=== PATIENT | male | born 1945 | race Caucasian/White ===

== ENCOUNTER 2016-06-11 13:27 | Inpatient (IN) | payer OTHER, MEDICARE ==
[~2016-06-11] VITALS: Ht 182.9 cm; Wt 115.4 kg
[2016-06-13] MEDS ORDERED: WARF-58 PO (14:09)
[2016-06-13] MEDS ORDERED: METO50TA PO (14:09)
[2016-06-13] MEDS ORDERED: ATOR20TA15 PO (14:09)
[2016-06-13] MEDS ORDERED: WARF-60 PO (14:09)
[2016-06-13] MEDS ORDERED: DIGO0.127 PO (14:12)
[2016-06-13] MEDS ORDERED: LISI2.5T3 PO (14:12)
[2016-06-13] MEDS ORDERED: VITA250C3 CHEW (14:13)
[2016-06-13] MEDS ORDERED: CENTTAB8 PO (14:13)
[2016-06-17] MEDS ORDERED: ENOX40P SQ (07:11)
[2016-06-17] MEDS ORDERED: HYDR-3288 PO (07:12)
[2016-06-17] MEDS ORDERED: ASPI81CH37 CHEW (07:12)
[2016-06-17] MEDS ORDERED: MORPHINE SULFATE 4 MG/ML INJ IV PUSH PRN (07:30)
[2016-06-17] MEDS ORDERED: PILL SPLITTER OTHER PRN (07:30)
[2016-06-17] MEDS ORDERED: Post-op Orders (for Pharmacy) MISC XX ONE (07:30)
[2016-06-17] MEDS ORDERED: ZOLPIDEM TARTRATE 5 MG TAB PO PRN (07:30)
[2016-06-17] MEDS ORDERED: ONDANSETRON HCL 4 MG/2 ML VIAL IVP PRN (07:30)
[2016-06-17] MEDS ORDERED: ALUMINUM/MAGNESIUM/SIMETH 30 ML CUP PO PRN (07:30)
[2016-06-17] MEDS ORDERED: BISACODYL 10 MG SUPP PR PRN (07:30)
[2016-06-17] MEDS ORDERED: SODIUM CHLORIDE 0.9% FLUSH 5 ML FLUSH IVF PRN (07:30)
[2016-06-17] MEDS ORDERED: NALOXONE HCL 0.4 MG/ML AMP IV PRN (07:30)
[2016-06-17] MEDS ORDERED: diphenhydrAMINE HCL 50 MG/ML VIAL IV PRN (07:30)
[2016-06-17 08:00] VITALS: BP 158/89; PULSE 97; RESP 20; TEMP 98.4; O2SAT 94
[2016-06-17] MEDS ORDERED: POVIDONE IODINE 7.5% SCRUB 118 ML BOTTLE TOP SCH (08:30)
[2016-06-17] MEDS ORDERED: VANCOMYCIN 1000 MG/NS 250 ML (for <70 kg) IV SCH ×2 (08:30)
[2016-06-17] MEDS ORDERED: ceFAZolin 2 GM PREMIX 50 ML IV SCH (08:30)
[2016-06-17] MEDS ORDERED: CHLORHEXIDINE GLUCONATE 4% SOLN 120 ML BTL TOP SCH (08:30)
[2016-06-17 08:37] LABS: PROTHROMBIN TIME - PATIENT 11.6 SEC (9.8-11.6)
[2016-06-17] MEDS ORDERED: INSULIN HUMAN REGULAR 1,000 UNITS/10 ML VIAL SQ PRN (08:45)
[2016-06-17] MEDS ORDERED: DEXAMETHASONE SOD PHOS 20 MG/5 ML VIAL IV SCH (08:45)
[2016-06-17] MEDS ORDERED: METOPROLOL TARTRATE 25 MG TAB PO PRN (08:45)
[2016-06-17] MEDS ORDERED: LACTATED RINGER'S 1000 ML IV SCH (09:00)
[2016-06-17] MEDS ORDERED: SODIUM CHLORIDE 0.9% IV SCH (09:00)
[2016-06-17] MEDS ORDERED: MULTIVITAMINS/MINERALS THERAPEUTIC TAB PO SCH (09:00)
[2016-06-17] MEDS ORDERED: TRANEXAMIC ACID INJ 2,000 MG in SODIUM CHLORIDE 0.9% INJ 100 ML P-ARTICULR SCH (09:00)
[2016-06-17] MEDS ORDERED: TRANEXAMIC ACID IV SCH (09:00)
[2016-06-17] MEDS ORDERED: SODIUM CHLORID 0.9% 500 ML IV SCH (09:00)
[2016-06-17] MEDS ORDERED: BUPIVACAINE LIPOSO PF 1.3% INJ 20 ML in SODIUM CHLORIDE 0.9% INJ 40 ML P-ARTICULR SCH (09:00)
[2016-06-17] MEDS ORDERED: GENTAMICIN SULFATE 80 MG/2 ML VIAL ONE (09:36)
[2016-06-17] MEDS ORDERED: fentaNYL CITRATE 250 MCG/5 ML AMP ONE (09:44)
[2016-06-17] MEDS ORDERED: MIDAZOLAM HCL 2 MG/2 ML VIAL ONE (09:44)
[2016-06-17] MEDS ORDERED: FAMOTIDINE 20 MG/2 ML VIAL ONE (09:44)
[2016-06-17] MEDS ORDERED: ONDANSETRON HCL 4 MG/2 ML VIAL ONE (09:48)
[2016-06-17] MEDS ORDERED: ACETAMINOPHEN 1000 MG/100 ML VIAL IV ONE (09:48)
[2016-06-17] MEDS ORDERED: SODIUM CHLORIDE 0.9% P-ARTICULR SCH (10:30)
[2016-06-17] MEDS ORDERED: TRANEXAMIC ACID P-ARTICULR SCH (10:30)
[2016-06-17] MEDS ORDERED: LACTATED RINGER'S 1000 ML INJ 1,000 ML IV ONE (12:00)
[2016-06-17] MEDS ORDERED: ePHEDrine/NS 25 MG/5 ML SYR IV ONE (12:00)
[2016-06-17] MEDS ORDERED: PROPOFOL 200 MG/20 ML AMP IV ONE (12:00)
[2016-06-17] MEDS ORDERED: PHENYLEPH/NS 1000 MCG/10 ML SYR IV ONE (12:00)
[2016-06-17] MEDS ORDERED: NEOSTIGMINE 3 MG/3 ML SYR IV ONE (12:00)
[2016-06-17] MEDS ORDERED: SODIUM CHLORID 0.9% 500 ML INJ 500 ML IV ONE (12:00)
[2016-06-17] MEDS ORDERED: DO NOT ADM ANY ANTICOAGULANT DRUGS XX PRN (12:47)
[2016-06-17] MEDS ORDERED: RESP: LEVALBUTEROL HYDROCHLORIDE 1.25 MG/3 ML NEB (SCH) NEB ONE (13:30)
[2016-06-17] MEDS ORDERED: *morphine SULFATE 8 MG/ML PERIprocedure ONLY ONE (13:38)
[2016-06-17] MEDS: SODIUM CHLOR 0.9% 1000 ML INJ 1,000 ML IV SCH ×2 (13:55→17:52)
[2016-06-17] MEDS ORDERED: METOPROLOL TARTRATE 5 MG/5 ML VIAL ONE ×2 (14:16→14:33)
[2016-06-17] MEDS ORDERED: *HYDROmorphone PF 1 MG VIAL PERIprocedural Use ONLY ONE (14:16)
[2016-06-17] MEDS ORDERED: FUROSEMIDE 20 MG/2 ML VIAL IV PUSH ONE (14:45)
[2016-06-17] MEDS ORDERED: FUROSEMIDE 20 MG/2 ML VIAL ONE (14:46)
--- NOTE | 2016-06-17 14:52 | RADRPT ---
EXAM DATE/TIME: 06/17/2016 12:42 [facility] COMPARISON: No previous studies available for comparison. INDICATIONS : Post op left hip. MEDICAL HISTORY : None. SURGICAL HISTORY : left hip replaced ENCOUNTER: Initial ACUITY: 1 day PAIN SCORE: 10/10 LOCATION: Left hip FINDINGS: 3 views of the left hip reveal a total hip prosthesis in good position. No fractures or dislocations are seen. Osteoarthritic changes are seen involving the right hip and SI joints. Degenerative changes seen involving the lower lumbar spine. Soft tissue surgical lubna. CONCLUSION: Left hip prosthesis in good position. Adrian Morales Jr., MD on June 17, 2016 at 14:11 Board Certified Radiologist. This report was verified electronically.
--- NOTE | 2016-06-17 14:59 | RADRPT ---
EXAM DATE/TIME: 06/17/2016 13:32 [facility] COMPARISON: No previous studies available for comparison. INDICATIONS : Post central line placement MEDICAL HISTORY : None. SURGICAL HISTORY : hip replacement, c-spine ENCOUNTER: Initial ACUITY: 1 day PAIN SCORE: 0/10 LOCATION: Bilateral chest FINDINGS: The heart size is enlarged. She presented the bases. Mid-upper lungs are relatively clear. There is a n anterior cervical fusion plate present. No central line is seen at the neck or upper chest. There d oes appear to be a suspected linear density seen over the hepatic portion of the IVC. CONCLUSION: Bibasilar areas of consolidation or atelectasis. Yvon Pop MD on June 17, 2016 at 14:56 Board Certified Radiologist. This report was verified electronically.
[2016-06-17] MEDS ORDERED: DIGOXIN 0.5 MG/2 ML VIAL IV PUSH ONE (15:15)
[2016-06-17] MEDS ORDERED: SODIUM CHLORIDE 0.9% INJ 50 ML ONE (16:42)
[2016-06-17 18:00] VITALS: PULSE 120
[2016-06-17 18:24] LABS: AUTOMATED NEUTROPHIL # 12.7 TH/MM3 (1.8-7.7); BASOPHIL % 0.1 % (0.0-2.0); HEMATOCRIT 41.6 % (39.0-51.0); HEMO FLAGS DIFF FINAL; LYMPHOCYTE # 0.6 TH/MM3 (1.0-4.8); MEAN CELL VOLUME 94.3 FL (80.0-100.0); MEAN CORPUSCULAR HEMOGLOBIN 31.4 PG (27.0-34.0); MEAN CORPUSCULAR HGB CONC 33.3 % (32.0-36.0); MONO % 3.7 % (0.0-8.0); NEUT % 92.2 % (16.0-70.0); PLATELET COUNT 128 TH/MM3 (150-450); RED BLOOD COUNT 4.41 MIL/MM3 (4.50-5.90); RED CELL DISTRIBUTION WIDTH 13.8 % (11.6-17.2); REVIEW FLAG FINAL; WHITE BLOOD COUNT 13.8 TH/MM3 (4.0-11.0)
[2016-06-17 18:41] LABS: ANION GAP 7 MEQ/L (5-15); AST (GOT) 47 U/L (15-37); BLOOD UREA NITROGEN 17 MG/DL (7-18); CHLORIDE 105 MEQ/L (98-107); GLOMERULAR FILTRATION RATE 72 ML/MIN (>89); POTASSIUM 4.5 MEQ/L (3.5-5.1); SODIUM (NA) 141 MEQ/L (136-145)
--- NOTE | 2016-06-17 18:42 | PD.CONS ---
[facility] Service Critical Care Medicine Consult Requested By Orthopedic Surgery Reason for Consult Tachycardia, Atrial flutter/fib Primary Care Physician Cecille Mantilla MD History of Present Illness 70 y/o man s/p left leg orthopedic procedure (BASILIO) with SVT and SOB. Seen on arrival to [facility] with mild SOB and moderate tachycardia 120s. Review of Systems ROS Chronic hoarseness. No chest pain. Breathing without difficulty. Past Family Social History Allergies: Coded Allergies: No Known Allergies (Verified , 06/17/16) Past Medical History Atrial flutter/fib Physical Exam Vital Signs Vital Signs Date Time Temp Pulse Resp B/P Pulse Ox O2 Delivery O2 Flow Rate FiO2 06/17/16 17:00 119 20 128/80 90 Aerosol Mask 98 133/65 06/17/16 16:45 Aerosol Mask 70 06/17/16 16:00 97.8 06/17/16 16:00 115 22 126/78 94 135/67 06/17/16 15:00 116 22 123/77 95 Aerosol Mask 98 133/67 06/17/16 14:45 116 24 124/92 93 Aerosol Mask 98 124/70 06/17/16 14:30 112 24 127/78 94 Aerosol Mask 98 122/63 06/17/16 14:15 118 26 139/90 93 Aerosol Mask 98 141/75 06/17/16 14:00 117 24 124/79 91 Aerosol Mask 98 131/71 06/17/16 13:45 118 26 129/90 92 Aerosol Mask 98 06/17/16 13:30 112 24 130/75 92 Aerosol Mask 98 158/74 06/17/16 13:15 115 18 137/86 96 Aerosol Mask 98 163/84 06/17/16 13:00 119 22 133/86 94 Non-Rebreather 100 173/77 06/17/16 12:55 98.7 124 26 153/91 89 Simple Mask 10 06/17/16 08:00 98.4 97 20 158/89 94 Physical Exam P 118 - 138, BP 132/78, R 16 nonlabored, Sats 93% NRBM Head: Normal. Neck: Supple, airway patent. Hoarse voice, no stridor. Heart: Irreg, Irreg, No JVD. Abdomen: Soft, no guarding. Extremities: Well perfused. Splint left leg. Neuro: Alert, conversant. Wiggles toes and fingers to command. Laboratory Laboratory Tests Test 06/17/16 06/17/16 07:49 08:10 Blood Type A POSITIVE Antibody Screen NEGATIVE Prothrombin Time 11.6 Prothromb Time International 1.0 Ratio Assessment and Plan Assessment and Plan Assessment: 1. S/P left BASILIO. 2. Atrial fibrillation/flutter. 3. SOB/hypoxemia. Plan: 1. Additional dose lopressor for tachycardia. 2. BNP. 3. Protonix. 4. DVT per Surgery. 5. BiPAP prn. 6. Cardiac markers. Overall impression: Stable respiratory and hemodynamic status. Watch respiratory function closely, control ventricular rate. Mendoza Winter MD Jun 17, 2016 18:42
[2016-06-17 18:44] LABS: ALKALINE PHOSPHATASE 123 U/L (45-117); ALT (GPT) 48 U/L (12-78); TOTAL BILIRUBIN ADULT 0.8 MG/DL (0.2-1.0)
[2016-06-17 20:00] VITALS: BP 123/71; PULSE 104; PULSE 115; RESP 18; TEMP 98; O2SAT 99
[2016-06-17 20:05] VITALS: O2SAT 95
[2016-06-17] MEDS: RESP: ALBUTEROL 2.5 MG/IPRATROPIUM 0.5 MG NEB (SCH) NEB (20:05)
--- NOTE | 2016-06-17 20:26 | MB ---
cc: NOBLE LOPEZ,BENJAMIN ROSAS M.D., MD DATE OF CONSULTATION 06/17/[address] Cecille Mantilla [employer] MANAGER Dr. Benjamin Del Real REASON FOR CONSULTATION Postoperative atrial fibrillation. HISTORY OF PRESENT ILLNESS Sid Tate is a pleasant 70-year-old male who presented to [facility] for elective left hip surgery with Dr. Brandan Jacobo. Preoperatively, he took his digoxin and beta-maricarmen therapy. Before the procedure he was noted to be hypertensive with a blood pressure of 160/90 and a heart rate of 100. During the procedure it appears that he continued to have atrial flutter with rapid ventricular response. He was given 5 milligrams of Lopressor IV during the procedure. Postprocedure he was noted to have a pulse ox of 94% and so he was placed on an aerosol mask. I was asked to see Mr. Tate due to his shortness of breath and atrial fibrillation. In seeing him he states that he feels well and just feels sore at his left hip where he had surgery. He denies chest pain or shortness of breath. PAST MEDICAL HISTORY 1. Chronic atrial fibrillation/flutter. 2. Hypertension. 3. Hyperlipidemia. 4. Osteoarthritis. PAST SURGICAL HISTORY 1. Right knee surgery for a meniscal tear. 2. Spinal fusion of C4-C5. ALLERGIES NO KNOWN DRUG ALLERGIES. MEDICATIONS 1. Lisinopril 2.5 milligrams daily. 2. Coumadin to keep INR 2 to 3. 3. Metoprolol tartrate 50 milligrams b.i.d. 4. Digoxin 0.125 milligrams daily. 5. Lipitor 20 milligrams every night. 6. Aspirin 81 milligrams daily. 7. Vitamin C daily. FAMILY HISTORY Denies premature coronary artery disease or sudden cardiac within the family. SOCIAL HISTORY The patient occasionally smokes a cigar. Denies alcohol or drug abuse. REVIEW OF SYSTEMS 14-systems were reviewed including osteopathic. Pertinent positives and negatives above otherwise negative. PHYSICAL EXAMINATION VITAL SIGNS: Temperature 97.8, heart rate 115, blood pressure 135/67, respirations 22, pulse ox 94% on aerosol mask. GENERAL: In general the patient appears well, in no acute distress, alert, awake and oriented x3. HEENT: Extraocular muscles intact. Mucous membranes moist. Neck is supple. No JVD at 45 degrees. No carotid bruits heard bilaterally. Carotid upstroke is brisk in nature. HEART: Heart is irregularly irregular. Positive first and second heart sounds with no murmurs, gallops or rubs. PMI is difficult to ascertain due to body habitus. LUNGS: Lungs have decreased breath sounds at bilateral bases with minimal crackles in the right lower lung. ABDOMEN: Soft, nontender, nondistended. No organomegaly noted. EXTREMITIES: Right lower extremity shows no clubbing, cyanosis or edema. NEUROLOGICALLY: No focal deficits. SKIN: Warm, dry and intact. OSTEOPATHIC: No kyphoscoliosis, lordosis or paraspinal tender points. CARDIOLOGY STUDIES Electrocardiogram (June 17, 2016 at 15:30) atrial flutter with rapid ventricular response, nonspecific ST-T wave changes. IMPRESSION 1. Chronic atrial fibrillation with rapid ventricular response postoperatively. 2. Left hip osteoarthritis status post total hip replacement. 3. Probable bibasilar atelectasis with mild heart failure. 4. Hypertension. RECOMMENDATIONS 1. Mr. Tate appears to be in atrial flutter with a rapid ventricular response. I will plan on giving him 500 micrograms of IV digoxin which may take a little while to work but may control him better overnight. 2. If need be he can be given Lopressor IV or Cardizem to better control his rate. 3. Appears to have some mild postoperative atelectasis and mild heart failure. We will give him a dose of Lasix. 4. Postoperative EKG shows no significant changes. 5. Will plan on transferring him to the Intensive Care Unit to be watched overnight. 6. Further recommendations will be made based on the hospital course. Thank you for allowing me to see Sid Tate. If there are any questions please do not hesitate to call. Noble Lopez DO VGP/EO /4:17 PM /7:00 PM
[2016-06-17] MEDS: ATORVASTATIN 20 MG TAB PO SCH (20:54)
[2016-06-17] MEDS: METOPROLOL TARTRATE 50 MG TAB PO SCH (20:55)
[2016-06-17 22:00] VITALS: PULSE 112
[2016-06-18] VITALS (14 sets, daily range): BP systolic 110–145; BP diastolic 57–80; PULSE 85–118; RESP 16–22; TEMP 97.7–98.6; O2SAT 92–97
[2016-06-18] MEDS: RESP: ALBUTEROL 2.5 MG/IPRATROPIUM 0.5 MG NEB (SCH) NEB ×4 (02:45→19:32)
[2016-06-18] MEDS: ACETAMINOPHEN/HYDROcodone 325 MG/7.5 MG TAB PO PRN ×3 (03:31→22:44)
[2016-06-18] MEDS: SODIUM CHLOR 0.9% 1000 ML INJ 1,000 ML IV SCH ×2 (04:00→14:01)
[2016-06-18 05:15] LABS: HEMATOCRIT 37.5 % (39.0-51.0); MEAN CELL VOLUME 93.9 FL (80.0-100.0); MEAN CORPUSCULAR HEMOGLOBIN 31.7 PG (27.0-34.0); MEAN CORPUSCULAR HGB CONC 33.8 % (32.0-36.0); PLATELET COUNT 125 TH/MM3 (150-450); RED CELL DISTRIBUTION WIDTH 13.7 % (11.6-17.2); REVIEW FLAG FINAL; WHITE BLOOD COUNT 13.7 TH/MM3 (4.0-11.0)
[2016-06-18 05:26] LABS: INTERNATIONAL NORMALIZED RATIO 1.1 RATIO; PROTHROMBIN TIME - PATIENT 11.8 SEC (9.8-11.6)
--- NOTE | 2016-06-18 07:08 | HHI.CCPN ---
Subjective Remarks/Hospital Course Day #2 s/p left BASILIO. Ventricular rate adequately controlled. Good response to diuretics. Check mag, k, phos. Objective Vital Signs Date Time Temp Pulse Resp B/P Pulse Ox O2 Delivery O2 Flow Rate FiO2 06/18/16 06:00 95 06/18/16 04:00 98.2 19 129/69 97 06/17/16 20:05 Non-Rebreather 15.00 100 Intake and Output 06/17/16 06/17/16 06/18/16 08:00 16:00 00:00 Intake Total 800 ml 1114 ml Output Total 775 ml 1325 ml Balance 25 ml -211 ml Result Diagram: 06/18/16 0500 06/17/16 7624 Objective Remarks P 92 - 97, BP 134/77, R 16 nonlabored, Sats 93% NC Head: Normal. Neck: Supple, airway patent. Chronic hoarse voice, no stridor. Heart: Irreg, Irreg, No JVD. Abdomen: Soft, no guarding. Nondistended. Extremities: Well perfused. Splint left leg. Neuro: Alert. Wiggles toes and fingers to command. Conversant. A/P Assessment and Plan Assessment: 1. S/P left BASILIO. 2. Atrial fibrillation/flutter. 3. SOB/hypoxemia. Plan: 1. Additional dose lopressor for tachycardia. 2. BNP. 3. Protonix. 4. DVT per Surgery. 5. BiPAP prn. 6. Cardiac markers. 7. IS. Overall impression: Stable respiratory and hemodynamic status. Watch respiratory function closely, controlled ventricular rate. Mobilize. Mendoza Winter MD Jun 18, 2016 07:08
[2016-06-18] MEDS: DIGOXIN 0.125 MG TAB PO SCH ×2 (07:49→08:38)
[2016-06-18] MEDS: METOPROLOL TARTRATE 50 MG TAB PO SCH ×2 (07:49→20:05)
[2016-06-18] MEDS: LISINOPRIL 5 MG TAB PO SCH ×2 (07:50→08:38)
[2016-06-18 08:15] LABS: BICARBONATE 30.9 MEQ/L (21.0-32.0); POTASSIUM 4.3 MEQ/L (3.5-5.1)
--- NOTE | 2016-06-18 08:30 | PD.ORT.PN ---
Subjective Post Op Day #: 1 Subjective Remarks pain under control. currently denies cp and sob. transferred to ICU post-op due to tachycardia and low O2 sat. Objective Vitals Vital Signs Date Time Temp Pulse Resp B/P Pulse Ox O2 Delivery O2 Flow Rate FiO2 06/18/16 07:27 92 Nasal Cannula 6.00 06/18/16 06:00 95 06/18/16 04:00 91 06/18/16 04:00 98.2 94 19 129/69 97 06/18/16 02:00 94 06/18/16 00:00 98.4 86 18 132/65 96 06/18/16 00:00 86 06/17/16 22:00 112 06/17/16 20:05 95 Non-Rebreather 15.00 100 06/17/16 20:00 115 06/17/16 20:00 98.0 104 18 123/71 99 06/17/16 19:00 97 Non-Rebreather 12.00 06/17/16 18:00 96 Non-Rebreather 13.00 06/17/16 18:00 120 06/17/16 17:00 119 20 128/80 90 Aerosol Mask 98 133/65 06/17/16 16:45 Aerosol Mask 70 06/17/16 16:00 97.8 06/17/16 16:00 115 22 126/78 94 135/67 06/17/16 15:00 116 22 123/77 95 Aerosol Mask 98 133/67 06/17/16 14:45 116 24 124/92 93 Aerosol Mask 98 124/70 06/17/16 14:30 112 24 127/78 94 Aerosol Mask 98 122/63 06/17/16 14:15 118 26 139/90 93 Aerosol Mask 98 141/75 06/17/16 14:00 117 24 124/79 91 Aerosol Mask 98 131/71 06/17/16 13:45 118 26 129/90 92 Aerosol Mask 98 06/17/16 13:30 112 24 130/75 92 Aerosol Mask 98 158/74 06/17/16 13:15 115 18 137/86 96 Aerosol Mask 98 163/84 06/17/16 13:00 119 22 133/86 94 Non-Rebreather 100 173/77 06/17/16 12:55 98.7 124 26 153/91 89 Simple Mask 10 I/O 306/17/16 06/17/16 06/18/16 06/18/16 06/18/16 07:00 15:00 23:00 07:00 15:00 23:00 Intake Total 800 ml 1114 ml 960 ml Output Total 775 ml 1325 ml 600 ml Balance 25 ml -211 ml 360 ml Intake Oral 240 ml 360 ml IV Total 300 ml 874 ml 600 ml Other 500 ml Output Urine Total 325 ml 1325 ml 600 ml Estimated Blood Loss 450 ml # Bowel Movements 0 0 Result Diagram: 06/18/16 0500 06/18/16 0730 Other Results Laboratory Tests Test 06/18/16 05:00 Prothrombin Time 11.8 SEC (9.8-11.6) Prothromb Time International 1.1 RATIO Ratio Objective Remarks in bed, nad dressing c/d/i neg homans nvi Assessment & Plan Ortho Post Op Day #: 1 Problem List: Assessment and Plan s/p L BASILIO posterior approach wbat daily dressing changes lovenox and resume coumadin. d/c lovenox when INR greater than 1.7 transfer to floor when cleared by med d/c planning to snf f/up dr. bright 2 weeks Brandan So Jun 18, 2016 08:30
--- NOTE | 2016-06-18 08:31 | HHI.DCPOC ---
Discharge Care Plan Diagnosis: (1) Primary localized osteoarthrosis, pelvic region and thigh Your Health Problems Are: Difficulty with ADL Goals to Promote Your Health * To prevent worsening of your condition and complications * To maintain your health at the optimal level Directions to Meet Your Goals Take your medications as prescribed Follow your dietary instruction Follow activity as directed Keep your appointments as scheduled Take your immunizations and boosters as scheduled If your symptoms worsen call your PCP, if no PCP go to Urgent Care Center or Emergency Room Smoking is Dangerous to Your Health. Avoid second hand smoke Call the 24-hour hour crisis hotline for domestic abuse at Brandan oS Jun 18, 2016 08:31
[2016-06-18] MEDS ORDERED: COMMODE 3-IN-11 MIS (08:32)
[2016-06-18] MEDS ORDERED: WALKER WHEELS/F1 MIS (08:32)
[2016-06-18] MEDS ORDERED: PNEUMOCOCCAL POLYVALENT INJ 25 MCG/0.5 ML SYR IM ONE (10:00)
[2016-06-18] MEDS: ENOXAPARIN SODIUM 40 MG/0.4 ML SYRINGE SQ SCH (11:31)
--- NOTE | 2016-06-18 13:11 | PD.CARD.PN ---
Subjective Subjective Remarks No chest pain, no shortness of breath Was doing well on nasal canula until he fell asleep and dropped his oxygen saturations, most likely GATO? Objective Medications Current Medications Medications (Trade) Dose Ordered Sig/Bianka Route Start Time Stop Time Status Last Admin (Lipitor) 20 mg HS PO 06/17/16 21:00 06/17/16 20:54 (Lanoxin) 0.125 mg DAILY PO 06/17/16 09:00 06/18/16 08:38 (Prinivil) 2.5 mg DAILY PO 06/17/16 09:00 06/18/16 08:38 Metoprolol Tartrate 50 mg 50 mg BID PO 06/17/16 09:00 06/18/16 07:49 (NS 1000 ml Inj) 1,000 ml @ 100 mls/hr Q10H IV 06/17/16 08:00 06/18/16 04:00 (NS Flush) 2 ml UNSCH PRN IVF 06/17/16 07:30 (NS Flush) 2 ml BID IVF 06/17/16 09:00 (Lovenox Inj) 40 mg Q24H SQ 06/18/16 11:45 06/27/16 11:46 06/18/16 11:31 (Morphine Inj) 3 mg Q3H PRN IV PUSH 06/17/16 07:30 (Cicero 7.5-325 Mg) 1 tab Q4H PRN PO 06/17/16 07:30 06/18/16 12:10 (Cicero 7.5-325 Mg) 2 tab Q4H PRN PO 06/17/16 07:30 (Theragran M Tab) 1 tab BID PO 06/18/16 21:00 08/17/16 20:59 (Zofran Inj) 4 mg Q6H PRN IVP 06/17/16 07:30 (Colace) 100 mg BID PO 06/18/16 21:00 (Mag-Al Plus Susp Liq) 30 ml Q6H PRN PO 06/17/16 07:30 (Ambien) 5 mg HS PRN PO 06/17/16 07:30 (Dulcolax Supp) 10 mg DAILY PRN [place] 06/17/16 07:30 (Milk Of Magnesia Liq) 30 ml DAILY PRN PO 06/17/16 07:30 (Narcan Inj) 0.4 mg UNSCH PRN IV 06/17/16 07:30 (Benadryl Inj) 25 mg Q6H PRN IV 06/17/16 07:30 (Coumadin) 7.5 mg DAILY@16 PO 06/17/16 16:00 (Pill Splitter) 1 ea UNSCH PRN OTHER 06/17/16 07:30 (Betadine 7.5% Scrub) 1 applic ONCE TOP 06/17/16 08:30 06/20/16 08:29 (Hibiclens 4% Top Soln) 1 applic ONCE TOP 06/17/16 08:30 06/20/16 08:29 Vital Signs / I&O Vital Signs Date Time Temp Pulse Resp B/P Pulse Ox O2 Delivery O2 Flow Rate FiO2 06/18/16 12:00 97.9 95 17 110/60 95 06/18/16 12:00 94 06/18/16 10:00 85 06/18/16 08:00 95 06/18/16 08:00 97.7 94 16 110/60 95 06/18/16 07:27 92 Nasal Cannula 6.00 06/18/16 07:00 95 Nasal Cannula 6.00 06/18/16 06:00 95 06/18/16 04:00 91 06/18/16 04:00 98.2 94 19 129/69 97 06/18/16 02:00 94 06/18/16 00:00 98.4 86 18 132/65 96 06/18/16 00:00 86 06/17/16 22:00 112 06/17/16 20:05 95 Non-Rebreather 15.00 100 06/17/16 20:00 115 06/17/16 20:00 98.0 104 18 123/71 99 06/17/16 19:00 97 Non-Rebreather 12.00 06/17/16 18:00 96 Non-Rebreather 13.00 06/17/16 18:00 120 06/17/16 17:00 119 20 128/80 90 Aerosol Mask 98 133/65 06/17/16 16:45 Aerosol Mask 70 06/17/16 16:00 97.8 06/17/16 16:00 115 22 126/78 94 135/67 06/17/16 15:00 116 22 123/77 95 Aerosol Mask 98 133/67 06/17/16 14:45 116 24 124/92 93 Aerosol Mask 98 124/70 06/17/16 14:30 112 24 127/78 94 Aerosol Mask 98 122/63 06/17/16 14:15 118 26 139/90 93 Aerosol Mask 98 141/75 06/17/16 14:00 117 24 124/79 91 Aerosol Mask 98 131/71 06/17/16 13:45 118 26 129/90 92 Aerosol Mask 98 06/17/16 13:30 112 24 130/75 92 Aerosol Mask 98 158/74 06/17/16 13:15 115 18 137/86 96 Aerosol Mask 98 163/84 I/O 06/17/16 06/17/16 06/17/16 06/18/16 06/18/16 06/18/16 07:00 15:00 23:00 07:00 15:00 23:00 Intake Total 800 ml 1114 ml 960 ml Output Total 775 ml 1325 ml 600 ml Balance 25 ml -211 ml 360 ml Intake Oral 240 ml 360 ml IV Total 300 ml 874 ml 600 ml Other 500 ml Output Urine Total 325 ml 1325 ml 600 ml Estimated Blood Loss 450 ml # Bowel Movements 0 0 Physical Exam GENERAL: NAD, AAOx3 SKIN: Warm and dry. HEAD: Atraumatic. Normocephalic. EYES: Pupils equal and round. No scleral icterus. No injection or drainage. ENT: No nasal bleeding or discharge. Mucous membranes pink and moist. NECK: Trachea midline. No JVD. CARDIOVASCULAR: Irregularly irregular RESPIRATORY: No accessory muscle use. Decreased breath sounds bilaterally GASTROINTESTINAL: Abdomen soft, non-tender, nondistended. Hepatic and splenic margins not palpable. MUSCULOSKELETAL: Extremities without clubbing, cyanosis, or edema. No obvious deformities. Left hip surgery NEUROLOGICAL: Awake and alert. No obvious cranial nerve deficits. Motor grossly within normal limits. Five out of 5 muscle strength in the arms and legs. Normal speech. PSYCHIATRIC: Appropriate mood and affect; insight and judgment normal. Laboratory Laboratory Tests Test 06/17/16 06/17/16 06/18/16 06/18/16 17:54 19:40 05:00 07:30 White Blood Count 13.8 TH/MM3 13.7 TH/MM3 Red Blood Count 4.41 MIL/MM3 4.00 MIL/MM3 Hemoglobin 13.8 GM/DL 12.7 GM/DL Hematocrit 41.6 % 37.5 % Mean Corpuscular Volume 94.3 FL 93.9 FL Mean Corpuscular Hemoglobin 31.4 PG 31.7 PG Mean Corpuscular Hemoglobin 33.3 % 33.8 % Concent Red Cell Distribution Width 13.8 % 13.7 % Platelet Count 128 TH/MM3 125 TH/MM3 Mean Platelet Volume 8.5 FL 8.6 FL Neutrophils (%) (Auto) 92.2 % Lymphocytes (%) (Auto) 4.0 % Monocytes (%) (Auto) 3.7 % Eosinophils (%) (Auto) 0.0 % Basophils (%) (Auto) 0.1 % Neutrophils # (Auto) 12.7 TH/MM3 Lymphocytes # (Auto) 0.6 TH/MM3 Monocytes # (Auto) 0.5 TH/MM3 Eosinophils # (Auto) 0.0 TH/MM3 Basophils # (Auto) 0.0 TH/MM3 CBC Comment DIFF FINAL Differential Comment Sodium Level 141 MEQ/L 144 MEQ/L Potassium Level 4.5 MEQ/L 4.3 MEQ/L Chloride Level 105 MEQ/L 107 MEQ/L Carbon Dioxide Level 29.0 MEQ/L 30.9 MEQ/L Anion Gap 7 MEQ/L 6 MEQ/L Blood Urea Nitrogen 17 MG/DL 17 MG/DL Creatinine 1.03 MG/DL 0.89 MG/DL Estimat Glomerular Filtration 72 ML/MIN 85 ML/MIN Rate Random Glucose 147 MG/DL 122 MG/DL Calcium Level 8.3 MG/DL 8.0 MG/DL Total Bilirubin 0.8 MG/DL Aspartate Amino Transf 47 U/L (AST/SGOT) Alanine Aminotransferase 48 U/L (ALT/SGPT) Alkaline Phosphatase 123 U/L Troponin I LESS THAN 0.02 NG/ML B-Type Natriuretic Peptide 78 PG/ML 68 PG/ML Total Protein 6.8 GM/DL Albumin 3.3 GM/DL Lactic Acid Level 0.9 mmol/L Prothrombin Time 11.8 SEC Prothromb Time International 1.1 RATIO Ratio Phosphorus Level 3.2 MG/DL Assessment and Plan Problem List: (1) Status post hip surgery (2) Atrial fibrillation (3) Primary localized osteoarthrosis, pelvic region and thigh Assessment and Plan 1) Atrial fibrillation rates controlled 2) BNP low, does not clinically look like heart failure 3) Continue current medical management from a cardiology standpoint Noble Lopez DO Jun 18, 2016 13:11
--- NOTE | 2016-06-18 15:37 | RADRPT ---
EXAM DATE/TIME: 06/18/2016 14:54 [facility] COMPARISON: CHEST SINGLE AP, June 17, 2016, 13:32. INDICATIONS : Atelectasis. MEDICAL HISTORY : None. SURGICAL HISTORY : hip replacement, c-spine. ENCOUNTER: Subsequent ACUITY: 2 days PAIN SCORE: Non-responsive. LOCATION: Bilateral chest FINDINGS: The heart size is within normal limits. There is increased density at the bases bilaterally. There so me blunting of the left costophrenic angle. Spurs are seen in the thoracic spine. There is anterior c ervical fusion plate present. CONCLUSION: Bibasilar areas of consolidation or atelectasis with a suspected mild left effusion. Yvon Pop MD on June 18, 2016 at 15:34 Board Certified Radiologist. This report was verified electronically.
[2016-06-18] MEDS: WARFARIN SOD 7.5 MG TAB PO SCH ×2 (16:00→16:44)
--- NOTE | 2016-06-18 16:09 | EKG ---
Date Performed: 06/17/2016 Time Performed: 15:30:57 PTAGE: 70 years EKG: ATRIAL FLUTTER/TACHYCARDIA WITH RAPID VENTRICULAR RESPONSE NONSPECIFIC ST & T-WAVE ABNORMAL ITY SINCE PRIOR TRACING ATRIAL FLUTTER WITH RAPID VENTRICULAR RESPONSE HAS REPLACED SINUS BRADYCARDIA . ABNORMAL ECG PREVIOUS TRACING : 10/07/2005 11.21 DOCTOR: Luis Felipe English Interpretating Date/Time 06/18/2016 16:09:16
[2016-06-18] MEDS ORDERED: FUROSEMIDE 40 MG/4 ML VIAL IV PUSH SCH (17:15)
[2016-06-18] MEDS: ATORVASTATIN 20 MG TAB PO SCH (20:05)
[2016-06-18] MEDS: DOCUSATE SODIUM 100 MG CAP PO SCH (20:05)
[2016-06-18] MEDS: MULTIVITAMINS/MINERALS THERAPEUTIC TAB PO SCH (20:05)
[2016-06-18] MEDS: SODIUM CHLORIDE 0.9% FLUSH 5 ML FLUSH IVF SCH (20:06)
[2016-06-19] VITALS (12 sets, daily range): BP systolic 102–128; BP diastolic 56–65; PULSE 81–118; RESP 13–26; TEMP 97.3–100.3; O2SAT 92–97
[2016-06-19] MEDS: RESP: ALBUTEROL 2.5 MG/IPRATROPIUM 0.5 MG NEB (SCH) NEB ×3 (03:21→16:23)
[2016-06-19 04:09] LABS: HEMATOCRIT 37.5 % (39.0-51.0); MEAN CELL VOLUME 93.2 FL (80.0-100.0); MEAN CORPUSCULAR HEMOGLOBIN 32.4 PG (27.0-34.0); MEAN CORPUSCULAR HGB CONC 34.8 % (32.0-36.0); PLATELET COUNT 126 TH/MM3 (150-450); RED BLOOD COUNT 4.02 MIL/MM3 (4.50-5.90); RED CELL DISTRIBUTION WIDTH 13.8 % (11.6-17.2); REVIEW FLAG FINAL; WHITE BLOOD COUNT 13.2 TH/MM3 (4.0-11.0)
[2016-06-19 04:24] LABS: PROTHROMBIN TIME - PATIENT 11.6 SEC (9.8-11.6)
[2016-06-19 04:29] LABS: BICARBONATE 32.1 MEQ/L (21.0-32.0)
[2016-06-19] MEDS: ACETAMINOPHEN/HYDROcodone 325 MG/7.5 MG TAB PO PRN ×3 (05:21→22:03)
--- NOTE | 2016-06-19 08:07 | PD.ORT.PN ---
Subjective Post Op Day #: 2 Subjective Remarks pain under control. currently denies cp and sob. transferred to floor yesterday. Objective Vitals Vital Signs Date Time Temp Pulse Resp B/P Pulse Ox O2 Delivery O2 Flow Rate FiO2 06/19/16 06:00 97 06/19/16 04:00 97.8 118 26 110/59 96 06/19/16 04:00 112 06/19/16 02:00 98 06/19/16 00:00 100.3 100 13 108/57 96 Arterial Line 06/19/16 00:00 96 06/18/16 22:00 107 06/18/16 20:00 118 06/18/16 20:00 98.6 116 18 119/57 95 06/18/16 19:32 97 Simple Mask 8.00 06/18/16 19:00 97 Simple Mask 10.00 06/18/16 18:00 98 06/18/16 16:00 98.1 104 22 145/80 95 06/18/16 16:00 116 06/18/16 14:04 22 06/18/16 14:00 96 06/18/16 12:00 97.9 95 17 110/60 95 06/18/16 12:00 94 06/18/16 10:00 85 I/O 06/18/16 06/18/16 06/18/16 06/19/16 06/19/16 06/19/16 07:00 15:00 23:00 07:00 15:00 23:00 Intake Total 960 ml 1421 ml 375 ml 480 ml Output Total 600 ml 675 ml 760 ml 640 ml Balance 360 ml 746 ml -385 ml -160 ml Intake Oral 360 ml 420 ml 375 ml 480 ml IV Total 600 ml 1001 ml 0 ml Output Urine Total 600 ml 675 ml 760 ml 640 ml # Bowel Movements 0 0 0 Result Diagram: 06/19/16 0306 06/19/16 0306 Other Results Laboratory Tests Test 06/19/16 03:06 Prothrombin Time 11.6 SEC (9.8-11.6) Prothromb Time International 1.0 RATIO Ratio Imaging Last 24 hours Impressions Chest X-Ray 06/18/16 1456 Signed Impressions: Service Date/Time: Saturday, June 18, 2016 14:54 - CONCLUSION: Bibasilar areas of consolidation or atelectasis with a suspected mild left effusion. Yvon Pop MD Objective Remarks in bed, nad O2 mask in place incision no erythema, no active drainage neg homans nvi Assessment & Plan Ortho Post Op Day #: 2 Problem List: Assessment and Plan s/p L BASILIO posterior approach wbat daily dressing changes lovenox and resume coumadin. d/c lovenox when INR greater than 1.7 transfer to floor yesterday OOB and IS. needs to work with PT d/c planning to snf f/up dr. bright 2 weeks Brandan So Jun 19, 2016 08:07
[2016-06-19] MEDS: DIGOXIN 0.125 MG TAB PO SCH (08:45)
[2016-06-19] MEDS: METOPROLOL TARTRATE 50 MG TAB PO SCH ×2 (08:46→22:09)
[2016-06-19] MEDS: MULTIVITAMINS/MINERALS THERAPEUTIC TAB PO SCH ×2 (08:46→22:04)
[2016-06-19] MEDS: LISINOPRIL 5 MG TAB PO SCH (08:46)
[2016-06-19] MEDS: SODIUM CHLORIDE 0.9% FLUSH 5 ML FLUSH IVF SCH ×2 (08:47→22:05)
[2016-06-19] MEDS: DOCUSATE SODIUM 100 MG CAP PO SCH ×2 (08:47→22:04)
[2016-06-19] MEDS: ENOXAPARIN SODIUM 40 MG/0.4 ML SYRINGE SQ SCH (11:47)
--- NOTE | 2016-06-19 14:09 | HHI.PR ---
Subjective Remarks Follow-up for hip replacement and A. fib with RVR. Patient denies any shortness of breath, heart racing, lower extremity swelling. He states he has oxygen at home as needed for sleep apnea, but he does not use it much. Currently on simple mask at 6 L. Discussed with RN, reportedly desatted previously on nasal cannula. Did not get out of bed with PT today. Objective Vitals Vital Signs Date Time Temp Pulse Resp B/P Pulse Ox O2 Delivery O2 Flow Rate FiO2 06/19/16 12:38 97 Simple Mask 8.00 06/19/16 12:00 97.3 91 18 102/56 96 06/19/16 08:00 97.9 81 18 128/60 95 06/19/16 06:00 97 06/19/16 04:00 97.8 118 26 110/59 96 06/19/16 04:00 112 06/19/16 02:00 98 06/19/16 00:00 100.3 100 13 108/57 96 Arterial Line 06/19/16 00:00 96 06/18/16 22:00 107 06/18/16 20:00 118 06/18/16 20:00 98.6 116 18 119/57 95 06/18/16 19:32 97 Simple Mask 8.00 06/18/16 19:00 97 Simple Mask 10.00 06/18/16 18:00 98 06/18/16 16:00 98.1 104 22 145/80 95 06/18/16 16:00 116 I/O 06/18/16 06/18/16 06/18/16 06/19/16 06/19/16 06/19/16 07:00 15:00 23:00 07:00 15:00 23:00 Intake Total 960 ml 1421 ml 375 ml 480 ml 120 ml Output Total 600 ml 675 ml 760 ml 640 ml Balance 360 ml 746 ml -385 ml -160 ml 120 ml Intake Oral 360 ml 420 ml 375 ml 480 ml 120 ml IV Total 600 ml 1001 ml 0 ml Output Urine Total 600 ml 675 ml 760 ml 640 ml # Bowel Movements 0 0 0 Result Diagram: 06/19/166 06/19/16 030 Imaging Last Impressions Chest X-Ray 06/18/166 Signed Impressions: Service Date/Time: Saturday, June 18, 2016 14:54 - CONCLUSION: Bibasilar areas of consolidation or atelectasis with a suspected mild left effusion. Yvon Pop MD Hip and Pelvis X-Ray 06/17/16 0717 Signed Impressions: Service Date/Time: Friday, June 17, 2016 12:42 - CONCLUSION: Left hip prosthesis in good position. Adrian Morales Jr., MD Objective Remarks GENERAL: Well-developed well-nourished. In no acute distress. SKIN: Warm and dry. No lesions noted. HEENT: Normocephalic. Pupils equal and round. Mucous membranes pink and moist. CARDIOVASCULAR: Regular rate and rhythm. No murmur appreciated. RESPIRATORY: No accessory muscle use. Clear to auscultation. Decreased breath sounds. GASTROINTESTINAL: Abdomen soft, non-tender, nondistended. Bowel sounds x4. MUSCULOSKELETAL: No obvious deformities. No clubbing or cyanosis. No edema. NEUROLOGICAL: Awake and alert. No focal neurological deficits. Moves upper and lower extremities spontaneously. Normal speech. PSYCHIATRIC: Appropriate mood and affect; insight and judgment normal. A/P Assessment and Plan 70 y/o man s/p left leg orthopedic procedure (BASILIO) with SVT and SOB S/P Left total hip arthroscopy: Perioperative management per orthopedics including pain control, activity, rehabilitation. A. fib with RVR: Cardiology consulted. Continue digoxin, metoprolol. Warfarin resumed. Improved Hypoxia: Chronic respiratory failure on home oxygen as needed. Secondary to GATO per patient. O2 as needed currently on 6 L simple mask, wean as tolerated, discussed with RN. Schedule nebs. Possibly exacerbated by pleural effusion as below. Incentive spirometry. Pleural effusion: Chest x-ray showed bibasilar areas of consolidation or atelectasis with suspected mild left effusion. Cardiology doubts CHF. BNP low at 68. Given IV Lasix, give additional. Hyperglycemia: Mild. Check hemoglobin A1c. DVT prophylaxis: Coumadin with Lovenox bridge Written by Jose Guadalupe Rodriguez, acting as scribe for Dr. Henson on 06/19/16 at 14:09. All or portions of this note were transcribed by scribe []. I, Dr. Je Henson personally performed the history, physical exam, and medical decision making; and confirmed the accuracy of the information in the transcribed note. Authenticated by Dr. Je Henson on 06/19/16 at 16:49. Discharge Planning [facility] at [place] Jose Guadalupe Rodriguez Jun 19, 2016 14:09 Je Henson MD Jun 19, 2016 16:50
[2016-06-19] MEDS ORDERED: FUROSEMIDE 20 MG/2 ML VIAL IV PUSH ONE (14:45)
[2016-06-19] MEDS: WARFARIN SOD 7.5 MG TAB PO SCH (15:03)
--- NOTE | 2016-06-19 16:18 | MP ---
cc: REA ESCAMILLA M.D. DATE OF SURGERY: 06/17/2016 PREOPERATIVE DIAGNOSIS Left hip osteoarthritis. POSTOPERATIVE DIAGNOSIS Left hip osteoarthritis. PROCEDURE Left total hip arthroplasty. SURGEON Dr. Rea Escamilla. ANESTHESIA General. ESTIMATED BLOOD LOSS 200 ccs. COMPLICATIONS None. IMPLANTS USED DePuy Corail size 15 Press-Fit standard offset femoral stem, size 56 mm solid pinnacle Gription cup, size 36 mm ceramic head, +8.5 neck. JUSTIFICATION The patient is a 70-year-old male with history of severe end-stage osteoarthritis involving the left hip. He has severe disabling pain with standing, walking, ambulation, weightbearing activities, even severe pain at rest. He has failed greater than 3 months of nonoperative conservative treatment to include medications, therapy, ambulatory assisted aids, home exercise program, activity modification, weight loss attempts. X-rays of the left hip reveal severe end-stage osteoarthritis with joint space narrowing, subchondral sclerosis, subchondral cyst osteophyte formation and subluxation. The patient was counseled as to the risks, benefits and alternatives to a total hip arthroplasty. The risks were discussed which include but not limited to anesthesia, bleeding, infection, damage to nerves and blood vessels, pain, stiffness, failure of components, leg length discrepancy, dislocation, blood clots, pulmonary embolism and even . The patient's pain is severe, he favored the benefits over the risks and did wish to proceed with surgery. PROCEDURE IN DETAIL A written consent was obtained. The patient was identified by name, taken to the operating room and placed supine on the operating table. General anesthesia was administered as well as 2 grams of IV Ancef and 1 gram of IV vancomycin. The patient was carefully turned to a right lateral decubitus position, a lateral arm roll was placed. All bony prominences and pressure points were well padded. The left hip and left lower extremity were prepped and draped using isopropyl alcohol, Hibiclens solution and Chloraprep solution. After timeout was performed a longitudinal incision was made over the posterolateral aspect of the left hip. The fascial layer was incised, the pyriformis and capsule was incised and tagged with #2 FiberWire suture. The hip was dislocated and oscillating saw was used to perform a femoral neck cut. The osteoarthritic femoral head and neck component was removed. A 10 blade scalpel was used to excise the labrum. Sequential reaming of the acetabulum began at size 49 and was carried through to size 56 mm. Subsequently a solid pinnacle size 56 cup was implanted approximately 45 degrees of adduction and 15 degrees and anteversion. There was good purchase and fixation after insertion of the cup. A screw hole eliminator was placed followed by the +4 high offset posterior high wall polyethylene, highly cross-linked liner. The liner was impacted in place and tested for stability. Attention was turned to the femur where a box cutting osteotome was used to gain entrance into the intramedullary canal of the femur. This was followed by canal lateralizing reamer. Sequential broaching up to size 15 was followed by calcar planer. Trial head and neck combinations were evaluated and final components implanted with the 8.5 neck. Clinically the leg lengths were felt relatively symmetric. The patient had severe flexion contractures of his hip preoperatively and this certainly was present postoperatively and did play into stability of his hip. I was not able to quite achieve full extension of his hip due to the severe contractures but with full passive extension and external rotation there was no evidence of anterior instability or impingement. I could flex the hip 90 degrees and internally rotate the hip approximately 60 degrees before there was evidence of posterior instability. Soft tissue tension felt appropriate. The surgical wounds were thoroughly irrigated with sterile saline solution. The pyriformis and capsule was primarily repaired with #2 FiberWire suture, fascial layer with #1 Vicryl suture, subcutaneous layer with 2-0 Vicryl suture, skin was closed with Dermabond. Sterile dressings were applied. The patient tolerated the procedure well. There were no intraoperative complications noted. Zane So, physician cement tester assistant certified was present during the entire procedure to include patient positioning, the procedure itself. The medical necessity of physician cement tester assistant was indicated in this case due to the complexity of the procedure and he assisted with appropriate manipulation of the leg and also retraction of muscle, tendon, bone, neurovascular structures. He assisted with preparation of bone and also implantation of the prosthetic replacement. Rea Escamilla MD JWM/SAMUELL /11:32 AM /2:39 PM
[2016-06-19 16:28] LABS: HEMOGLOBIN A1a 0.8 %; HEMOGLOBIN A1b 1.6 %; HEMOGLOBIN Ao 84.9 %; HEMOGLOBIN F 0.2 %; HEMOGLOBIN LA1C 2.1 %
--- NOTE | 2016-06-19 17:55 | PD.CARD.PN ---
Subjective Subjective Remarks No chest pain, no shortness of breath on the oxygen Objective Medications Current Medications Medications (Trade) Dose Ordered Sig/Bianka Route Start Time Stop Time Status Last Admin (Lipitor) 20 mg HS PO 06/17/16 21:00 06/18/16 20:05 (Lanoxin) 0.125 mg DAILY PO 06/17/16 09:00 06/19/16 08:45 (Prinivil) 2.5 mg DAILY PO 06/17/16 09:00 06/19/16 08:46 (Lopressor) 50 mg BID PO 06/17/16 09:00 06/19/16 08:46 (NS Flush) 2 ml UNSCH PRN IVF 06/17/16 07:30 (NS Flush) 2 ml BID IVF 06/17/16 09:00 06/19/16 08:47 (Lovenox Inj) 40 mg Q24H SQ 06/18/16 11:45 06/27/16 11:46 06/19/16 11:47 (Morphine Inj) 3 mg Q3H PRN IV PUSH 06/17/16 07:30 ([place] 7.5-325 Mg) 1 tab Q4H PRN PO 06/17/16 07:30 06/19/16 13:35 ([place] 7.5-325 Mg) 2 tab Q4H PRN PO 06/17/16 07:30 (Theragran M Tab) 1 tab BID PO 06/18/16 21:00 08/17/16 20:59 06/19/16 08:46 (Zofran Inj) 4 mg Q6H PRN IVP 06/17/16 07:30 (Colace) 100 mg BID PO 06/18/16 21:00 06/19/16 08:47 (Mag-Al Plus Susp Liq) 30 ml Q6H PRN PO 06/17/16 07:30 (Ambien) 5 mg HS PRN PO 06/17/16 07:30 (Dulcolax Supp) 10 mg DAILY PRN [place] 06/17/16 07:30 (Milk Of Magnesia Liq) 30 ml DAILY PRN PO 06/17/16 07:30 (Narcan Inj) 0.4 mg UNSCH PRN IV 06/17/16 07:30 (Benadryl Inj) 25 mg Q6H PRN IV 06/17/16 07:30 (Coumadin) 7.5 mg DAILY@16 PO 06/17/16 16:00 06/19/16 15:03 (Pill Splitter) 1 ea UNSCH PRN OTHER 06/17/16 07:30 (Betadine 7.5% Scrub) 1 applic ONCE TOP 06/17/16 08:30 06/20/16 08:29 (Hibiclens 4% Top Soln) 1 applic ONCE TOP 06/17/16 08:30 06/20/16 08:29 Vital Signs / I&O Vital Signs Date Time Temp Pulse Resp B/P Pulse Ox O2 Delivery O2 Flow Rate FiO2 06/19/16 16:25 92 Simple Mask 5.00 06/19/16 16:00 97.6 99 24 110/58 95 06/19/16 14:25 96 Nasal Cannula 6.00 06/19/16 12:38 97 Simple Mask 8.00 06/19/16 12:00 97.3 91 18 102/56 96 06/19/16 08:00 97.9 81 18 128/60 95 06/19/16 06:00 97 06/19/16 04:00 97.8 118 26 110/59 96 06/19/16 04:00 112 06/19/16 02:00 98 06/19/16 00:00 100.3 100 13 108/57 96 Arterial Line 06/19/16 00:00 96 06/18/16 22:00 107 06/18/16 20:00 118 06/18/16 20:00 98.6 116 18 119/57 95 06/18/16 19:32 97 Simple Mask 8.00 06/18/16 19:00 97 Simple Mask 10.00 06/18/16 18:00 98 I/O 06/18/16 06/18/16 06/18/16 06/19/16 06/19/16 06/19/16 07:00 15:00 23:00 07:00 15:00 23:00 Intake Total 960 ml 1421 ml 375 ml 480 ml 600 ml Output Total 600 ml 675 ml 760 ml 640 ml 800 ml Balance 360 ml 746 ml -385 ml -160 ml -200 ml Intake Oral 360 ml 420 ml 375 ml 480 ml 600 ml IV Total 600 ml 1001 ml 0 ml Output Urine Total 600 ml 675 ml 760 ml 640 ml 800 ml # Bowel Movements 0 0 0 0 Physical Exam GENERAL: NAD, AAOx3 SKIN: Warm and dry. HEAD: Atraumatic. Normocephalic. EYES: Pupils equal and round. No scleral icterus. No injection or drainage. ENT: No nasal bleeding or discharge. Mucous membranes pink and moist. NECK: Trachea midline. No JVD. CARDIOVASCULAR: Irregularly irregular RESPIRATORY: No accessory muscle use. Relatively clear to auscultation GASTROINTESTINAL: Abdomen soft, non-tender, nondistended. Hepatic and splenic margins not palpable. MUSCULOSKELETAL: Extremities without clubbing, cyanosis, or edema. No obvious deformities. Left hip surgery NEUROLOGICAL: Awake and alert. No obvious cranial nerve deficits. Motor grossly within normal limits. Five out of 5 muscle strength in the arms and legs. Normal speech. PSYCHIATRIC: Appropriate mood and affect; insight and judgment normal. Laboratory Laboratory Tests Test 06/19/16 03:06 White Blood Count 13.2 TH/MM3 Red Blood Count 4.02 MIL/MM3 Hemoglobin 13.0 GM/DL Hematocrit 37.5 % Mean Corpuscular Volume 93.2 FL Mean Corpuscular Hemoglobin 32.4 PG Mean Corpuscular Hemoglobin 34.8 % Concent Red Cell Distribution Width 13.8 % Platelet Count 126 TH/MM3 Mean Platelet Volume 9.1 FL Prothrombin Time 11.6 SEC Prothromb Time International 1.0 RATIO Ratio Sodium Level 143 MEQ/L Potassium Level 4.0 MEQ/L Chloride Level 103 MEQ/L Carbon Dioxide Level 32.1 MEQ/L Anion Gap 8 MEQ/L Blood Urea Nitrogen 22 MG/DL Creatinine 1.05 MG/DL Estimat Glomerular Filtration 70 ML/MIN Rate Random Glucose 117 MG/DL Calcium Level 8.5 MG/DL Assessment and Plan Problem List: (1) Status post hip surgery (2) Atrial fibrillation (3) Primary localized osteoarthrosis, pelvic region and thigh Assessment and Plan 1) Atrial fibrillation rates controlled 2) BNP low, does not clinically look like heart failure 3) Continue current medical management from a cardiology standpoint 4) ?atelectasis, only using the IS a few times a day... needs to be worked by PT and use IS multiple times per day Noble Lopez DO Jun 19, 2016 17:55
[2016-06-19] MEDS: ATORVASTATIN 20 MG TAB PO SCH (22:04)
[2016-06-20] VITALS (7 sets, daily range): BP systolic 99–115; BP diastolic 58–68; PULSE 98–113; RESP 16–20; TEMP 95.5–98.7; O2SAT 93–96
[2016-06-20] MEDS: RESP: ALBUTEROL 2.5 MG/IPRATROPIUM 0.5 MG NEB (SCH) NEB ×4 (05:28→21:38)
[2016-06-20 07:01] LABS: HEMATOCRIT 39.1 % (39.0-51.0); MEAN CELL VOLUME 95.5 FL (80.0-100.0); MEAN CORPUSCULAR HEMOGLOBIN 32.7 PG (27.0-34.0); MEAN CORPUSCULAR HGB CONC 34.2 % (32.0-36.0); PLATELET COUNT 143 TH/MM3 (150-450); RED BLOOD COUNT 4.09 MIL/MM3 (4.50-5.90); RED CELL DISTRIBUTION WIDTH 13.8 % (11.6-17.2); REVIEW FLAG FINAL; WHITE BLOOD COUNT 11.5 TH/MM3 (4.0-11.0)
[2016-06-20 07:05] LABS: INTERNATIONAL NORMALIZED RATIO 1.1 RATIO
--- NOTE | 2016-06-20 07:47 | PD.ORT.PN ---
Subjective Post Op Day #: 3 Subjective Remarks pain under control. currently denies cp and sob. still in simple mask. Objective Vitals Vital Signs Date Time Temp Pulse Resp B/P Pulse Ox O2 Delivery O2 Flow Rate FiO2 06/20/16 05:31 96 Simple Mask 5.00 06/20/16 04:00 97.0 109 16 99/61 96 06/20/16 00:00 98.7 98 16 103/58 95 06/19/16 22:08 125/65 06/19/16 19:50 Simple Mask 5.00 06/19/16 19:28 Nasal Cannula 5.00 06/19/16 18:50 97.4 115 18 113/64 96 06/19/16 16:25 92 Simple Mask 5.00 06/19/16 16:00 97.6 99 24 110/58 95 06/19/16 14:25 96 Nasal Cannula 6.00 06/19/16 12:38 97 Simple Mask 8.00 06/19/16 12:00 97.3 91 18 102/56 96 06/19/16 08:00 97.9 81 18 128/60 95 I/O 06/19/16 06/19/16 06/19/16 06/20/16 06/20/16 06/20/16 07:00 15:00 23:00 07:00 15:00 23:00 Intake Total 480 ml 600 ml 240 ml 240 ml Output Total 640 ml 800 ml 150 ml 500 ml Balance -160 ml -200 ml 90 ml -260 ml Intake Oral 480 ml 600 ml 240 ml 240 ml Output Urine Total 640 ml 800 ml 150 ml 500 ml # Bowel Movements 0 0 0 Result Diagram: 06/20/16 0635 06/19/16 0306 Other Results Laboratory Tests Test 06/20/16 06:35 Prothrombin Time 12.0 SEC (9.8-11.6) Prothromb Time International 1.1 RATIO Ratio Imaging Last 24 hours Impressions Chest X-Ray 06/18/16 1456 Signed Impressions: Service Date/Time: Saturday, June 18, 2016 14:54 - CONCLUSION: Bibasilar areas of consolidation or atelectasis with a suspected mild left effusion. Yvon Pop MD Objective Remarks in bed, nad simple O2 mask in place dressing c/d/i neg homans nvi Assessment & Plan Ortho Post Op Day #: 3 Problem List: Assessment and Plan s/p L BASILIO posterior approach wbat daily dressing changes lovenox and resume coumadin. d/c lovenox when INR greater than 1.7 patient still on simple mask and has not been OOB with PT OOB and IS. needs to work with PT d/c planning to snf f/up dr. bright 2 weeks Brandan So Jun 20, 2016 07:47
[2016-06-20] MEDS: DOCUSATE SODIUM 100 MG CAP PO SCH ×2 (09:23→20:07)
[2016-06-20] MEDS: METOPROLOL TARTRATE 50 MG TAB PO SCH ×2 (09:23→20:07)
[2016-06-20] MEDS: MULTIVITAMINS/MINERALS THERAPEUTIC TAB PO SCH ×2 (09:23→20:07)
[2016-06-20] MEDS: DIGOXIN 0.125 MG TAB PO SCH (09:23)
[2016-06-20] MEDS: LISINOPRIL 5 MG TAB PO SCH (09:23)
[2016-06-20] MEDS: ACETAMINOPHEN/HYDROcodone 325 MG/7.5 MG TAB PO PRN (09:24)
[2016-06-20] MEDS: SODIUM CHLORIDE 0.9% FLUSH 5 ML FLUSH IVF SCH ×2 (09:30→20:10)
--- NOTE | 2016-06-20 12:04 | HHI.PR ---
Subjective Remarks Follow-up hypoxia. Denies shortness of breath, Chest pain and palpitations. Oxygen down to 5 L nasal cannula. Discussed with RN Objective Vitals Vital Signs Date Time Temp Pulse Resp B/P Pulse Ox O2 Delivery O2 Flow Rate FiO2 06/20/16 09:08 Simple Mask 5.00 06/20/16 08:02 98.1 98 20 107/66 94 06/20/16 05:31 96 Simple Mask 5.00 06/20/16 04:00 97.0 109 16 99/61 96 06/20/16 00:00 98.7 98 16 103/58 95 06/19/16 22:08 125/65 06/19/16 19:50 Simple Mask 5.00 06/19/16 19:28 Nasal Cannula 5.00 06/19/16 18:50 97.4 115 18 113/64 96 06/19/16 16:25 92 Simple Mask 5.00 06/19/16 16:00 97.6 99 24 110/58 95 06/19/16 14:25 96 Nasal Cannula 6.00 06/19/16 12:38 97 Simple Mask 8.00 I/O 06/19/16 06/19/16 06/19/16 06/20/16 06/20/16 06/20/16 07:00 15:00 23:00 07:00 15:00 23:00 Intake Total 480 ml 600 ml 240 ml 240 ml Output Total 640 ml 800 ml 150 ml 500 ml Balance -160 ml -200 ml 90 ml -260 ml Intake Oral 480 ml 600 ml 240 ml 240 ml Output Urine Total 640 ml 800 ml 150 ml 500 ml # Bowel Movements 0 0 0 Result Diagram: 06/20/16 0635 06/19/16 0306 Imaging Last Impressions Chest X-Ray 06/18/16 1456 Signed Impressions: Service Date/Time: Saturday, June 18, 2016 14:54 - CONCLUSION: Bibasilar areas of consolidation or atelectasis with a suspected mild left effusion. Yvon Pop MD Hip and Pelvis X-Ray 06/17/16 0717 Signed Impressions: Service Date/Time: Friday, June 17, 2016 12:42 - CONCLUSION: Left hip prosthesis in good position. Adrian Morales Jr., MD Objective Remarks GENERAL: Well-developed well-nourished. In no acute distress. 5 L nasal cannula SKIN: Warm and dry. No lesions noted. HEENT: Normocephalic. Pupils equal and round. Mucous membranes pink and moist. CARDIOVASCULAR: Regular rate and rhythm. No murmur appreciated. RESPIRATORY: No accessory muscle use. Clear to auscultation. Decreased breath sounds. GASTROINTESTINAL: Abdomen soft, non-tender, nondistended. Bowel sounds x4. MUSCULOSKELETAL: No obvious deformities. No clubbing or cyanosis. No edema. NEUROLOGICAL: Awake and alert. No focal neurological deficits. Moves upper and lower extremities spontaneously. Normal speech. PSYCHIATRIC: Appropriate mood and affect; insight and judgment normal. Procedures Left total hip arthroplasty A/P Assessment and Plan 70 y/o man s/p left leg orthopedic procedure (BASILIO) with SVT and SOB S/P Left total hip arthroscopy: Perioperative management per orthopedics including pain control, activity, rehabilitation. A. fib with RVR: Cardiology consulted. Continue digoxin, metoprolol. Warfarin resumed. Improved Hypoxia: Chronic respiratory failure on home oxygen as needed. Secondary to GATO per patient. O2 as needed currently on 5 L nasal cannula, wean as tolerated , discussed with RN. Schedule nebs. Possibly exacerbated by pleural effusion as below. Incentive spirometry. Ez Pap and Acapella Pleural effusion: Chest x-ray showed bibasilar areas of consolidation or atelectasis with suspected mild left effusion. Cardiology doubts CHF. BNP low at 68. Given IV Lasix, give additional. Maintain negative fluid balance Hyperglycemia: Mild. A1c 5.8 DVT prophylaxis: Coumadin with Lovenox bridge Discharge Planning Rehabilitation tomorrow if requiring less oxygen Je Henson MD Jun 20, 2016 12:04
[2016-06-20] MEDS ORDERED: IPRASOL NEB (12:09)
--- NOTE | 2016-06-20 14:01 | PD.CARD.PN ---
Subjective Subjective Remarks No chest pain, no shortness of breath Telemetry heart rates mostly controlled Objective Medications Current Medications Medications (Trade) Dose Ordered Sig/Bianka Route Start Time Stop Time Status Last Admin (Lipitor) 20 mg HS PO 06/17/16 21:00 06/19/16 22:04 (Lanoxin) 0.125 mg DAILY PO 06/17/16 09:00 06/20/16 09:23 (Prinivil) 2.5 mg DAILY PO 06/17/16 09:00 06/20/16 09:23 (Lopressor) 50 mg BID PO 06/17/16 09:00 06/20/16 09:23 (NS Flush) 2 ml UNSCH PRN IVF 06/17/16 07:30 (NS Flush) 2 ml BID IVF 06/17/16 09:00 06/20/16 09:30 (Lovenox Inj) 40 mg Q24H SQ 06/18/16 11:45 06/27/16 11:46 06/19/16 11:47 (Morphine Inj) 3 mg Q3H PRN IV PUSH 06/17/16 07:30 ([place] 7.5-325 Mg) 1 tab Q4H PRN PO 06/17/16 07:30 06/20/16 09:24 ([place] 7.5-325 Mg) 2 tab Q4H PRN PO 06/17/16 07:30 (Theragran M Tab) 1 tab BID PO 06/18/16 21:00 08/17/16 20:59 06/20/16 09:23 (Zofran Inj) 4 mg Q6H PRN IVP 06/17/16 07:30 (Colace) 100 mg BID PO 06/18/16 21:00 06/20/16 09:23 (Mag-Al Plus Susp Liq) 30 ml Q6H PRN PO 06/17/16 07:30 (Ambien) 5 mg HS PRN PO 06/17/16 07:30 (Dulcolax Supp) 10 mg DAILY PRN [place] 06/17/16 07:30 (Milk Of Magnesia Liq) 30 ml DAILY PRN PO 06/17/16 07:30 (Narcan Inj) 0.4 mg UNSCH PRN IV 06/17/16 07:30 (Benadryl Inj) 25 mg Q6H PRN IV 06/17/16 07:30 (Coumadin) 7.5 mg DAILY@16 PO 06/17/16 16:00 06/19/16 15:03 (Pill Splitter) 1 ea UNSCH PRN OTHER 06/17/16 07:30 Vital Signs / I&O Vital Signs Date Time Temp Pulse Resp B/P Pulse Ox O2 Delivery O2 Flow Rate FiO2 06/20/16 12:20 95.5 100 16 99/62 94 06/20/16 09:08 Simple Mask 5.00 06/20/16 08:02 98.1 98 20 107/66 94 06/20/16 05:31 96 Simple Mask 5.00 06/20/16 04:00 97.0 109 16 99/61 96 06/20/16 00:00 98.7 98 16 103/58 95 06/19/16 22:08 125/65 06/19/16 19:50 Simple Mask 5.00 06/19/16 19:28 Nasal Cannula 5.00 06/19/16 18:50 97.4 115 18 113/64 96 06/19/16 16:25 92 Simple Mask 5.00 06/19/16 16:00 97.6 99 24 110/58 95 06/19/16 14:25 96 Nasal Cannula 6.00 I/O 06/19/16 06/19/16 06/19/16 06/20/16 06/20/16 06/20/16 07:00 15:00 23:00 07:00 15:00 23:00 Intake Total 480 ml 600 ml 240 ml 240 ml Output Total 640 ml 800 ml 150 ml 500 ml Balance -160 ml -200 ml 90 ml -260 ml Intake Oral 480 ml 600 ml 240 ml 240 ml Output Urine Total 640 ml 800 ml 150 ml 500 ml # Bowel Movements 0 0 0 Physical Exam GENERAL: NAD, AAOx3 SKIN: Warm and dry. HEAD: Atraumatic. Normocephalic. EYES: Pupils equal and round. No scleral icterus. No injection or drainage. ENT: No nasal bleeding or discharge. Mucous membranes pink and moist. NECK: Trachea midline. No JVD. CARDIOVASCULAR: Irregularly irregular RESPIRATORY: No accessory muscle use. Relatively clear to auscultation GASTROINTESTINAL: Abdomen soft, non-tender, nondistended. Hepatic and splenic margins not palpable. MUSCULOSKELETAL: Extremities without clubbing, cyanosis, or edema. No obvious deformities. Left hip surgery NEUROLOGICAL: Awake and alert. No obvious cranial nerve deficits. Motor grossly within normal limits. Five out of 5 muscle strength in the arms and legs. Normal speech. PSYCHIATRIC: Appropriate mood and affect; insight and judgment normal. Laboratory Laboratory Tests Test 06/20/16 06:35 White Blood Count 11.5 TH/MM3 Red Blood Count 4.09 MIL/MM3 Hemoglobin 13.4 GM/DL Hematocrit 39.1 % Mean Corpuscular Volume 95.5 FL Mean Corpuscular Hemoglobin 32.7 PG Mean Corpuscular Hemoglobin 34.2 % Concent Red Cell Distribution Width 13.8 % Platelet Count 143 TH/MM3 Mean Platelet Volume 9.1 FL Prothrombin Time 12.0 SEC Prothromb Time International 1.1 RATIO Ratio Assessment and Plan Problem List: (1) Status post hip surgery (2) Atrial fibrillation (3) Primary localized osteoarthrosis, pelvic region and thigh Assessment and Plan 1) Atrial fibrillation rates controlled 2) BNP low, does not clinically look like heart failure 3) Continue current medical management from a cardiology standpoint 4) ?atelectasis, only using the IS a few times a day... needs to be worked by PT and use IS multiple times per day Noble Lopez DO Jun 20, 2016 14:01
[2016-06-20] MEDS: ENOXAPARIN SODIUM 40 MG/0.4 ML SYRINGE SQ SCH (14:14)
[2016-06-20] MEDS: WARFARIN SOD 7.5 MG TAB PO SCH (17:55)
[2016-06-20] MEDS: ATORVASTATIN 20 MG TAB PO SCH (20:07)
[2016-06-21] VITALS (7 sets, daily range): BP systolic 109–126; BP diastolic 65–77; PULSE 60–104; RESP 16–21; TEMP 96–97.1; O2SAT 91–98
[2016-06-21] MEDS: ACETAMINOPHEN/HYDROcodone 325 MG/7.5 MG TAB PO PRN ×3 (03:12→17:31)
[2016-06-21] MEDS: RESP: ALBUTEROL 2.5 MG/IPRATROPIUM 0.5 MG NEB (SCH) NEB ×3 (03:45→16:36)
[2016-06-21] MEDS: SODIUM CHLORIDE 0.9% FLUSH 5 ML FLUSH IVF SCH ×2 (09:00→20:14)
[2016-06-21] MEDS: MULTIVITAMINS/MINERALS THERAPEUTIC TAB PO SCH ×2 (09:42→20:13)
[2016-06-21] MEDS: DIGOXIN 0.125 MG TAB PO SCH (09:42)
[2016-06-21] MEDS: DOCUSATE SODIUM 100 MG CAP PO SCH ×2 (09:42→20:13)
[2016-06-21] MEDS: METOPROLOL TARTRATE 50 MG TAB PO SCH ×2 (09:43→20:14)
[2016-06-21] MEDS: LISINOPRIL 5 MG TAB PO SCH (09:43)
--- NOTE | 2016-06-21 10:33 | PD.CARD.PN ---
Subjective Subjective Remarks No chest pain, no shortness of breath Objective Medications Current Medications Medications (Trade) Dose Ordered Sig/Bianka Route Start Time Stop Time Status Last Admin (Lipitor) 20 mg HS PO 06/17/16 21:00 06/20/16 20:07 (Lanoxin) 0.125 mg DAILY PO 06/17/16 09:00 06/21/16 09:42 (Prinivil) 2.5 mg DAILY PO 06/17/16 09:00 06/21/16 09:43 (Lopressor) 50 mg BID PO 06/17/16 09:00 06/21/16 09:43 (NS Flush) 2 ml UNSCH PRN IVF 06/17/16 07:30 (NS Flush) 2 ml BID IVF 06/17/16 09:00 06/21/16 09:00 (Lovenox Inj) 40 mg Q24H SQ 06/18/16 11:45 06/27/16 11:46 06/20/16 14:14 (Morphine Inj) 3 mg Q3H PRN IV PUSH 06/17/16 07:30 ([place]okes 7.5-325 Mg) 1 tab Q4H PRN PO 06/17/16 07:30 06/21/16 09:51 ([place]okes 7.5-325 Mg) 2 tab Q4H PRN PO 06/17/16 07:30 (Theragran M Tab) 1 tab BID PO 06/18/16 21:00 08/17/16 20:59 06/21/16 09:42 (Zofran Inj) 4 mg Q6H PRN IVP 06/17/16 07:30 (Colace) 100 mg BID PO 06/18/16 21:00 06/21/16 09:42 (Mag-Al Plus Susp Liq) 30 ml Q6H PRN PO 06/17/16 07:30 (Ambien) 5 mg HS PRN PO 06/17/16 07:30 (Dulcolax Supp) 10 mg DAILY PRN IN 06/17/16 07:30 (Milk Of Magnesia Liq) 30 ml DAILY PRN PO 06/17/16 07:30 (Narcan Inj) 0.4 mg UNSCH PRN IV 06/17/16 07:30 (Benadryl Inj) 25 mg Q6H PRN IV 06/17/16 07:30 (Coumadin) 7.5 mg DAILY@16 PO 06/17/16 16:00 06/20/16 17:55 (Pill Splitter) 1 ea UNSCH PRN OTHER 06/17/16 07:30 Vital Signs / I&O Vital Signs Date Time Temp Pulse Resp B/P Pulse Ox O2 Delivery O2 Flow Rate FiO2 06/21/16 09:12 96 Nasal Cannula 5.00 06/21/16 08:00 96.0 60 18 126/74 94 06/21/16 03:47 91 Nasal Cannula 5.00 06/21/16 00:00 96.4 101 16 116/65 97 06/20/16 21:42 93 Nasal Cannula 5.00 06/20/16 20:00 97.4 113 17 115/68 96 06/20/16 12:20 95.5 100 16 99/62 94 I/O 06/20/16 06/20/16 06/20/16 06/21/16 06/21/16 06/21/16 07:00 15:00 23:00 07:00 15:00 23:00 Intake Total 240 ml 240 ml 240 ml Output Total 500 ml 500 ml 500 ml Balance -260 ml -260 ml -260 ml Intake Oral 240 ml 240 ml 240 ml Output Urine Total 500 ml 500 ml 500 ml # Bowel Movements 0 0 0 Physical Exam GENERAL: NAD, AAOx3 SKIN: Warm and dry. HEAD: Atraumatic. Normocephalic. EYES: Pupils equal and round. No scleral icterus. No injection or drainage. ENT: No nasal bleeding or discharge. Mucous membranes pink and moist. NECK: Trachea midline. No JVD. CARDIOVASCULAR: Irregularly irregular RESPIRATORY: No accessory muscle use. Relatively clear to auscultation GASTROINTESTINAL: Abdomen soft, non-tender, nondistended. Hepatic and splenic margins not palpable. MUSCULOSKELETAL: Extremities without clubbing, cyanosis, or edema. No obvious deformities. Left hip surgery NEUROLOGICAL: Awake and alert. No obvious cranial nerve deficits. Motor grossly within normal limits. Five out of 5 muscle strength in the arms and legs. Normal speech. PSYCHIATRIC: Appropriate mood and affect; insight and judgment normal. Assessment and Plan Problem List: (1) Status post hip surgery (2) Atrial fibrillation (3) Primary localized osteoarthrosis, pelvic region and thigh Assessment and Plan 1) Atrial fibrillation rates controlled 2) BNP low, does not clinically look like heart failure 3) Continue current medical management from a cardiology standpoint 4) ?atelectasis, only using the IS a few times a day... needs to be worked by PT and use IS multiple times per day 5) Will see PRN, call with questions Noble Lopez DO Jun 21, 2016 10:33
[2016-06-21] MEDS: ENOXAPARIN SODIUM 40 MG/0.4 ML SYRINGE SQ SCH (11:45)
--- NOTE | 2016-06-21 14:50 | HHI.PR ---
Subjective Remarks Follow up for hypoxia, afib. The patient has no acute complaints. Denies any chest pain, palpitations, or shortness of breath while resting in bed. He does have some exertional dyspnea when working with PT. Still requiring oxygen, O2 sat currently 96% on 5L NC. Objective Vitals Vital Signs Date Time Temp Pulse Resp B/P Pulse Ox O2 Delivery O2 Flow Rate FiO2 06/21/16 09:12 96 Nasal Cannula 5.00 06/21/16 09:12 96 Nasal Cannula 5.00 06/21/16 08:00 96.0 60 18 126/74 94 06/21/16 03:47 91 Nasal Cannula 5.00 06/21/16 00:00 96.4 101 16 116/65 97 06/20/16 21:42 93 Nasal Cannula 5.00 06/20/16 20:00 97.4 113 17 115/68 96 I/O 06/20/16 06/20/16 06/20/16 06/21/16 06/21/16 06/21/16 07:00 15:00 23:00 07:00 15:00 23:00 Intake Total 240 ml 240 ml 240 ml Output Total 500 ml 500 ml 500 ml Balance -260 ml -260 ml -260 ml Intake Oral 240 ml 240 ml 240 ml Output Urine Total 500 ml 500 ml 500 ml # Bowel Movements 0 0 0 Result Diagram: 06/20/16 0635 06/19/16 0306 Imaging Last Impressions Chest X-Ray 06/18/16 1456 Signed Impressions: Service Date/Time: Saturday, June 18, 2016 14:54 - CONCLUSION: Bibasilar areas of consolidation or atelectasis with a suspected mild left effusion. Yvon Pop MD Hip and Pelvis X-Ray 06/17/16 0717 Signed Impressions: Service Date/Time: Friday, June 17, 2016 12:42 - CONCLUSION: Left hip prosthesis in good position. Adrian Morales Jr., MD Objective Remarks GENERAL: Well-nourished, well-developed middle aged male patient in [facility]. SKIN: Warm and dry. No rash. HEENT: Normocephalic. Atraumatic. Pupils equal and round. No scleral icterus. No injection or drainage. Mucous membranes pink and moist. NECK: Supple. Trachea midline. CARDIOVASCULAR: Irregular rate and rhythm. S1, S2 noted. No murmur appreciated. RESPIRATORY: No accessory muscle use. Clear to auscultation. Breath sounds equal bilaterally. GASTROINTESTINAL: Abdomen soft, non-tender, nondistended. Normoactive bowel sounds x4. MUSCULOSKELETAL: No obvious deformities. Extremities without clubbing, cyanosis , or edema. Left Hip surgical dressing CDI. NEUROLOGICAL: Awake and alert. No obvious cranial nerve deficits. Motor grossly within normal limits. Normal speech. PSYCHIATRIC: Appropriate mood and affect; insight and judgment normal. Procedures Left total hip arthroplasty Medications and IVs Current Medications Medications (Trade) Dose Ordered Sig/Bianka Route Start Time Stop Time Status Last Admin (Lipitor) 20 mg HS PO 06/17/16 21:00 06/20/16 20:07 (Lanoxin) 0.125 mg DAILY PO 06/17/16 09:00 06/21/16 09:42 (Prinivil) 2.5 mg DAILY PO 06/17/16 09:00 06/21/16 09:43 (Lopressor) 50 mg BID PO 06/17/16 09:00 06/21/16 09:43 (NS Flush) 2 ml UNSCH PRN IVF 06/17/16 07:30 (NS Flush) 2 ml BID IVF 06/17/16 09:00 06/21/16 09:00 (Lovenox Inj) 40 mg Q24H SQ 06/18/16 11:45 06/27/16 11:46 06/20/16 14:14 (Morphine Inj) 3 mg Q3H PRN IV PUSH 06/17/16 07:30 ([place] 7.5-325 Mg) 1 tab Q4H PRN PO 06/17/16 07:30 06/21/16 09:51 ([place] 7.5-325 Mg) 2 tab Q4H PRN PO 06/17/16 07:30 (Theragran M Tab) 1 tab BID PO 06/18/16 21:00 08/17/16 20:59 06/21/16 09:42 (Zofran Inj) 4 mg Q6H PRN IVP 06/17/16 07:30 (Colace) 100 mg BID PO 06/18/16 21:00 06/21/16 09:42 (Mag-Al Plus Susp Liq) 30 ml Q6H PRN PO 06/17/16 07:30 (Ambien) 5 mg HS PRN PO 06/17/16 07:30 (Dulcolax Supp) 10 mg DAILY PRN OK 06/17/16 07:30 (Milk Of Kim Liq) 30 ml DAILY PRN PO 06/17/16 07:30 (Narcan Inj) 0.4 mg UNSCH PRN IV 06/17/16 07:30 (Benadryl Inj) 25 mg Q6H PRN IV 06/17/16 07:30 (Coumadin) 7.5 mg DAILY@16 PO 06/17/16 16:00 06/20/16 17:55 (Pill Splitter) 1 ea UNSCH PRN OTHER 06/17/16 07:30 A/P Assessment and Plan 70 y/o man s/p left leg orthopedic procedure (BASILIO) with SVT and SOB S/P Left total hip arthroplasty: 06/17/16. Perioperative management per orthopedics including pain control, activity, rehabilitation. A. fib with RVR: Cardiology consulted. Continue digoxin, metoprolol. Warfarin resumed, INR still subtherapeutic. HR improved. Hypoxia: Chronic respiratory failure on home oxygen prn. Secondary to GATO per patient. Currently requiring 5 L NC, wean as tolerated. Scheduled nebs. Possibly exacerbated by pleural effusion as below. Incentive spirometry. Ez Pap and Acapella. Still requiring O2, tachycardic, will check D-dimer, if positive, will start full strength Lovenox and check CT-PA. 1800hrs: D-dimer elevated. Discussed with RN. Stat CT-PA ordered. Give full strength lovenox until PE ruled out. Pleural effusion: CXR showed bibasilar areas of consolidation or atelectasis with suspected mild left effusion. Cardiology doubts CHF. BNP low at 68. Given IV Lasix, given additional. Maintain negative fluid balance. Hyperglycemia: Mild. Hgb A1c 5.8 DVT prophylaxis: Coumadin with Lovenox bridge Discussed with Dr. Padilla. Ирина Pike PA-C Jun 21, 2016 14:50
--- NOTE | 2016-06-21 15:35 | PD.ORT.PN ---
Subjective Post Op Day #: 4 Subjective Remarks Patient is OOB in chair with c/o mild left thigh pain. Patient denies CP or SOB. Patient states he was able to ambulate a short distance today with minimal SOB. Objective Vitals Vital Signs Date Time Temp Pulse Resp B/P Pulse Ox O2 Delivery O2 Flow Rate FiO2 06/21/16 12:00 96.7 93 18 117/66 94 06/21/16 09:12 96 Nasal Cannula 5.00 06/21/16 09:12 96 Nasal Cannula 5.00 06/21/16 08:00 96.0 60 18 126/74 94 06/21/16 03:47 91 Nasal Cannula 5.00 06/21/16 00:00 96.4 101 16 116/65 97 06/20/16 21:42 93 Nasal Cannula 5.00 06/20/16 20:00 97.4 113 17 115/68 96 I/O 06/20/16 06/20/16 06/20/16 06/21/16 06/21/16 06/21/16 07:00 15:00 23:00 07:00 15:00 23:00 Intake Total 240 ml 240 ml 240 ml Output Total 500 ml 500 ml 500 ml Balance -260 ml -260 ml -260 ml Intake Oral 240 ml 240 ml 240 ml Output Urine Total 500 ml 500 ml 500 ml # Bowel Movements 0 0 0 Result Diagram: 06/20/16 0635 06/19/16 0306 Imaging Last 24 hours Impressions Chest X-Ray 06/18/16 1456 Signed Impressions: Service Date/Time: Saturday, June 18, 2016 14:54 - CONCLUSION: Bibasilar areas of consolidation or atelectasis with a suspected mild left effusion. Yvon Pop MD Procedures Left BASILIO (posterior approach) Objective Remarks OOB, nad NC [address] dressing c/d/i neg homans, calf soft and nontender + nvi, + SILT Assessment & Plan Ortho Post Op Day #: 4 Problem List: Assessment and Plan POD #4: s/p L BASILIO posterior approach wbat daily dressing changes lovenox bridge with coumadin. d/c lovenox when INR greater than 1.7 Patient on 5 L NC. Patient OOB today with PT. Continue to work on improving stamina and independence d/c planning to snf ([facility]) once medically cleared. Stable orthopaedically. f/up dr. bright 2 weeks Juan Manzano Jun 21, 2016 15:35
[2016-06-21] MEDS: WARFARIN SOD 7.5 MG TAB PO SCH (16:23)
[2016-06-21] MEDS: MAGNESIUM HYDROXIDE SUSP 30 ML CUP PO PRN (17:31)
[2016-06-21] MEDS ORDERED: IOHEXOL 350 MG/ML 10 ML VIAL (for RAD DIAG) IV ONE (19:43)
--- NOTE | 2016-06-21 19:57 | RADRPT ---
EXAM DATE/TIME: 06/21/2016 19:40 [facility] COMPARISON: CHEST SINGLE AP, June 18, 2016, 14:54. INDICATIONS : Hypoxia and shortness of breath. IV CONTRAST: 75 cc Omnipaque 350 (iohexol) IV RADIATION DOSE: 23.16 CTDIvol (mGy) MEDICAL HISTORY : Congestive hearrt failure. Carcinoma, prostate. SURGICAL HISTORY : Left hip replacement. ENCOUNTER: Subsequent ACUITY: 1 day PAIN SCALE: 0/10 LOCATION: chest TECHNIQUE: Volumetric scanning of the chest was performed using a pulmonary embolism protocol MIP images were re constructed. Using automated exposure control and adjustment of the mA and/or kV according to patien t size, radiation dose was kept as low as reasonably achievable to obtain optimal diagnostic quality images. FINDINGS: PULMONARY ARTERIES: No filling defects are seen in the pulmonary arteries through the segmental level. LUNGS: There is no pneumothorax . There is consolidation in the right lower lobe. There is apparent atelecta sis in the left lung base. No concerning pulmonary nodule is visualized. PLEURAE: There is no pleural thickening or pleural effusion. MEDIASTINUM: There is good visualization of the great vessels of the middle mediastinum. No evidence of mediastin al or hilar adenopathy/mass. MUSCULOSKELETAL: Within normal limits for patient age. MISCELLANEOUS: The visualized upper abdominal organs demonstrate no acute abnormality. CONCLUSION: 1. Consolidated infiltrate in the right lower lobe most consistent with pneumonia. 2. No evidence of pulmonary embolism. Ignacio Lilly MD on June 21, 2016 at 19:54 Board Certified Radiologist. This report was verified electronically.
[2016-06-21] MEDS ORDERED: ENOXAPARIN SODIUM 120 MG/0.8 ML SYRINGE SQ SCH (20:00)
[2016-06-21] MEDS: ATORVASTATIN 20 MG TAB PO SCH (20:14)
[2016-06-21] MEDS: LEVOFLOXACIN 750 MG PREMIX INJ 150 ML IV SCH (22:00)
[2016-06-22] VITALS (8 sets, daily range): BP systolic 100–142; BP diastolic 62–84; PULSE 74–112; RESP 18–21; TEMP 96.1–98.3; O2SAT 93–100
[2016-06-22] MEDS: MAGNESIUM HYDROXIDE SUSP 30 ML CUP PO PRN ×2 (04:18→10:48)
[2016-06-22] MEDS: ACETAMINOPHEN/HYDROcodone 325 MG/7.5 MG TAB PO PRN ×4 (05:31→21:28)
[2016-06-22 07:34] LABS: INTERNATIONAL NORMALIZED RATIO 1.3 RATIO; PROTHROMBIN TIME - PATIENT 14.1 SEC (9.8-11.6)
--- NOTE | 2016-06-22 08:13 | PD.ORT.PN ---
Subjective Subjective Remarks patient doing fine with left hip discharge was held due to respiratory and cardiac issues Objective Vitals Vital Signs Date Time Temp Pulse Resp B/P Pulse Ox O2 Delivery O2 Flow Rate FiO2 06/22/16 07:57 Nasal Cannula 4.00 Humidified 06/22/16 00:35 97.1 90 21 110/67 94 06/21/16 21:00 Nasal Cannula 4.00 06/21/16 20:20 97.1 103 21 110/69 93 06/21/16 16:00 96.1 104 19 109/77 98 06/21/16 12:00 96.7 93 18 117/66 94 06/21/16 09:12 96 Nasal Cannula 5.00 06/21/16 09:12 96 Nasal Cannula 5.00 I/O 06/21/16 06/21/16 06/21/16 06/22/16 06/22/16 06/22/16 07:00 15:00 23:00 07:00 15:00 23:00 Intake Total 240 ml 840 ml 240 ml Output Total 500 ml 1070 ml 850 ml Balance -260 ml -230 ml -610 ml Intake Oral 240 ml 840 ml 240 ml Output Urine Total 500 ml 1070 ml 850 ml # Bowel Movements 0 0 0 Result Diagram: 06/20/16 0635 06/19/16 0306 Other Results Laboratory Tests Test 06/22/16 06:07 Prothrombin Time 14.1 SEC (9.8-11.6) Prothromb Time International 1.3 RATIO Ratio Imaging Last 24 hours Impressions Chest X-Ray 06/18/16 1456 Signed Impressions: Service Date/Time: Saturday, June 18, 2016 14:54 - CONCLUSION: Bibasilar areas of consolidation or atelectasis with a suspected mild left effusion. Yvon Pop MD Procedures Left BASILIO (posterior approach) Objective Remarks also seen by Dr. Maverick Clemente dressing c/d/i neg homans, calf soft and nontender + nvi, + SILT Assessment & Plan Assessment and Plan POD #5: s/p L BASILIO posterior approach wbat daily dressing changes lovenox bridge with coumadin. d/c lovenox when INR greater than 1.7 patient was neg for PE, did show up possible pneumonia, medical had ordered higher dose of Lovenox which is not needed due to no PE, resuming normal 40 mg q24. d/c planning to snf ([facility]) once medically cleared. Stable orthopaedically. f/up dr. bright 2 weeks Jolie Villela Jun 22, 2016 08:12
--- NOTE | 2016-06-22 10:05 | HHI.PR ---
Subjective Remarks Follow-up for hypoxia Still short of breath, occasional cough, afebrile. No chest pain, no diarrhea Objective Vitals Vital Signs Date Time Temp Pulse Resp B/P Pulse Ox O2 Delivery O2 Flow Rate FiO2 06/22/16 07:57 Nasal Cannula 4.00 Humidified 06/22/16 07:13 97.3 108 18 132/69 94 06/22/16 00:35 97.1 90 21 110/67 94 06/21/16 21:00 Nasal Cannula 4.00 06/21/16 20:20 97.1 103 21 110/69 93 06/21/16 16:00 96.1 104 19 109/77 98 06/21/16 12:00 96.7 93 18 117/66 94 I/O 06/21/16 06/21/16 06/21/16 06/22/16 06/22/16 06/22/16 07:00 15:00 23:00 07:00 15:00 23:00 Intake Total 240 ml 840 ml 240 ml Output Total 500 ml 1070 ml 850 ml Balance -260 ml -230 ml -610 ml Intake Oral 240 ml 840 ml 240 ml Output Urine Total 500 ml 1070 ml 850 ml # Bowel Movements 0 0 0 Result Diagram: 06/20/16 0635 06/19/16 [address] Angiography 06/21/16 0000 Signed Impressions: Service Date/Time: Tuesday, June 21, 2016 19:40 - CONCLUSION: 1. Consolidated infiltrate in the right lower lobe most consistent with pneumonia. 2. No evidence of pulmonary embolism. Ignacio Lilly MD Chest X-Ray 06/18/16 1456 Signed Impressions: Service Date/Time: Saturday, June 18, 2016 14:54 - CONCLUSION: Bibasilar areas of consolidation or atelectasis with a suspected mild left effusion. Yvon Pop MD Hip and Pelvis X-Ray 06/17/16 0717 Signed Impressions: Service Date/Time: Friday, June 17, 2016 12:42 - CONCLUSION: Left hip prosthesis in good position. Adrian Morales Jr., MD Objective Remarks GENERAL: Well-nourished, well-developed middle aged male patient in [facility]. SKIN: Warm and dry. No rash. HEENT: Normocephalic. Atraumatic. Pupils equal and round. No scleral icterus. NECK: Supple. Trachea midline. CARDIOVASCULAR: Irregular rate and rhythm. S1, S2 noted. No murmur appreciated. RESPIRATORY: Decreased breath sounds on the right. GASTROINTESTINAL: Abdomen soft, non-tender, nondistended. Normoactive bowel sounds x4. MUSCULOSKELETAL: No obvious deformities. Extremities without clubbing, cyanosis , or edema. Left Hip surgical dressing CDI. NEUROLOGICAL: Awake and alert. No obvious cranial nerve deficits. Motor grossly within normal limits. Normal speech. Procedures Left total hip arthroplasty A/P Assessment and Plan 70 y/o man s/p left leg orthopedic procedure (BASILIO) with SVT and SOB S/P Left total hip arthroplasty: 06/17/16. Perioperative management per orthopedics including pain control, activity, rehabilitation. A. fib with RVR: Cardiology consulted. Continue digoxin, metoprolol. Warfarin resumed, INR still subtherapeutic. HR improved. Continue Coumadin. Hypoxia: Chronic respiratory failure on home oxygen prn. Secondary to GATO per patient. Currently requiring 5 L NC, wean as tolerated. Scheduled nebs. Possibly exacerbated by pleural effusion as below. Incentive spirometry. Ez Pap and Acapella. Still requiring O2, tachycardic, d-dimer high, CTA negative for PE but positive for right lower lobe pneumonia, start Levaquin. Pleural effusion: CXR showed bibasilar areas of consolidation or atelectasis with suspected mild left effusion. Cardiology doubts CHF. BNP low at 68. Given IV Lasix, given additional. Maintain negative fluid balance. Hyperglycemia: Mild. Hgb A1c 5.8 DVT prophylaxis: Coumadin with Lovenox bridge Stewart Padilla MD Jun 22, 2016 10:05 Stewart Padilla MD Jun 22, 2016 10:05
[2016-06-22] MEDS: DOCUSATE SODIUM 100 MG CAP PO SCH ×2 (10:48→21:00)
[2016-06-22] MEDS: MULTIVITAMINS/MINERALS THERAPEUTIC TAB PO SCH ×2 (10:48→21:28)
[2016-06-22] MEDS: METOPROLOL TARTRATE 50 MG TAB PO SCH ×2 (10:48→21:28)
[2016-06-22] MEDS: LISINOPRIL 5 MG TAB PO SCH (10:48)
[2016-06-22] MEDS: DIGOXIN 0.125 MG TAB PO SCH (10:48)
[2016-06-22] MEDS: SODIUM CHLORIDE 0.9% FLUSH 5 ML FLUSH IVF SCH ×2 (10:50→21:29)
[2016-06-22] MEDS: ENOXAPARIN SODIUM 40 MG/0.4 ML SYRINGE SQ SCH (11:14)
[2016-06-22] MEDS: WARFARIN SOD 7.5 MG TAB PO SCH (16:50)
[2016-06-22] MEDS: ATORVASTATIN 20 MG TAB PO SCH (21:29)
[2016-06-22] MEDS: LEVOFLOXACIN 750 MG PREMIX INJ 150 ML IV SCH (21:30)
[2016-06-23] MEDS: ACETAMINOPHEN/HYDROcodone 325 MG/7.5 MG TAB PO PRN ×5 (06:17→21:14)
[2016-06-23 06:46] LABS: AUTOMATED NEUTROPHIL # 6.5 TH/MM3 (1.8-7.7); BASOPHIL % 0.2 % (0.0-2.0); EOSINOPHIL # 0.3 TH/MM3 (0-0.4); EOSINOPHIL % 3.4 % (0.0-4.0); HEMATOCRIT 36.3 % (39.0-51.0); HEMO FLAGS DIFF FINAL; LYMPH % 11.1 % (9.0-44.0); MEAN CELL VOLUME 94.3 FL (80.0-100.0); MONO % 10.2 % (0.0-8.0); NEUT % 75.1 % (16.0-70.0); PLATELET COUNT 170 TH/MM3 (150-450); RED BLOOD COUNT 3.85 MIL/MM3 (4.50-5.90); RED CELL DISTRIBUTION WIDTH 13.7 % (11.6-17.2); WHITE BLOOD COUNT 8.6 TH/MM3 (4.0-11.0)
[2016-06-23 07:03] LABS: BICARBONATE 32.6 MEQ/L (21.0-32.0); POTASSIUM 4.3 MEQ/L (3.5-5.1)
[2016-06-23 07:08] LABS: INTERNATIONAL NORMALIZED RATIO 1.5 RATIO; PROTHROMBIN TIME - PATIENT 17.3 SEC (9.8-11.6)
[2016-06-23 07:18] VITALS: BP 120/69; PULSE 103; RESP 17; TEMP 96.7; O2SAT 96
--- NOTE | 2016-06-23 08:39 | PD.ORT.PN ---
Subjective Subjective Remarks patient doing fine with left hip discharge has been held due to respiratory and cardiac issues has no complaints this morning, still on 4L oxygen NC Objective Vitals Vital Signs Date Time Temp Pulse Resp B/P Pulse Ox O2 Delivery O2 Flow Rate FiO2 06/23/16 07:45 Nasal Cannula 4.00 Humidified 06/22/16 23:55 97.1 112 21 142/84 100 06/22/16 20:30 96.1 89 21 130/65 97 06/22/16 20:27 Nasal Cannula 4.00 Humidified 06/22/16 16:10 96.1 99 18 100/62 93 06/22/16 16:02 93 Nasal Cannula 4.00 06/22/16 11:28 98.3 74 18 111/66 93 06/22/16 11:20 95 Nasal Cannula 4.00 I/O 06/22/16 06/22/16 06/22/16 06/23/16 06/23/16 06/23/16 07:00 15:00 23:00 07:00 15:00 23:00 Intake Total 240 ml 720 ml 240 ml 240 ml Output Total 850 ml Balance -610 ml 720 ml 240 ml 240 ml Intake Oral 240 ml 720 ml 240 ml 240 ml Output Urine Total 850 ml # Voids 3 2 2 # Bowel Movements 0 1 1 1 Result Diagram: 06/23/16 0557 06/23/16 0557 Other Results Laboratory Tests Test 06/23/16 05:57 Prothrombin Time 17.3 SEC (9.8-11.6) Prothromb Time International 1.5 RATIO Ratio Imaging Last 24 hours Impressions Chest X-Ray 06/18/16 1456 Signed Impressions: Service Date/Time: Saturday, June 18, 2016 14:54 - CONCLUSION: Bibasilar areas of consolidation or atelectasis with a suspected mild left effusion. Yvon Pop MD Procedures Left BASILIO (posterior approach) Objective Remarks also seen by Dr. Maverick Clemente left hip dressing c/d/i neg homans, calf soft and nontender + nvi, + SILT Assessment & Plan Assessment and Plan POD #6 s/p L BASILIO posterior approach wbat daily dressing changes lovenox bridge with coumadin. d/c lovenox when INR greater than 1.7, INR 1.5 today patient was neg for PE, did show up possible pneumonia, medical had ordered higher dose of Lovenox which is not needed due to no PE, resumed normal 40 mg q24. also A fib with RVR, cardiology was consulted d/c planning to snf ([facility]) once medically cleared. Stable orthopaedically. f/up dr. bright 2 weeks Jolie Villela Jun 23, 2016 08:39
[2016-06-23] MEDS: MULTIVITAMINS/MINERALS THERAPEUTIC TAB PO SCH ×2 (09:50→21:13)
[2016-06-23] MEDS: METOPROLOL TARTRATE 50 MG TAB PO SCH ×2 (09:50→21:13)
[2016-06-23] MEDS: LISINOPRIL 5 MG TAB PO SCH (09:50)
[2016-06-23] MEDS: DOCUSATE SODIUM 100 MG CAP PO SCH ×2 (09:51→21:13)
[2016-06-23] MEDS: DIGOXIN 0.125 MG TAB PO SCH (09:51)
[2016-06-23] MEDS: SODIUM CHLORIDE 0.9% FLUSH 5 ML FLUSH IVF SCH (09:51)
--- NOTE | 2016-06-23 11:14 | HHI.PR ---
Subjective Remarks Follow-up for pneumonia Breathing is about the same, cough nonproductive, a febrile. Patient however feels weaker today, mildly tachycardic, no nausea or vomiting. Leukocytosis resolved. Objective Vitals Vital Signs Date Time Temp Pulse Resp B/P Pulse Ox O2 Delivery O2 Flow Rate FiO2 06/23/16 07:45 Nasal Cannula 4.00 Humidified 06/23/16 07:18 96.7 103 17 120/69 96 06/22/16 23:55 97.1 112 21 142/84 100 06/22/16 20:30 96.1 89 21 130/65 97 06/22/16 20:27 Nasal Cannula 4.00 Humidified 06/22/16 16:10 96.1 99 18 100/62 93 06/22/16 16:02 93 Nasal Cannula 4.00 06/22/16 11:28 98.3 74 18 111/66 93 06/22/16 11:20 95 Nasal Cannula 4.00 I/O 06/22/16 06/22/16 06/22/16 06/23/16 06/23/16 06/23/16 07:00 15:00 23:00 07:00 15:00 23:00 Intake Total 240 ml 720 ml 240 ml 240 ml Output Total 850 ml Balance -610 ml 720 ml 240 ml 240 ml Intake Oral 240 ml 720 ml 240 ml 240 ml Output Urine Total 850 ml # Voids 3 2 2 # Bowel Movements 0 1 1 1 Result Diagram: 06/23/16 0557 06/23/16 0557 Objective Remarks GENERAL: Well-nourished, well-developed middle aged male patient in [facility]. SKIN: Warm and dry. No rash. HEENT: Normocephalic. Atraumatic. Pupils equal and round. No scleral icterus. NECK: Supple. Trachea midline. CARDIOVASCULAR: Irregular rate and rhythm. S1, S2 noted. No murmur appreciated. RESPIRATORY: Decreased breath sounds on the right. No wheezing or crackles GASTROINTESTINAL: Abdomen soft, non-tender, nondistended. Normoactive bowel sounds x4. MUSCULOSKELETAL: No obvious deformities. Extremities without clubbing, cyanosis , or edema. Left Hip surgical dressing CDI. NEUROLOGICAL: Awake and alert. No obvious cranial nerve deficits. Motor grossly within normal limits. Normal speech. Procedures Left total hip arthroplasty A/P Assessment and Plan 70 y/o man s/p left leg orthopedic procedure (BASILIO) with SVT and SOB S/P Left total hip arthroplasty: 06/17/16. Perioperative management per orthopedics including pain control, activity, rehabilitation. A. fib with RVR: Cardiology consulted. Continue digoxin, metoprolol. Warfarin resumed, INR still subtherapeutic. HR improved. Continue Coumadin. Increase metoprolol if still uncontrolled. Hypoxia: Chronic respiratory failure on home oxygen prn. Secondary to GATO per patient. Currently requiring 5 L NC, wean as tolerated. Scheduled nebs. Possibly exacerbated by pleural effusion as below. Incentive spirometry. Ez Pap and Acapella. Still requiring O2, tachycardic, d-dimer high, CTA negative for PE but positive for right lower lobe pneumonia, continue Levaquin, since not getting better, recheck chest x-ray today, check CBC. On 4 L of oxygen Pleural effusion: CXR showed bibasilar areas of consolidation or atelectasis with suspected mild left effusion. Cardiology doubts CHF. BNP low at 68. Given IV Lasix, given additional. Maintain negative fluid balance. We'll give another dose of Lasix, recheck BMP tomorrow Hyperglycemia: Mild. Hgb A1c 5.8 DVT prophylaxis: Coumadin with Lovenox bridge Stewart Padilla MD Jun 23, 2016 11:14
[2016-06-23 11:19] VITALS: BP 112/61; PULSE 70; RESP 17; TEMP 97.1; O2SAT 94
--- NOTE | 2016-06-23 11:56 | RADRPT ---
EXAM DATE/TIME: 06/23/2016 11:42 [facility] COMPARISON: CHEST SINGLE AP, June 18, 2016, 14:54. CT PULMONARY ANGIOGRAM, June 21, 2016, 19:40. INDICATIONS : Evaluate Pleural effusion MEDICAL HISTORY : None. SURGICAL HISTORY : None. ENCOUNTER: Subsequent ACUITY: 4 - 6 days PAIN SCORE: 0/10 LOCATION: chest FINDINGS: PA and lateral views of the chest demonstrate bibasilar densities more confluent right lower lobe. Th e cardiomediastinal contours are unremarkable. Osseous structures are intact. CONCLUSION: Bibasilar infiltrates greater in the right lower lobe. No pleural effusion identified. Patrice Lee MD on June 23, 2016 at 11:54 Board Certified Radiologist. This report was verified electronically.
[2016-06-23] MEDS ORDERED: FUROSEMIDE 40 MG/4 ML VIAL IV PUSH ONE (12:00)
[2016-06-23] MEDS: ENOXAPARIN SODIUM 40 MG/0.4 ML SYRINGE SQ SCH (12:24)
[2016-06-23 12:34] VITALS: O2SAT 95
[2016-06-23 16:00] VITALS: BP 122/75; PULSE 84; RESP 17; TEMP 97.4; O2SAT 96
[2016-06-23] MEDS: WARFARIN SOD 7.5 MG TAB PO SCH (16:25)
[2016-06-23 20:40] VITALS: BP 137/82; PULSE 77; RESP 20; TEMP 96.2; O2SAT 96
[2016-06-23] MEDS: ATORVASTATIN 20 MG TAB PO SCH (21:13)
[2016-06-23] MEDS: LEVOFLOXACIN 750 MG PREMIX INJ 150 ML IV SCH (21:14)
[2016-06-23 23:15] VITALS: BP 116/76; PULSE 88; RESP 19; TEMP 96.3; O2SAT 92
[2016-06-24] MEDS: ACETAMINOPHEN/HYDROcodone 325 MG/7.5 MG TAB PO PRN ×3 (03:56→21:21)
[2016-06-24 05:29] LABS: AUTOMATED NEUTROPHIL # 5.8 TH/MM3 (1.8-7.7); BASOPHIL % 0.3 % (0.0-2.0); EOSINOPHIL # 0.3 TH/MM3 (0-0.4); EOSINOPHIL % 3.9 % (0.0-4.0); HEMATOCRIT 36.2 % (39.0-51.0); HEMO FLAGS DIFF FINAL; LYMPH % 14.7 % (9.0-44.0); LYMPHOCYTE # 1.2 TH/MM3 (1.0-4.8); MEAN CELL VOLUME 94.3 FL (80.0-100.0); MEAN CORPUSCULAR HEMOGLOBIN 31.7 PG (27.0-34.0); MEAN CORPUSCULAR HGB CONC 33.6 % (32.0-36.0); MONO % 10.2 % (0.0-8.0); NEUT % 70.9 % (16.0-70.0); PLATELET COUNT 174 TH/MM3 (150-450); RED BLOOD COUNT 3.83 MIL/MM3 (4.50-5.90); RED CELL DISTRIBUTION WIDTH 13.6 % (11.6-17.2); WHITE BLOOD COUNT 8.2 TH/MM3 (4.0-11.0)
[2016-06-24 05:55] LABS: PROTHROMBIN TIME - PATIENT 22.2 SEC (9.8-11.6)
[2016-06-24 05:59] LABS: BICARBONATE 32.2 MEQ/L (21.0-32.0); POTASSIUM 4.2 MEQ/L (3.5-5.1)
[2016-06-24 07:03] VITALS: BP 124/72; PULSE 92; RESP 18; TEMP 97.3; O2SAT 93
[2016-06-24] MEDS: DOCUSATE SODIUM 100 MG CAP PO SCH ×2 (09:09→19:50)
[2016-06-24] MEDS: DIGOXIN 0.125 MG TAB PO SCH (09:09)
[2016-06-24] MEDS: MULTIVITAMINS/MINERALS THERAPEUTIC TAB PO SCH ×2 (09:09→19:50)
[2016-06-24] MEDS: LISINOPRIL 5 MG TAB PO SCH (09:09)
[2016-06-24] MEDS: METOPROLOL TARTRATE 50 MG TAB PO SCH ×2 (09:09→19:50)
[2016-06-24 11:12] VITALS: BP 102/64; PULSE 101; RESP 18; TEMP 96.4; O2SAT 92
[2016-06-24] MEDS: ENOXAPARIN SODIUM 40 MG/0.4 ML SYRINGE SQ SCH (14:03)
--- NOTE | 2016-06-24 14:49 | HHI.PR ---
Subjective Remarks Follow-up for pneumonia and hypoxia. Breathing is about the same. The patient states that he coughed up some clear sputum earlier. The patient states that he 's been urinating normal overnight. He states he urinated a lot after his first dose of Lasix, but it hasn't really made him urinate much since then. He denies any leg swelling. He is down to 4 L O2. His ground intelligence officer is Dr. Mcginnis. He wants go to rehabilitation as soon as possible. Objective Vitals Vital Signs Date Time Temp Pulse Resp B/P Pulse Ox O2 Delivery O2 Flow Rate FiO2 06/24/16 11:12 96.4 101 18 102/64 92 06/24/16 08:40 Nasal Cannula 4.00 98 Humidified 06/24/16 07:03 97.3 92 18 124/72 93 06/23/16 23:15 96.3 88 19 116/76 92 06/23/16 20:40 96.2 77 20 137/82 96 06/23/16 19:43 Nasal Cannula 4.00 Humidified 06/23/16 16:00 97.4 84 17 122/75 96 I/O 06/23/16 06/23/16 06/23/16 06/24/16 06/24/16 06/24/16 07:00 15:00 23:00 07:00 15:00 23:00 Intake Total 240 ml 720 ml 480 ml 480 ml Balance 240 ml 720 ml 480 ml 480 ml Intake Oral 240 ml 720 ml 480 ml 480 ml # Voids 2 4 1 3 # Bowel Movements 1 2 0 0 Result Diagram: 06/24/16 0455 06/24/16 0455 Imaging Last Impressions Chest X-Ray 06/23/16 0000 Signed Impressions: Service Date/Time: Thursday, June 23, 2016 11:42 - CONCLUSION: Bibasilar infiltrates greater in the right lower lobe. No pleural effusion identified. Patrice Lee MD CT Angiography 06/21/16 0000 Signed Impressions: Service Date/Time: Tuesday, June 21, 2016 19:40 - CONCLUSION: 1. Consolidated infiltrate in the right lower lobe most consistent with pneumonia. 2. No evidence of pulmonary embolism. Ignacio Lilly MD Hip and Pelvis X-Ray 06/17/16 0717 Signed Impressions: Service Date/Time: Friday, June 17, 2016 12:42 - CONCLUSION: Left hip prosthesis in good position. Adrian Morales Jr., MD Objective Remarks GENERAL: Well-developed well-nourished. In no acute distress. SKIN: Warm and dry. No lesions noted. HEENT: Normocephalic. Pupils equal and round. Mucous membranes pink and moist. CARDIOVASCULAR: Regular rate and rhythm. No murmur appreciated. RESPIRATORY: No accessory muscle use. Clear to auscultation bilaterally. GASTROINTESTINAL: Abdomen soft, non-tender, nondistended. Bowel sounds x4. MUSCULOSKELETAL: No obvious deformities. No clubbing or cyanosis. No edema. NEUROLOGICAL: Awake and alert. No focal neurological deficits. Moves upper and lower extremities spontaneously. Normal speech. PSYCHIATRIC: Appropriate mood and affect; insight and judgment normal. Procedures Left total hip arthroplasty A/P Assessment and Plan 70 y/o man s/p left leg orthopedic procedure (BASILIO) with SVT and SOB S/P Left total hip arthroplasty: 06/17/16. Perioperative management per orthopedics including pain control, activity, rehabilitation. A. fib with RVR: Cardiology consulted. Continue digoxin, metoprolol. Warfarin resumed, INR now therapeutic, pharmacy consult to monitor. HR improved. Consider increase metoprolol if still uncontrolled. Hypoxia: Chronic respiratory failure on home oxygen prn. Secondary to GATO per patient. Currently requiring 4 L NC, wean as tolerated. Scheduled nebs. Possibly exacerbated by pleural effusion as below. Incentive spirometry. Ez Pap and Acapella. Still requiring O2, tachycardic, d-dimer high, CTA negative for PE but positive for right lower lobe pneumonia, continue Levaquin. Repeat chest x-ray 06/23 personally reviewed, shows improvement in pleural effusion, but persistent bibasilar infiltrates. Check urinary antigens. Consult patient' s ground intelligence officer. Pleural effusion: CXR showed bibasilar areas of consolidation or atelectasis with suspected mild left effusion. Cardiology doubts CHF. BNP low at 68. Given IV Lasix for 3 doses, mild improvement initially, but none since. Chest x -ray improving. Monitor fluid balance. Hyperglycemia: Mild. Hgb A1c 5.8 DVT prophylaxis: Coumadin. Discontinue Lovenox bridge Discharge Planning [facility] at [facility] Jun 24, 2016 14:49
[2016-06-24 16:25] VITALS: BP 131/70; PULSE 85; RESP 18; TEMP 96.1; O2SAT 95
[2016-06-24] MEDS: ATORVASTATIN 20 MG TAB PO SCH (19:50)
[2016-06-24] MEDS: SODIUM CHLORIDE 0.9% FLUSH 5 ML FLUSH IVF SCH ×2 (19:50→21:21)
[2016-06-24 20:00] VITALS: BP 112/69; PULSE 109; RESP 17; TEMP 97; O2SAT 95
[2016-06-24] MEDS: LEVOFLOXACIN 750 MG PREMIX INJ 150 ML IV SCH (21:21)
[2016-06-25] VITALS: BP 99/66; PULSE 95; RESP 16; TEMP 96.5; O2SAT 93
[2016-06-25 04:00] VITALS: BP 121/76; PULSE 103; RESP 16; TEMP 97.4; O2SAT 95
[2016-06-25 06:20] LABS: INTERNATIONAL NORMALIZED RATIO 1.8 RATIO; PROTHROMBIN TIME - PATIENT 20.9 SEC (9.8-11.6)
--- NOTE | 2016-06-25 06:53 | MB ---
cc: ANGIE PICHARDO DATE OF CONSULTATION 06/24/2016 REQUESTING PHYSICIAN [facility] REASON FOR CONSULTATION Evaluation for lung infiltrate and shortness of breath. HISTORY OF PRESENT ILLNESS Mr. Tate is a pleasant 70-year-old male with a history of COPD and obstructive sleep apnea. He also has history of tachycardia. The patient underwent elective left hip arthroplasty. After that, the patient developed tachycardia. He did not have any chest pain. He did not have fevers or night sweats. He has shortness of breath. He was sent for a CT of his chest. It does not show any pulmonary embolism. It shows that he has a right lower lobe consolidation. He feels now much better. He has not been using C-PAP here, but uses a C-PAP machine at home. LAB DATA His lab evaluation revealed a WBC count of 8.2, hemoglobin 12.2, hematocrit 36.2, MCV 94, platelet count 174. Sodium 140, potassium 4.2, chloride 101, CO2 32.2, BUN 1.18, INR is 2.0. PAST MEDICAL HISTORY Significant for a history of: 1. COPD 2. Obstructive sleep apnea 3. Hypertension 4. Hyperlipidemia 5. History of meniscus tear in the knee. 6. Spinal fusion 7. History of chronic atrial fibrillation. MEDICATIONS He is takin. Levaquin 750 mg a day. 2. Lipitor 20 mg a day. 3. Colace 100 mg twice a day. 4. Digoxin 0.125 mg 5. Lisinopril 2.5 mg a day. 6. Metoprolol 50 mg twice a day. 7. Hydrocodone for pain. ALLERGIES NO KNOWN DRUG ALLERGIES. SOCIAL HISTORY He is . He has a remote history of smoking, but is using cigar off and on. He drinks socially. 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 FAMILY HISTORY He is . REVIEW OF SYSTEMS Normally she is up, around and active. No malignancy. No DVT or pulmonary embolism. No seizure or epilepsy. PHYSICAL EXAM The patient is a well-built, well-nourished male not in acute disease. VITAL SIGNS: Blood pressure 130/70, heart rate 85, respiration 18, temperature 96.1. HEENT: Examination shows pupils are equal and reactive. Nasal mucosa normal. NECK: Supple. JVP not raised. LUNGS: Equal bilateral, no rhonchi. CARDIOVASCULAR: Normal. ABDOMEN: Benign. EXTREMITIES: No edema. IMPRESSION 1. Right lower lobe pneumonia. Clinically he is stable. 2. COPD 3. Obstructive sleep apnea 4. Chronic atrial fibrillation/flutter 5. Hypertension 6. Status post left hip arthroplasty PLAN Discussed with the patient we will continue the antibiotics, supplement his oxygen, advised him to use C-PAP machine. I offered him to use a C-PAP machine here, but he wants to wait until he goes home and starts using his own machine. The patient is being planned for transfer to the rehab center. Further treatment will dependent on the course in the hospital. Thank you [facility] for this consultation. MD OSMANI Almonte/ISSA /7:06 PM /6:33 AM MTDVasile
[2016-06-25 08:00] VITALS: BP 121/73; PULSE 97; RESP 18; TEMP 97.8; O2SAT 95
--- NOTE | 2016-06-25 08:45 | PD.ORT.PN ---
Subjective Post Op Day #: 8 Subjective Remarks pain under control. currently denies cp and sob. Objective Vitals Vital Signs Date Time Temp Pulse Resp B/P Pulse Ox O2 Delivery O2 Flow Rate FiO2 06/25/16 07:24 Nasal Cannula 4.00 Humidified 06/25/16 04:00 97.4 103 16 121/76 95 06/25/16 00:00 96.5 95 16 99/66 93 06/24/16 20:00 97.0 109 17 112/69 95 06/24/16 16:25 96.1 85 18 131/70 95 06/24/16 15:00 20 06/24/16 11:12 96.4 101 18 102/64 92 I/O 06/24/16 06/24/16 06/24/16 06/25/16 06/25/16 06/25/16 07:00 15:00 23:00 07:00 15:00 23:00 Intake Total 480 ml 960 ml 240 ml 415 ml Output Total 350 ml 250 ml Balance 480 ml 960 ml -110 ml 165 ml Intake Oral 480 ml 960 ml 240 ml 240 ml IV Total 175 ml Output Urine Total 350 ml 250 ml # Voids 3 2 # Bowel Movements 0 1 0 0 Result Diagram: 06/24/16 0455 06/24/16 0455 Other Results Laboratory Tests Test 06/25/16 05:35 Prothrombin Time 20.9 SEC (9.8-11.6) Prothromb Time International 1.8 RATIO Ratio Imaging Last 24 hours Impressions Chest X-Ray 06/18/16 1456 Signed Impressions: Service Date/Time: Saturday, June 18, 2016 14:54 - CONCLUSION: Bibasilar areas of consolidation or atelectasis with a suspected mild left effusion. Yvon Pop MD Procedures Left BASILIO (posterior approach) Objective Remarks left hip dressing c/d/i neg homans, calf soft and nontender + nvi, + SILT Assessment & Plan Ortho Post Op Day #: 8 Problem List: Assessment and Plan POD #8 s/p L BASILIO posterior approach wbat daily dressing changes coumadin patient was neg for PE, did show up possible pneumonia also A fib with RVR, cardiology was consulted d/c planning to snf ([facility]) once medically cleared. Stable orthopaedically. f/up dr. bright 2 Brandan Barksdale Jun 25, 2016 08:45
[2016-06-25] MEDS: DIGOXIN 0.125 MG TAB PO SCH (09:03)
[2016-06-25] MEDS: ACETAMINOPHEN/HYDROcodone 325 MG/7.5 MG TAB PO PRN ×3 (09:03→17:48)
[2016-06-25] MEDS: METOPROLOL TARTRATE 50 MG TAB PO SCH (09:03)
[2016-06-25] MEDS: LISINOPRIL 5 MG TAB PO SCH (09:03)
[2016-06-25] MEDS: DOCUSATE SODIUM 100 MG CAP PO SCH (09:03)
[2016-06-25] MEDS: MULTIVITAMINS/MINERALS THERAPEUTIC TAB PO SCH (09:03)
[2016-06-25] MEDS: SODIUM CHLORIDE 0.9% FLUSH 5 ML FLUSH IVF SCH (09:04)
--- NOTE | 2016-06-25 09:30 | MB ---
cc: RAHEL MCGINNIS M.D. DATE OF CONSULTATION 06/24/2016 REASON FOR CONSULTATION Obstructive sleep apnea. HISTORY OF PRESENT ILLNESS Mr. Abdul is a 70-year-old male who has a history of obstructive sleep apnea treated in the past; however, his machine has not been functioning properly and his mass does not fit. He was in the process of obtaining new equipment. He has presently undergone hip surgery and is recovering from same, has evidence of underlying pneumonia, seen by Dr. Hewitt for same. The patient denies history of fever, chills, hemoptysis, has no history of TB or industrial exposure. PAST MEDICAL HISTORY 1. Obstructive sleep apnea. 2. COPD. 3. Hypertension. 4. Hyperlipidemia. 5. Previous knee and back surgery. 6. Atrial fibrillation. MEDICATIONS Kindly review EMR for same. ALLERGIES None known to medications. SYSTEMS REVIEW A 12-point review of systems as per the HPI and Past History, otherwise negative. SOCIAL HISTORY Does not smoke, drinks alcohol socially. Did smoke in the past. 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 PHYSICAL EXAMINATION GENERAL: The patient is alert. VITAL SIGNS: Temperature 98, pulse 90, respirations 18, blood pressure 120/70, oxygen saturation 93% on oxygen via nasal cannula. HEENT: Exam unremarkable. Eyes without icterus. Neck: Without adenopathy or thyroid enlargement. Central trachea. CHEST: No dullness to percussion. Clear to auscultation. CARDIAC EXAM: PMI distant. S1-S2 audible. No murmur, nor rub. ABDOMEN: Lax. Bowel sounds audible. EXTREMITIES: No clubbing, cyanosis or edema. LABORATORY DATA White count 8000, hemoglobin 12, hematocrit 94, platelets 174,000. Sodium 141, potassium 4.2, BUN 8, creatinine 33. INR 1.8. CT ANGIOGRAM 06/21/2016 - Right lower lobe pneumonia and no PE. IMPRESSION 1. Obstructive sleep apnea. 2. Status post hip surgery. 3. COPD. 4. Atrial fibrillation. 5. Hypertension. 6. Hyperlipidemia. 7. Obesity. PLAN The patient's C-PAP equipment at present in nonfunctional. He is going to be discharged today to rehab. I will attempt to obtain new C-PAP requirement or at least adjust his present department as needed. A new mask will be provided. We will attempt to provide him one in the hospital and then he can take it with him to rehab where he can use it on a nightly basis which is advisable at this time. I do thank you for asking me to partake in Mr. Tate care. Sincerely, Rahel Mcginnis MD WWW/MATTHEW /8:34 AM /9:18 AM
[2016-06-25] MEDS ORDERED: LEVA750T PO (11:01)
--- NOTE | 2016-06-25 11:14 | HHI.PR ---
Subjective Remarks Follow-up for pneumonia Currently on 1 L of oxygen, no fever, cough is a lot better, feels good, not short of breath. Pain is controlled. Objective Vitals Vital Signs Date Time Temp Pulse Resp B/P Pulse Ox O2 Delivery O2 Flow Rate FiO2 06/25/16 08:00 97.8 97 18 121/73 95 06/25/16 07:24 Nasal Cannula 4.00 Humidified 06/25/16 04:00 97.4 103 16 121/76 95 06/25/16 00:00 96.5 95 16 99/66 93 06/24/16 20:00 97.0 109 17 112/69 95 06/24/16 16:25 96.1 85 18 131/70 95 06/24/16 15:00 20 I/O 06/24/16 06/24/16 06/24/16 06/25/16 06/25/16 06/25/16 07:00 15:00 23:00 07:00 15:00 23:00 Intake Total 480 ml 960 ml 240 ml 415 ml Output Total 350 ml 250 ml Balance 480 ml 960 ml -110 ml 165 ml Intake Oral 480 ml 960 ml 240 ml 240 ml IV Total 175 ml Output Urine Total 350 ml 250 ml # Voids 3 2 # Bowel Movements 0 1 0 0 Result Diagram: 06/24/16 0455 06/24/16 0455 Objective Remarks GENERAL: Well-nourished, well-developed middle aged male patient in [facility]. SKIN: Warm and dry. No rash. HEENT: Normocephalic. Atraumatic. Pupils equal and round. No scleral icterus. NECK: Supple. Trachea midline. CARDIOVASCULAR: Irregular rate and rhythm. S1, S2 noted. No murmur appreciated. RESPIRATORY: Breath sounds better on the right base, no wheezing or crackles. GASTROINTESTINAL: Abdomen soft, non-tender, nondistended. Normoactive bowel sounds x4. MUSCULOSKELETAL: No obvious deformities. Extremities without clubbing, cyanosis , or edema. Left Hip surgical dressing CDI. NEUROLOGICAL: Awake and alert. No obvious cranial nerve deficits. Motor grossly within normal limits. Normal speech. Procedures Left total hip arthroplasty A/P Assessment and Plan 70 y/o man s/p left leg orthopedic procedure (BASILIO) with SVT and SOB S/P Left total hip arthroplasty: 3/13/17. Perioperative management per orthopedics including pain control, activity, rehabilitation. A. fib with RVR: Cardiology consulted. Continue digoxin, metoprolol. Warfarin resumed, INR now therapeutic, pharmacy consult to monitor. HR improved. Consider increase metoprolol if still uncontrolled. Hypoxia: Chronic respiratory failure on home oxygen prn. Secondary to GATO per patient. Currently requiring 4 L NC, wean as tolerated. Scheduled nebs. Possibly exacerbated by pleural effusion as below. Incentive spirometry. Ez Pap and Acapella. Still requiring O2, tachycardic, d-dimer high, CTA negative for PE but positive for right lower lobe pneumonia, continue Levaquin. Repeat chest x-ray 06/23 personally reviewed, shows improvement in pleural effusion, but persistent bibasilar infiltrates. Patient better, and 1 L of oxygen, cleared for discharge, finish Levaquin for 4 more days. Pleural effusion: CXR showed bibasilar areas of consolidation or atelectasis with suspected mild left effusion. Cardiology doubts CHF. BNP low at 68. Given IV Lasix for 3 doses, mild improvement initially, but none since. Chest x -ray improving. Monitor fluid balance. Hyperglycemia: Mild. Hgb A1c 5.8 DVT prophylaxis: Coumadin. Discontinue Lovenox bridge Stewart Padilla MD Jun 25, 2016 11:14
[2016-06-25 12:00] VITALS: BP 111/83; PULSE 112; RESP 18; TEMP 97; O2SAT 94
[2016-06-25] MEDS: WARFARIN SOD 7.5 MG TAB PO SCH (15:13)
[2016-06-25 16:00] VITALS: BP 105/69; PULSE 103; RESP 18; TEMP 97; O2SAT 92
--- NOTE | 2016-07-16 14:17 | MD ---
cc: REA ESCAMILLA ADMISSION DATE: 06/17/2016 DISCHARGE DATE: 06/25/2016 ADMISSION DIAGNOSIS Severe degenerative osteoarthritis left hip. DISCHARGE DIAGNOSIS Severe degenerative osteoarthritis left hip. HISTORY OF PRESENT ILLNESS Mr. Tate is a 70-year-old male who presented to the [facility] for evaluation by Dr. Rea Escamilla regarding severe and progressive left hip pain. The patient states the pain has been bothering him for greater than one year duration. He describes it as a constant, severe aching sensation. He notes he has no alleviating factors at this point in time, although he has tried medications, assistive devices, physical therapy, home exercise program, weight loss attempts, all without relief of symptoms. He does have x-ray evidence of severe degenerative osteoarthritis of left hip. While in the office the patient was counseled on his diagnosis and treatment options. The risks, benefits and indications were all discussed. The patient did elect to proceed with surgical intervention to include a left total hip arthroplasty. DATE OF SURGERY 06/17/2016. PROCEDURE PERFORMED Left total hip arthroplasty posterior approach. POSTOP After surgery the patient was admitted to [facility] where he received appropriate medical management, pain control, DVT prophylaxis as well as physical therapy. DISCHARGE Once being discharged from the hospital the patient is cleared to go to a senior care facility. He is in stable condition. DISCHARGE INSTRUCTIONS He may weight-bear as tolerated. He is to receive daily dressing changes and has been instructed on appropriate wound care management. DISCHARGE MEDICATIONS He has been provided prescriptions for pain control as well as DVT prophylaxis medication. FOLLOWUP He has also been provided with a follow-up appointment to see Dr. Rea Escamilla in the office approximately 2 weeks from the date of surgery. The patient has asked appropriate questions which have been answered. The patient has been discharged. Dictated by Rea So PA-C MD NURY Garcia/MATTHEW /8:52 AM /2:17 PM
== END 2016-06-25 20:26 | DRG 469 ==
LOC: HSDI 06-17 06:51 → N03A 06-17 17:32 → N07B 06-19 07:28 → N06B 06-19 18:24
PROVIDERS: ADMIT Orthopaedic Surgery Sports Medicine; ATTEND Orthopaedic Surgery Sports Medicine
PROC: 0SRB04A Replacement of Left Hip Joint with Ceramic on Polyethylene Synthetic Substitute, Uncemented, Open Approach (ICD-10-PCS; principal; 2016-06-17 10:10)
DX: M16.12 Unilateral primary osteoarthritis, left hip (principal); J18.9 Pneumonia, unspecified organism; J96.11 Chronic respiratory failure with hypoxia; Z99.81 Dependence on supplemental oxygen; I47.1 Supraventricular tachycardia; I48.2 Chronic atrial fibrillation; I48.92 Unspecified atrial flutter; J44.0 Chronic obstructive pulmonary disease with (acute) lower respiratory infection; J98.11 Atelectasis; I10 Essential (primary) hypertension; E78.5 Hyperlipidemia, unspecified; E66.9 Obesity, unspecified; G47.33 Obstructive sleep apnea (adult) (pediatric); R73.9 Hyperglycemia, unspecified; Z68.34 Body mass index [BMI] 34.0-34.9, adult; Z72.0 Tobacco use; Z85.46 Personal history of malignant neoplasm of prostate; Z98.1 Arthrodesis status
CPT/HCPCS: 71010; 71020; 71275; 73502; 80048; 80053; 83036; 83605; 83880; 84100; 84484; 85014; 85018; 85025; 85027; 85379; 85610; 86850; 86900; 86901; 93005; 94150; 94640; 94664; 94667; 94668; C1776; C9290; J0131; J0690; J1100; J1160; J1170; J1580; J1650; J1940; J1956; J2250; J2270; J2370; J2405; J2710; J3010; J3370; J7030; J7040; J7050; J7120; L1830; Q9967

== ENCOUNTER 2016-07-06 12:10 | Inpatient (IN) | payer OTHER, MEDICARE ==
[~2016-07-06] VITALS: Ht 182.9 cm; Wt 108.6 kg
[2016-07-06] VITALS (10 sets, daily range): BP systolic 87–149; BP diastolic 57–97; PULSE 70–107; RESP 18–20; TEMP 96–98.2; O2SAT 94–96
[~2016-07-06 12:10] MED LIST: ATOR20TA15 PO; CENTTAB8 PO; COMMODE 3-IN-11 MIS; DIGO0.127 PO; HYDR-3288 PO; IPRASOL NEB; LEVA750T PO; LISI2.5T3 PO; METO50TA PO; VITA250C3 CHEW; WALKER WHEELS/F1 MIS; WARF-58 PO; WARF-60 PO
[2016-07-06] MEDS ORDERED: SODIUM CHLOR 0.9% 1000 ML INJ 1,000 ML IV ONE (12:25)
[2016-07-06] MEDS ORDERED: SODIUM CHLORIDE 0.9% FLUSH 10 ML FLUSH IVF PRN (12:30)
--- NOTE | 2016-07-06 12:34 | PD ---
HPI Chief Complaint: Syncope/Near-Syncope Time Seen by Provider: 12:25 Travel History International Travel<30 days: No Contact w/Intl Traveler<30days: No Traveled to known affect area: No History of Present Illness HPI 70-year-old male with history of atrial flutter, currently in rehabilitation facility status post left hip replacement complicated by pneumonia. He presents back to the ER today for near syncopal episode. He states that he has not been feeling well since he has been in rehabilitation, and has been having at least 1 week history of general weakness and lightheadedness, was trying to transfer to a standing position today when he had a near syncopal episode. He denies any fevers, chest pains, shortness of breath, or any other symptoms. He denies loss of consciousness today. He states that he felt worse the wall and caught himself. He was found to have low blood pressure on initial evaluation by EMS. He states that he has not been feeling well and has had poor appetite although he denies vomiting or fevers. Modifying Factors: None Associated Signs & Symptoms: Near syncopal episode, hypotension, general weakness and lightheadedness Risk Factors: Elderly, recent pneumonia and ORIF PFSH Past Medical History Arthritis: Yes Asthma: No Heart Rhythm Problems: Yes Cancer: Yes (Prostate) Cardiovascular Problems: Yes High Cholesterol: No Chemotherapy: Yes (2011) Chest Pain: No Congestive Heart Failure: Yes COPD: No Cerebrovascular Accident: No Endocrine: No Genitourinary: No Hepatitis: No Hiatal Hernia: No Hypertension: Yes Immune Disorder: No Musculoskeletal: No Neurologic: No Psychiatric: No Reproductive: No Respiratory: Yes Migraines: No Radiation Therapy: Yes Seizures: No Sleep Apnea: Yes Past Surgical History Abdominal Surgery: No AICD: No Body Medical Devices: SEEDS IMPLANTED FOR PROSTATE CANCER, SCREWS IN CERVICAL Cardiac Surgery: No Ear Surgery: No Endocrine Surgery: No Eye Surgery: No Genitourinary Surgery: No Gynecologic Surgery: No Insulin Pump: No Joint Replacement: Yes (R knee and L hip) Oral Surgery: No Pacemaker: No Thoracic Surgery: No Social History Alcohol Use: No Tobacco Use: No Substance Use: No Allergies-Medications (Allergen,Severity, Reaction): Coded Allergies: No Known Allergies (Verified , 07/06/16) Reported Meds & Prescriptions Reported Meds & Active Scripts Active Duoneb (Ipratropium-Albuterol Neb) 0.5-2.5 Mg/3 Ml Neb 1 Ampule NEB Q6HR NEB Walker with Front Wheels (Device) 1 Mis Mis 1 Ea .ROUTE DIRECTED [place] (Hydrocodone-Acetaminophen) 7.5-325 mg Tab 1-2 Tab PO Q6H PRN Reported Miralax Powder (Polyethylene Glycol 3350 Powder) 17 Gm Powd 17 Gm PO DAILY Mix and dissolve one measuring cap-ful (17 grams) in water or juice. Gas-X (Simethicone) 80 Mg Chew 80 Mg CHEW QID PRN Keflex (Cephalexin) 500 Mg Cap 500 Mg PO Q6H Zofran Odt (Ondansetron Odt) 4 Mg Tab 4 Mg SL Q6HR PRN Nystatin Liq 100,000 unit/ml Susp 5 Ml SWISH-SWAL QID Omeprazole 20 Mg Tab 20 Mg PO DAILY Warfarin 5 Mg Tab 5 Mg PO DAILY Vitamin C (Ascorbic Acid) 250 Mg Chew Unknown Dose CHEW DAILY Centrum Adults (Multiple Vitamins W/ Minerals) 1 Tab 1 Tab PO DAILY Lisinopril 2.5 Mg Tab 2.5 Mg PO DAILY Digox (Digoxin) 0.125 Mg Tab 0.125 Mg PO DAILY Warfarin 3 Mg Tab 3 Mg PO MO,WE,FR Warfarin 6 Mg Tab 6 Mg PO DAILY Metoprolol Tartrate 50 Mg Tab 50 Mg PO BID Atorvastatin (Atorvastatin Calcium) 20 Mg Tab 20 Mg PO HS Review of Systems Except as stated in HPI: all other systems reviewed are Neg Physical Exam Narrative GENERAL: Tired appearing elderly white male patient currently in mild distress. Awake and oriented 3. SKIN: Focused skin assessment warm/dry. Left hip wound clean, dry, intact and well-healed. No surrounding erythema. HEAD: Atraumatic. Normocephalic. EYES: Pupils equal and round. No scleral icterus. No injection or drainage. ENT: No nasal bleeding or discharge. Mucous membranes pink and moist. NECK: Trachea midline. No JVD. CARDIOVASCULAR: Regular rate and rhythm. No murmur appreciated. RESPIRATORY: No accessory muscle use. Clear to auscultation. Breath sounds equal bilaterally. GASTROINTESTINAL: Abdomen soft, non-tender, nondistended. Hepatic and splenic margins not palpable. MUSCULOSKELETAL: No obvious deformities. No clubbing. No cyanosis. No edema. NEUROLOGICAL: Awake and alert. No obvious cranial nerve deficits. Motor grossly within normal limits. Normal speech. PSYCHIATRIC: Appropriate mood and affect; insight and judgment normal. Data Data Last Documented VS Vital Signs Date Time Temp Pulse Resp B/P Pulse Ox O2 Delivery O2 Flow Rate FiO2 07/06/16 14:00 75 18 127/66 95 Nasal Cannula 2 07/06/16 12:16 98.2 Orders Electrocardiogram (07/06/16 12:25) Complete Blood Count With Diff (07/06/16 12:25) Comprehensive Metabolic Panel (07/06/16 12:25) Magnesium (Mg) (07/06/16 12:25) B-Type Natriuretic Peptide (07/06/16 12:25) Ckmb (Isoenzyme) Profile (07/06/16 12:25) Troponin I (07/06/16 12:25) Act Partial Throm Time (Ptt) (07/06/16 12:25) Prothrombin Time / Inr (Pt) (07/06/16 12:25) Urinalysis - C+S If Indicated (07/06/16 12:25) Chest, Single Ap (07/06/16 12:25) Ecg Monitoring (07/06/16 12:25) Iv Access Insert/Monitor (07/06/16 12:25) Oximetry (07/06/16 12:25) Sodium Chloride 0.9% Flush (Ns Flush) (07/06/16 12:30) Sodium Chlor 0.9% 1000 Ml Inj (Ns 1000 M (07/06/16 12:25) CKMB (07/06/16 12:45) CKMB% (07/06/16 12:45) Acetamin-Hydrocod 325-5 Mg ([place] 5-325 (07/06/16 14:30) Admit Order (Ed Use Only) (07/06/16 14:45) Admit To Inpatient (07/06/16 14:45) Code Status (07/06/16 14:45) Vital Signs (Adult) Q4H (07/06/16 14:45) Activity Bed Rest With Brp (07/06/16 14:45) Hard Metals Engraver Hand / Telemetry .CONTINUOUS (07/06/16 14:45) Intake + Output JEVON.QSHIFT (07/06/16 14:45) Diet Heart Healthy (07/06/16 Dinner) Basic Metabolic Panel (Bmp) (07/07/16 06:00) Complete Blood Count With Diff (07/07/16 06:00) Scd Bilateral/Knee High JEVON.QSHIFT (07/06/16 14:45) Sodium Chlor 0.9% 1000 Ml Inj (Ns 1000 M (07/06/16 14:45) Heparin Inj (Heparin Inj) (07/06/16 22:00) Atorvastatin (Lipitor) (07/06/16 21:00) Cephalexin (Keflex) (07/06/16 14:45) Albuterol-Ipratropium Neb (Duoneb Neb) (07/06/16 16:00) Nystatin Liq (Mycostatin Liq) (07/06/16 18:00) Simethicone Chew (Mylicon Chew) (07/06/16 14:45) Warfarin (Coumadin) (07/08/16 14:45) Warfarin (Coumadin) (07/06/16 14:45) (Nf) Omeprazole (07/07/16 09:00) Labs Laboratory Tests Test 07/06/16 07/06/16 12:45 13:59 White Blood Count 8.8 TH/MM3 Red Blood Count 3.98 MIL/MM3 Hemoglobin 13.1 GM/DL Hematocrit 37.0 % Mean Corpuscular Volume 93.0 FL Mean Corpuscular Hemoglobin 32.9 PG Mean Corpuscular Hemoglobin 35.3 % Concent Red Cell Distribution Width 13.2 % Platelet Count 378 TH/MM3 Mean Platelet Volume 8.5 FL Neutrophils (%) (Auto) 78.9 % Lymphocytes (%) (Auto) 10.4 % Monocytes (%) (Auto) 6.8 % Eosinophils (%) (Auto) 3.4 % Basophils (%) (Auto) 0.5 % Neutrophils # (Auto) 6.9 TH/MM3 Lymphocytes # (Auto) 0.9 TH/MM3 Monocytes # (Auto) 0.6 TH/MM3 Eosinophils # (Auto) 0.3 TH/MM3 Basophils # (Auto) 0.0 TH/MM3 CBC Comment DIFF FINAL Differential Comment Prothrombin Time 22.0 SEC Prothromb Time International 1.9 RATIO Ratio Activated Partial 35.2 SEC Thromboplast Time Sodium Level 138 MEQ/L Potassium Level 4.7 MEQ/L Chloride Level 101 MEQ/L Carbon Dioxide Level 29.4 MEQ/L Anion Gap 8 MEQ/L Blood Urea Nitrogen 43 MG/DL Creatinine 1.58 MG/DL Estimat Glomerular Filtration 44 ML/MIN Rate Random Glucose 111 MG/DL Calcium Level 8.6 MG/DL Magnesium Level 2.5 MG/DL Total Bilirubin 0.8 MG/DL Aspartate Amino Transf 50 U/L (AST/SGOT) Alanine Aminotransferase 67 U/L (ALT/SGPT) Alkaline Phosphatase 207 U/L Total Creatine Kinase 104 U/L Creatine Kinase MB 1.6 NG/ML Troponin I LESS THAN 0.02 NG/ML B-Type Natriuretic Peptide 9 PG/ML Total Protein 6.9 GM/DL Albumin 3.1 GM/DL Urine Color YELLOW Urine Turbidity CLEAR Urine pH 6.0 Urine Specific [place] 1.008 Urine Protein NEG mg/dL Urine Glucose (UA) NEG mg/dL Urine Ketones NEG mg/dL Urine Occult Blood NEG Urine Nitrite NEG Urine Bilirubin NEG Urine Urobilinogen LESS THAN 2.0 MG/DL Urine Leukocyte Esterase NEG Urine WBC 1 /hpf Urine Squamous Epithelial <1 /hpf Cells Urine Bacteria RARE /hpf Urine Hyaline Casts 2 /lpf Microscopic Urinalysis Comment CULT NOT INDICATED MDM Medical Decision Making Medical Screen Exam Complete: Yes Emergency Medical Condition: Yes Medical Record Reviewed: Yes Interpretation(s) EKG reveals atrial flutter with a 4:1 ventricular response. Ventricular rate 72 bpm. No signs of acute ST-T changes. Laboratory Tests Test 07/06/16 07/06/16 12:45 13:59 Red Blood Count 3.98 MIL/MM3 (4.50-5.90) Hematocrit 37.0 % (39.0-51.0) Neutrophils (%) (Auto) 78.9 % (16.0-70.0) Lymphocytes # (Auto) 0.9 TH/MM3 (1.0-4.8) Prothrombin Time 22.0 SEC (9.8-11.6) Activated Partial 35.2 SEC Thromboplast Time (24.3-30.1) Blood Urea Nitrogen 43 MG/DL (7-18) Creatinine 1.58 MG/DL (0.60-1.30) Estimat Glomerular Filtration 44 ML/MIN (>89) Rate Random Glucose 111 MG/DL (74-106) Aspartate Amino Transf 50 U/L (15-37) (AST/SGOT) Alkaline Phosphatase 207 U/L (45-117) Troponin I LESS THAN 0.02 NG/ML (0.02-0.05) Albumin 3.1 GM/DL (3.4-5.0) Urine Bacteria RARE /hpf (NONE) Differential Diagnosis Near-syncopal episode, general weakness, lightheadedness, hypotension dehydration versus metabolic issues versus dysrhythmias versus sepsis Narrative Course Lab work shows significant BUN and creatinine elevation indicative of underlying dehydration. IV fluids had been given in the ER with blood pressure response. At this point, my plan would be to admit the patient for further evaluation and treatment. Case is discussed with Dr. Padilla for admission. Procedures EKG Prior to Arrival: Yes Diagnosis Primary Impression: Atrial fibrillation Additional Impression: Acute renal failure (ARF) Admitting Information Admitting Physician Requests: it Adeola Carlton MD Jul 06, 2016 12:34
[2016-07-06 13:01] LABS: AUTOMATED NEUTROPHIL # 6.9 TH/MM3 (1.8-7.7); BASOPHIL % 0.5 % (0.0-2.0); EOSINOPHIL # 0.3 TH/MM3 (0-0.4); EOSINOPHIL % 3.4 % (0.0-4.0); HEMO FLAGS DIFF FINAL; LYMPH % 10.4 % (9.0-44.0); LYMPHOCYTE # 0.9 TH/MM3 (1.0-4.8); MEAN CORPUSCULAR HEMOGLOBIN 32.9 PG (27.0-34.0); MEAN CORPUSCULAR HGB CONC 35.3 % (32.0-36.0); MONO % 6.8 % (0.0-8.0); NEUT % 78.9 % (16.0-70.0); PLATELET COUNT 378 TH/MM3 (150-450); RED BLOOD COUNT 3.98 MIL/MM3 (4.50-5.90); RED CELL DISTRIBUTION WIDTH 13.2 % (11.6-17.2); WHITE BLOOD COUNT 8.8 TH/MM3 (4.0-11.0)
[2016-07-06 13:09] LABS: APTT (PATIENT) 35.2 SEC (24.3-30.1); INTERNATIONAL NORMALIZED RATIO 1.9 RATIO
--- NOTE | 2016-07-06 13:20 | RADRPT ---
EXAM DATE/TIME: 07/06/2016 12:47 [facility] COMPARISON: CHEST SINGLE AP, June 18, 2016, 14:54. INDICATIONS : Shortness of breath. MEDICAL HISTORY : None. SURGICAL HISTORY : None. ENCOUNTER: Initial ACUITY: 1 week PAIN SCORE: 0/10 LOCATION: Chest FINDINGS: Minimal bibasilar parenchymal changes are noted. Heart and pulmonary vascularity are normal. Portio n of bony skeleton visualized is unremarkable. CONCLUSION: Minimal bibasilar parenchymal changes. Otherwise, negative. Vinny Puente MD FACR on July 06, 2016 at 13:16 Board Certified Radiologist. This report was verified electronically.
[2016-07-06 13:22] LABS: ALT (GPT) 67 U/L (12-78); ANION GAP 8 MEQ/L (5-15); AST (GOT) 50 U/L (15-37); BICARBONATE 29.4 MEQ/L (21.0-32.0); BLOOD UREA NITROGEN 43 MG/DL (7-18); CHLORIDE 101 MEQ/L (98-107); GLOMERULAR FILTRATION RATE 44 ML/MIN (>89); MAGNESIUM 2.5 MG/DL (1.5-2.5); POTASSIUM 4.7 MEQ/L (3.5-5.1); SODIUM (NA) 138 MEQ/L (136-145)
[2016-07-06 13:26] LABS: ALKALINE PHOSPHATASE 207 U/L (45-117); CREATINE KINASE 104 U/L (39-308); TOTAL BILIRUBIN ADULT 0.8 MG/DL (0.2-1.0)
[2016-07-06] MEDS ORDERED: ZOFR4TAB3 SL (13:36)
[2016-07-06] MEDS ORDERED: CEPH-460 PO (13:36)
[2016-07-06] MEDS ORDERED: NYST1000 SWISH-SWAL (13:36)
[2016-07-06] MEDS ORDERED: WARF-23 PO (13:36)
[2016-07-06] MEDS ORDERED: MIRA33504 PO (13:36)
[2016-07-06] MEDS ORDERED: OMEP20TA PO (13:36)
[2016-07-06] MEDS ORDERED: GAS-80CH CHEW (13:36)
[2016-07-06 13:38] LABS: CKMB 1.6 NG/ML (0.5-3.6)
[2016-07-06 14:14] LABS: BACTERIA, URINE RARE /hpf; BLOOD, URINE NEG (NEG); GLUCOSE,URINE NEG (NEG); HYALINE CAST, URINE 2 /lpf (RARE); KETONE, URINE NEG (NEG); NITRITE,URINE NEG (NEG); SQUAMOUS EPITHELIAL CELL URINE <1 /hpf (0-5); URINE COLOR YELLOW (YELLW/STRAW)
[2016-07-06 14:17] LABS: COMMENT (UR) CULT NOT INDICATED; CULTURE IF INDICATED CULT NOT INDICATED
[2016-07-06] MEDS ORDERED: ACETAMINOPHEN/HYDROcodone 325 MG/5 MG TAB PO ONE (14:30)
[2016-07-06] MEDS ORDERED: SODIUM CHLOR 0.9% 1000 ML INJ 1,000 ML IV SCH (14:45)
[2016-07-06] MEDS ORDERED: SIMETHICONE 80 MG CHEWABLE TAB CHEW PRN (14:45)
[2016-07-06] MEDS: CEPHALEXIN MONOHYDRATE 500 MG CAP PO SCH ×2 (15:08→22:26)
[2016-07-06] MEDS: RESP: ALBUTEROL 2.5 MG/IPRATROPIUM 0.5 MG NEB (SCH) NEB (15:11)
[2016-07-06] MEDS ORDERED: DO NOT ADM ANY ANTICOAGULANT DRUGS OTHER PRN (15:45)
--- NOTE | 2016-07-06 15:51 | HHI.HP ---
[facility] Physician Bonifacio Servin MD Admission Diagnosis near syncope/acute renal failure Diagnoses: Chief Complaint: Presyncope, generalized weakness Travel History International Travel<30 Days: No Contact w/Intl Traveler <30 Da: No Traveled to Known Affected Are: No History of Present Illness This is a 70-year-old male with history of atrial fibrillation, obstructive sleep apnea, chronic respiratory failure with home oxygen, and congestive heart failure presenting to the hospital with a presyncopal attack/generalized weakness. Of note, patient went for a left total hip arthroplasty 06/17/16, patient's hospital stay was complicated with atrial fibrillation with RVR and hypoxia secondary to pleural effusion for which the patient was diuresed with good response. Patient was then discharged to rehabilitation. Patient has been doing fine until about a week ago when he started having progressive generalized weakness with poor oral intake due to an erection. Patient denies any fever, chills, shortness of breath, nausea, vomiting, chest pain or palpitations. Today however, his generalized weakness is so bad that when he was doing physical therapy, he is legs gave way, he became dizzy and lightheaded but he did not have any palpitations or blurring of vision. Again there is no note of any chest pain. Patient did not pass out. He admits to poor oral intake in the last 2 weeks since he was transferred to rehabilitation. Review of Systems ROS Limitations: Other (All other pertinent systems were reviewed and are negative.) Past Family Social History Past Medical History 1. Chronic atrial fibrillation/flutter. 2. Hypertension. 3. Hyperlipidemia. 4. Osteoarthritis. 5. Obstructive sleep apnea 6. Chronic respiratory failure on home oxygen Past Surgical History 1. Right knee surgery for a meniscal tear. 2. Spinal fusion of C4-C5. 3. Left hip replacement Reported Medications Duoneb (Ipratropium-Albuterol Neb) 0.5-2.5 Mg/3 Ml Neb 1 Ampule NEB Q6HR NEB [place] (Hydrocodone-Acetaminophen) 7.5-325 mg Tab 1-2 Tab PO Q6H PRN Miralax Powder (Polyethylene Glycol 3350 Powder) 17 Gm Powd 17 Gm PO DAILY Mix and dissolve one measuring cap-ful (17 grams) in water or juice. Gas-X (Simethicone) 80 Mg Chew 80 Mg CHEW QID PRN Keflex (Cephalexin) 500 Mg Cap 500 Mg PO Q6H Zofran Odt (Ondansetron Odt) 4 Mg Tab 4 Mg SL Q6HR PRN Nystatin Liq 100,000 unit/ml Susp 5 Ml SWISH-SWAL QID Omeprazole 20 Mg Tab 20 Mg PO DAILY Warfarin 5 Mg Tab 5 Mg PO DAILY Vitamin C (Ascorbic Acid) 250 Mg Chew Unknown Dose CHEW DAILY Centrum Adults (Multiple Vitamins W/ Minerals) 1 Tab 1 Tab PO DAILY Lisinopril 2.5 Mg Tab 2.5 Mg PO DAILY Digox (Digoxin) 0.125 Mg Tab 0.125 Mg PO DAILY Warfarin 3 Mg Tab 3 Mg PO MO,WE,FR Warfarin 6 Mg Tab 6 Mg PO DAILY Metoprolol Tartrate 50 Mg Tab 50 Mg PO BID Atorvastatin (Atorvastatin Calcium) 20 Mg Tab 20 Mg PO HS Allergies: Coded Allergies: No Known Allergies (Verified , 07/06/16) Family History Denies premature coronary artery disease or sudden cardiac within the family. No history of hypertension or diabetes. Father may have heart problems. Social History The patient occasionally smokes a cigar. Denies alcohol or drug abuse. Physical Exam Vital Signs Vital Signs Date Time Temp Pulse Resp B/P Pulse Ox O2 Delivery O2 Flow Rate FiO2 07/06/16 15:16 94 Nasal Cannula 3.00 07/06/16 14:00 75 18 127/66 95 Nasal Cannula 2 07/06/16 13:09 70 18 102/66 95 Nasal Cannula 2 07/06/16 12:37 72 18 99/59 95 Nasal Cannula 2 07/06/16 12:30 72 18 87/57 96 Nasal Cannula 2 07/06/16 12:27 72 18 87/57 94 Nasal Cannula 2 07/06/16 12:16 98.2 73 18 87/57 95 Physical Exam GENERAL: Not in acute distress, well-nourished. HEAD: Atraumatic. Normocephalic. No temporal or scalp tenderness. EYES: PERRL, full EOMs, no jaundice, nonicteric, pink conjunctivae without injection, moist mucosa ENT: Nose without bleeding, purulent drainage. [place] patent. NECK: Trachea midline, no mass, no obvious thyromegaly. No JVD or lymphadenopathy. CARDIOVASCULAR: Regular rate and rhythm RESPIRATORY: Clear to auscultation with normal respiratory effort. Breath sounds equal bilaterally. No use of accessory muscles of respiration. GASTROINTESTINAL: Abdomen soft, normal bowel sounds, non-tender, nondistended. No hepato-splenomegaly or palpable mass. No guarding. ANU and exam deferred. MUSCULOSKELETAL: Extremities without clubbing, cyanosis, or edema. Left hip wound is clean, well apposed, Steri-Strips in place, no discharge, no tenderness , no erythema. INTEGUMENTARY: Warm and dry, no rash of generalized distribution. NEUROLOGICAL: Awake, alert, oriented 3. No obvious cranial nerve deficits. Moves all 4 extremities, muscle strength testing 5 over 5. Motor and sensory grossly within normal limits. .Supple neck, no meningeal signs. Grossly negative cerebellar examination. No focal neurologic deficits. PSYCHIATRIC: Normal mood, appropriate affect. Laboratory Laboratory Tests Test 07/06/16 07/06/16 12:45 13:59 White Blood Count 8.8 Red Blood Count 3.98 Hemoglobin 13.1 Hematocrit 37.0 Mean Corpuscular Volume 93.0 Mean Corpuscular Hemoglobin 32.9 Mean Corpuscular Hemoglobin 35.3 Concent Red Cell Distribution Width 13.2 Platelet Count 378 Mean Platelet Volume 8.5 Neutrophils (%) (Auto) 78.9 Lymphocytes (%) (Auto) 10.4 Monocytes (%) (Auto) 6.8 Eosinophils (%) (Auto) 3.4 Basophils (%) (Auto) 0.5 Neutrophils # (Auto) 6.9 Lymphocytes # (Auto) 0.9 Monocytes # (Auto) 0.6 Eosinophils # (Auto) 0.3 Basophils # (Auto) 0.0 CBC Comment DIFF FINAL Differential Comment Prothrombin Time 22.0 Prothromb Time International 1.9 Ratio Activated Partial 35.2 Thromboplast Time Sodium Level 138 Potassium Level 4.7 Chloride Level 101 Carbon Dioxide Level 29.4 Anion Gap 8 Blood Urea Nitrogen 43 Creatinine 1.58 Estimat Glomerular Filtration 44 Rate Random Glucose 111 Calcium Level 8.6 Magnesium Level 2.5 Total Bilirubin 0.8 Aspartate Amino Transf 50 (AST/SGOT) Alanine Aminotransferase 67 (ALT/SGPT) Alkaline Phosphatase 207 Total Creatine Kinase 104 Creatine Kinase MB 1.6 Troponin I LESS THAN 0.02 B-Type Natriuretic Peptide 9 Total Protein 6.9 Albumin 3.1 Urine Color YELLOW Urine Turbidity CLEAR Urine pH 6.0 Urine Specific [place] 1.008 Urine Protein NEG Urine Glucose (UA) NEG Urine Ketones NEG Urine Occult Blood NEG Urine Nitrite NEG Urine Bilirubin NEG Urine Urobilinogen LESS THAN 2.0 Urine Leukocyte Esterase NEG Urine WBC 1 Urine Squamous Epithelial <1 Cells Urine Bacteria RARE Urine Hyaline Casts 2 Microscopic Urinalysis Comment CULT NOT INDICATED Result Diagram: 07/06/16 1245 07/06/16 1245 Imaging Last Impressions Chest X-Ray 07/06/16 1225 Signed Impressions: Service Date/Time: Friday, July 06, 2016 12:47 - CONCLUSION: Minimal bibasilar parenchymal changes. Otherwise, negative. Vinny Puente MD FACR Assessment and Plan Problem List: (1) Acute renal failure (ARF) ICD Code: N17.9 Status: Acute (2) Atrial fibrillation ICD Code: I48.91 Status: Chronic (3) Status post hip surgery ICD Code: Z98.890 Status: Chronic (4) Chronic respiratory failure ICD Code: J96.10 Status: Chronic (5) Atrial flutter ICD Code: I48.92 Status: Chronic (6) Pre-syncope ICD Code: R55 Status: Chronic Assessment and Plan This is a 70-year-old male with history of atrial flutter/atrial fibrillation and recent left hip total arthroplasty presenting with generalized weakness and presyncope Presyncope likely secondary to hypotension from dehydration-admit inpatient, start telemetry, rehydrate. Acute renal failure secondary to hypovolemia-could of course presyncope, patient was hypotensive on admission, status post 1 L of normal saline, continue IVF at the 100. Patient however is history of congestive heart failure , will check echocardiogram to rule out CHF. Check ultrasound of the kidneys, urinalysis did not show any proteinuria.. Hold digoxin for now. Recheck BMP tomorrow. Baseline creatinine is normal Chronic respiratory failure and home oxygen-patient sleep apnea, also had previous pleural effusion, chest x-ray personally reviewed showed bibasilar nonspecific parenchymal changes. No leukocytosis. Continue duo nebs. History of congestive heart failure-chest x-ray as above, check BNP tomorrow, check echocardiogram. Generalized weakness-likely secondary to dehydration, check physical therapy, discharged back to sleep if needed. Recent left hip arthroplasty-wound looks good, clean, continue physical therapy , [place] for pain, bowel regimen. Continue Keflex. Atrial flutter-EKG personally reviewed showed atrial flutter, controlled rate. Continue Coumadin. Blood pressure is better, restart metoprolol, continue statin DVT prophylaxis: Coumadin Discussed with Physician Certification 2 Midnight Certification Type: Admission for Inpatient Services Order for Inpatient Services The services are ordered in accordance with Medicare regulations or non- Medicare payer requirements, as applicable. In the case of services not specified as inpatient-only, they are appropriately provided as inpatient services in accordance with the 2-midnight benchmark. Estimated LOS (days): 2 days is the estimated time the patient will need to remain in the hospital, assuming treatment plan goals are met and no additional complications. Post-Hospital Plan: [facility] Stewart Padilla MD Jul 06, 2016 15:51
[2016-07-06] MEDS ORDERED: ACETAMINOPHEN 325 MG TAB PO PRN (16:00)
[2016-07-06] MEDS ORDERED: NALOXONE HCL 0.4 MG/ML AMP IV PRN (16:00)
[2016-07-06] MEDS ORDERED: WARFARIN SOD 3 MG TAB PO SCH (16:00)
[2016-07-06] MEDS ORDERED: ACETAMINOPHEN/HYDROcodone 325 MG/5 MG TAB PO PRN (16:00)
[2016-07-06] MEDS: WARFARIN SOD 5 MG TAB PO SCH (17:10)
[2016-07-06] MEDS: NYSTATIN SUSP 500,000 U/5 ML CUP SWISH-SWAL SCH ×2 (17:10→22:26)
[2016-07-06 17:49] LABS: INTERNATIONAL NORMALIZED RATIO 1.9 RATIO; PROTHROMBIN TIME - PATIENT 21.3 SEC (9.8-11.6)
--- NOTE | 2016-07-06 18:16 | RADRPT ---
EXAM DATE/TIME: 07/06/2016 16:33 [facility] COMPARISON: CT PULMONARY ANGIOGRAM, June 21, 2016, 19:40. INDICATIONS : Acute renal failure. MEDICAL HISTORY : Congestive heart failure. Carcinoma, prostate. Hypertension. Afib. Pneumonia. Sleep apnea. Arthritis. Chemotherapy. Radiation therapy. SURGICAL HISTORY : Fusion, cervical. Right knee replacement. Left hip replacement. ENCOUNTER: Initial ACUITY: 1 day PAIN SCORE: 0/10 LOCATION: Bilateral flank MEASUREMENTS: RIGHT KIDNEY: 10.8 x 6.0 x 5.9 cm LEFT KIDNEY: 13.2 x 6.3 x 6.8 cm FINDINGS: RIGHT KIDNEY: There is thinning of the cortex of the right kidney. No dilation of the collecting system and renal sinus. Mild prominence of the extrarenal pelvis. There is a thin hypoechoic area paralleling the mi dpole of the right kidney; cannot exclude some perinephric fluid.. LEFT KIDNEY: Renal cortex is normal in thickness. There is prominence of the extrarenal pelvis which extends into the renal sinus suggesting possible hydronephrosis. There is still discernible fat in the renal sin us. BLADDER: Within normal limits given the degree of distension. CONCLUSION: Prominence of the extrarenal pelvis on both sides and possible dilation of the collecting system of t he left kidney. Possible thin rim of perinephric fluid on the right side. Adrian Virk MD on July 06, 2016 at 18:11 Board Certified Radiologist. This report was verified electronically.
[2016-07-06] MEDS ORDERED: HEPARIN SODIUM - SQ 10,000 UNITS/ML VIAL SQ SCH (22:00)
[2016-07-06] MEDS: ATORVASTATIN 20 MG TAB PO SCH (22:27)
[2016-07-07] VITALS (11 sets, daily range): BP systolic 108–142; BP diastolic 68–81; PULSE 68–117; RESP 18–22; TEMP 95.5–98; O2SAT 92–98
--- NOTE | 2016-07-07 00:03 | EKG ---
Date Performed: 07/06/2016 Time Performed: 12:35:54 PTAGE: 70 years EKG: ATRIAL FLUTTER/TACHYCARDIA ABNORMAL ECG PREVIOUS TRACING : 06/17/2016 15.30 DOCTOR: Nestor Recinos Interpretating Date/Time 07/07/2016 00:02:47
[2016-07-07] MEDS: CEPHALEXIN MONOHYDRATE 500 MG CAP PO SCH ×5 (02:47→20:54)
[2016-07-07] MEDS: RESP: ALBUTEROL 2.5 MG/IPRATROPIUM 0.5 MG NEB (SCH) NEB ×4 (04:50→21:12)
[2016-07-07] MEDS: PANTOPRAZOLE SOD 20 MG DELAYED RELEASE TAB PO SCH (07:52)
[2016-07-07] MEDS: NYSTATIN SUSP 500,000 U/5 ML CUP SWISH-SWAL SCH ×4 (07:53→20:53)
[2016-07-07] MEDS: WARFARIN SOD 5 MG TAB PO SCH (07:53)
[2016-07-07 09:37] LABS: AUTOMATED NEUTROPHIL # 5.4 TH/MM3 (1.8-7.7); BASOPHIL % 0.5 % (0.0-2.0); EOSINOPHIL # 0.3 TH/MM3 (0-0.4); EOSINOPHIL % 3.6 % (0.0-4.0); HEMATOCRIT 37.7 % (39.0-51.0); HEMO FLAGS DIFF FINAL; LYMPH % 15.1 % (9.0-44.0); LYMPHOCYTE # 1.1 TH/MM3 (1.0-4.8); MEAN CELL VOLUME 94.5 FL (80.0-100.0); MEAN CORPUSCULAR HEMOGLOBIN 30.9 PG (27.0-34.0); MEAN CORPUSCULAR HGB CONC 32.7 % (32.0-36.0); MONO % 8.1 % (0.0-8.0); NEUT % 72.7 % (16.0-70.0); PLATELET COUNT 309 TH/MM3 (150-450); RED BLOOD COUNT 3.99 MIL/MM3 (4.50-5.90); RED CELL DISTRIBUTION WIDTH 13.3 % (11.6-17.2); WHITE BLOOD COUNT 7.4 TH/MM3 (4.0-11.0)
[2016-07-07 09:44] LABS: INTERNATIONAL NORMALIZED RATIO 1.8 RATIO
[2016-07-07 10:07] LABS: POTASSIUM 4.6 MEQ/L (3.5-5.1)
--- NOTE | 2016-07-07 14:55 | HHI.PR ---
Subjective Remarks Follow-up for generalized weakness Patient denies shortness of breath, drinking, but still without any good appetite. No fever or chills. Mildly tachycardic. Objective Vitals Vital Signs Date Time Temp Pulse Resp B/P Pulse Ox O2 Delivery O2 Flow Rate FiO2 07/07/16 12:06 96.8 79 18 108/72 95 07/07/16 09:15 95 Nasal Cannula 1.00 07/07/16 08:03 95.5 80 18 113/74 95 07/07/16 07:15 117 07/07/16 04:50 93 Nasal Cannula 1.00 07/07/16 04:00 97.8 94 20 134/68 92 07/07/16 00:00 97.7 96 20 142/81 94 07/06/16 20:00 96.1 95 18 149/97 95 07/06/16 20:00 96.1 95 18 149/97 95 07/06/16 19:15 70 07/06/16 17:00 96.0 107 20 121/65 94 07/06/16 15:16 94 Nasal Cannula 3.00 I/O 07/06/16 07/06/16 07/06/16 07/07/16 07/07/16 07/07/16 07:00 15:00 23:00 07:00 15:00 23:00 Intake Total 480 ml 120 ml 1140 ml Output Total 150 ml 700 ml 600 ml Balance 330 ml -580 ml 540 ml Intake Oral 480 ml 120 ml 240 ml IV Total 900 ml Output Urine Total 150 ml 700 ml 600 ml # Bowel Movements 0 Result Diagram: 07/07/16 0730 07/07/16 0730 Objective Remarks GENERAL: Not in acute distress, well-nourished. HEAD: Atraumatic. Normocephalic. No temporal or scalp tenderness. EYES: PERRL, full EOMs, no jaundice, nonicteric, pink conjunctivae ENT: Airway patent CARDIOVASCULAR: Borderline tachycardic, irregular rhythm. RESPIRATORY: Clear to auscultation with normal respiratory effort. Breath sounds equal bilaterally. GASTROINTESTINAL: Abdomen soft, normal bowel sounds, non-tender, nondistended. No hepato-splenomegaly or palpable mass. No guarding. ANU and exam deferred. MUSCULOSKELETAL: Extremities without clubbing, cyanosis, or edema. Left hip wound is clean, well apposed, Steri-Strips in place, no discharge, no tenderness , no erythema. INTEGUMENTARY: Warm and dry, no rash of generalized distribution. NEUROLOGICAL: Awake, alert, oriented 3. No obvious cranial nerve deficits. Moves extremities. Positive for generalized weakness. PSYCHIATRIC: Normal mood, appropriate affect. A/P Problem List: (1) Acute renal failure (ARF) ICD Code: N17.9 Status: Acute (2) Atrial fibrillation ICD Code: I48.91 Status: Chronic (3) Status post hip surgery ICD Code: Z98.890 Status: Chronic (4) Chronic respiratory failure ICD Code: J96.10 Status: Chronic (5) Atrial flutter ICD Code: I48.92 Status: Chronic (6) Pre-syncope ICD Code: R55 Status: Chronic Assessment and Plan This is a 70-year-old male with history of atrial flutter/atrial fibrillation and recent left hip total arthroplasty presenting with generalized weakness and presyncope Presyncope likely secondary to hypotension from dehydration-admit inpatient, continue telemetry, status post IVF. Acute renal failure secondary to hypovolemia-could have caused presyncope, patient was hypotensive on admission, creatinine better, stop IVF. Patient has history of congestive heart failure, follow-up echocardiogram. Ultrasound of the kidney showed possible dilation of the left kidney, prominence of extrarenal pelvis bilaterally, possible perinephric fluid around the right kidney, urinalysis did not show any proteinuria.. Recheck BMP tomorrow, restart digoxin. Good urine output. If creatinine increases again, consult urology. Chronic respiratory failure and home oxygen-patient sleep apnea, also had previous pleural effusion, chest x-ray personally reviewed showed bibasilar nonspecific parenchymal changes. No leukocytosis. Continue duo nebs. History of congestive heart failure-chest x-ray as above, BNP is normal, awaiting echocardiogram. Poor oral intake-start Megace Generalized weakness-likely secondary to dehydration, consult physical therapy, discharged back to SNF Recent left hip arthroplasty-wound looks good, clean, continue physical therapy , [place] for pain, bowel regimen. Continue Keflex. Atrial flutter-EKG personally reviewed showed atrial flutter, controlled rate. Continue Coumadin. Blood pressure is better, continue metoprolol, continue statin DVT prophylaxis: Coumadin Discharge Planning Discharged back to SNF versus home health care in 1-2 days Stewart Padilla MD Jul 07, 2016 14:55
[2016-07-07] MEDS: DIGOXIN 0.125 MG TAB PO SCH (15:35)
[2016-07-07] MEDS: METOPROLOL TARTRATE 50 MG TAB PO SCH ×2 (15:35→20:54)
[2016-07-07] MEDS: MEGESTROL ACETATE SUSP 400 MG/10 ML CUP PO SCH (15:44)
[2016-07-07] MEDS: ATORVASTATIN 20 MG TAB PO SCH (20:54)
[2016-07-08] VITALS (11 sets, daily range): BP systolic 100–136; BP diastolic 64–80; PULSE 59–140; RESP 16–20; TEMP 95.2–99.4; O2SAT 94–98
[2016-07-08] MEDS: CEPHALEXIN MONOHYDRATE 500 MG CAP PO SCH ×4 (02:44→21:04)
[2016-07-08] MEDS: RESP: ALBUTEROL 2.5 MG/IPRATROPIUM 0.5 MG NEB (SCH) NEB ×4 (04:00→20:31)
[2016-07-08 08:11] LABS: PROTHROMBIN TIME - PATIENT 23.3 SEC (9.8-11.6)
[2016-07-08 08:32] LABS: BICARBONATE 32.1 MEQ/L (21.0-32.0); POTASSIUM 4.2 MEQ/L (3.5-5.1)
[2016-07-08] MEDS: WARFARIN SOD 5 MG TAB PO SCH (08:43)
[2016-07-08] MEDS: MEGESTROL ACETATE SUSP 400 MG/10 ML CUP PO SCH (08:44)
[2016-07-08] MEDS: PANTOPRAZOLE SOD 20 MG DELAYED RELEASE TAB PO SCH (08:44)
[2016-07-08] MEDS: DIGOXIN 0.125 MG TAB PO SCH (08:44)
[2016-07-08] MEDS: NYSTATIN SUSP 500,000 U/5 ML CUP SWISH-SWAL SCH ×4 (08:44→21:05)
[2016-07-08] MEDS: METOPROLOL TARTRATE 50 MG TAB PO SCH ×2 (08:44→21:05)
--- NOTE | 2016-07-08 10:35 | HHI.PR ---
Subjective Remarks resting comfortably with no distress. denies chest pain or sob. says that he's feeling stronger to some extent. Objective Vitals Vital Signs Date Time Temp Pulse Resp B/P Pulse Ox O2 Delivery O2 Flow Rate FiO2 07/08/16 09:14 59 07/08/16 08:12 95.9 84 20 136/66 95 07/08/16 04:00 97.3 95 20 100/67 98 07/08/16 00:00 97.0 93 20 109/66 96 07/07/16 20:00 96.9 91 20 116/71 96 07/07/16 19:15 68 07/07/16 16:16 94 Nasal Cannula 1.00 07/07/16 16:06 98.0 103 22 114/77 98 07/07/16 12:06 96.8 79 18 108/72 95 I/O 07/07/16 07/07/16 07/07/16 07/08/16 07/08/16 07/08/16 07:00 15:00 23:00 07:00 15:00 23:00 Intake Total 120 ml 1140 ml 400 ml 100 ml Output Total 700 ml 600 ml 475 ml 225 ml Balance -580 ml 540 ml 400 ml -375 ml -225 ml Intake Oral 120 ml 240 ml 400 ml 100 ml IV Total 900 ml Output Urine Total 700 ml 600 ml 475 ml 225 ml # Voids 1 # Bowel Movements 0 1 Result Diagram: 07/07/16 0730 07/08/16 0655 Imaging Last Impressions Chest X-Ray 07/06/16 1225 Signed Impressions: Service Date/Time: Wednesday, July 06, 2016 12:47 - CONCLUSION: Minimal bibasilar parenchymal changes. Otherwise, negative. Vinny Puente MD FACR Renal Ultrasound 07/06/16 0000 Signed Impressions: Service Date/Time: Wednesday, July 06, 2016 16:33 - CONCLUSION: Prominence of the extrarenal pelvis on both sides and possible dilation of the collecting system of the left kidney. Possible thin rim of perinephric fluid on the right side. Adrian Virk MD Objective Remarks GENERAL: This is a well-nourished, well-developed patient, in no apparent distress. CARDIOVASCULAR: Regular rate and regular rhythm without murmurs, gallops, or rubs. RESPIRATORY: Clear to auscultation. Breath sounds equal bilaterally. No wheezes , rales, or rhonchi. GASTROINTESTINAL: Abdomen soft, non-tender, nondistended. Normal, active bowel sounds MUSCULOSKELETAL: Extremities without clubbing, cyanosis, or edema. NEURO: Alert & Oriented x4 to person, place, time, situation. Moves all ext x4 Procedures none Medications and IVs Current Medications Sodium Chloride 2 ml 2 ml UNSCH PRN IVF FLUSH AFTER USING IV ACCESS; Start 07/06 at 12:30 Sodium Chloride (NS 1000 ml Inj) 1,000 ml @ 1,000 mls/hr Q1H ONCE IV Last administered on 07/06/16 12:49; Start 07/06/16 at 12:25; Stop 07/06/16 at 13:24; Status DC Acetaminophen/ Hydrocodone Bitart 1 tab 1 tab ONCE ONCE PO Last administered on 07/06/16 14:40; Start 07/06/16 at 14:30; Stop 07/06/16 at 14:31; Status DC Sodium Chloride (NS 1000 ml Inj) 1,000 ml @ 100 mls/hr Q10H IV Last administered on 07/06/16 15:08; Start 07/06/16 at 14:45; Stop 07/07/16 at 00:44; Status DC Heparin Sodium (Porcine) (Heparin Inj) 5,000 units Q8HR SQ ; Start 07/06/16 at 22 :00; Stop 07/06/16 at 22:00; Status DC Atorvastatin Calcium (Lipitor) 20 mg HS PO Last administered on 07/07/16 20:54 ; Start 07/06/16 at 21:00 Cephalexin Monohydrate (Keflex) 500 mg Q6H PO Last administered on 07/08/16 08: 43; Start 07/06/16 at 15:00 Albuterol/ Ipratropium (Duoneb Neb) 1 ampule Q6HR NEB NEB Last administered on 07/07/16 21:12; Start 07/06/16 at 16:00 Nystatin (Mycostatin Liq) 5 ml QID SWISH-SWAL Last administered on 07/08/16 08 :44; Start 07/06/16 at 18:00 Simethicone (Mylicon Chew) 80 mg QID PRN CHEW GAS RETENTION; Start 07/06/16 at 14:45 Warfarin Sodium (Coumadin) 3 mg MoWeFr PO ; Start 07/06/16 at 16:00; Stop at 16:00; Status DC Warfarin Sodium (Coumadin) 5 mg DAILY PO Last administered on 07/08/16 08:43; Start 07/06/16 at 16:00 Pantoprazole Sodium 20 mg 20 mg DAILY PO Last administered on 07/08/16 08:44; Start 07/07/16 at 09:00 Pharmacy Profile Note (Coumadin Consult Pharmacy) 0 ml @ 0 mls/hr UNSCH OTHER ; Start 07/06/16 at 15:00 Miscellaneous Information ALL NURSING DEPARTME... UNSCH PRN OTHER SEE LABEL COMMENTS; Start 07/06/16 at 15:45; Stop 07/07/16 at 15:44; Status DC Patient Medication Teaching (Coumadin Booklet) 1 ONCE ONCE OTHER Last administered on 07/06/16 17:10; Start 07/06/16 at 16:00; Stop 07/06/16 at 16:01; Status DC Acetaminophen (Tylenol) 650 mg Q6H PRN PO PAIN SCALE 1 TO 2; Start 07/06/16 at 16:00 Acetaminophen/ Hydrocodone Bitart ([place] 5-325 Mg) 1 tab Q4H PRN PO PAIN SCALE 3 TO 10; Start 07/06/16 at 16:00 Naloxone HCl (Narcan Inj) 0.4 mg UNSCH PRN IV SEE LABEL COMMENTS; Start at 16:00 Megestrol Acetate (Megace Liq) 400 mg DAILY PO Last administered on 07/08/16 08 :44; Start 07/07/16 at 14:54 Digoxin (Lanoxin) 0.125 mg DAILY PO Last administered on 07/08/16 08:44; Start 07/07/16 at 15:00 Metoprolol Tartrate (Lopressor) 50 mg BID PO Last administered on 07/08/16 08: 44; Start 07/07/16 at 15:00 A/P Assessment and Plan A/P Presyncope likely secondary to hypotension from dehydration- status post IVF. check orthostatic BP- echo pending. Acute renal failure secondary to hypovolemia-could have caused presyncope, patient was hypotensive on admission, creatinine better after IV fluid. Patient has history of congestive heart failure, follow-up echocardiogram. Ultrasound of the kidney showed possible dilation of the left kidney, prominence of extrarenal pelvis bilaterally, possible perinephric fluid around the right kidney, urinalysis did not show any proteinuria.. good urine output and renal function has improved. Chronic respiratory failure and home oxygen-patient sleep apnea, also had previous pleural effusion, chest x-ray personally reviewed showed bibasilar nonspecific parenchymal changes. No leukocytosis. Continue duo nebs. History of congestive heart failure-chest x-ray as above, BNP is normal, awaiting echocardiogram. Poor oral intake-started Megace Generalized weakness-likely secondary to dehydration, consulted physical therapy , discharged back to SNF Recent left hip arthroplasty- continue physical therapy, [place] for pain, bowel regimen. Continue Keflex. Atrial flutter-rate controlled. Continue Coumadin. Blood pressure is better, continue metoprolol, continue statin DVT prophylaxis: Coumadin Discharge Planning patient wants to go back to a different rehab facility. possible dc to SNF in am if stable and when arrangements made. d/w the case management. Nayan Odom MD Jul 08, 2016 10:35
--- NOTE | 2016-07-08 14:38 | EC ---
Study Study Date:07/08/2016 STUDY CONCLUSIONS SUMMARY - Left ventricle: The cavity size was normal. Wall thickness was at the upper limits of normal. Systolic function was mildly to moderately reduced. The estimated ejection fraction was in the range of 40% to 45%. Wall motion was normal; there were no regional wall motion abnormalities. - Aortic valve: Valve area: 4.04cm^2 (Vmax). If LV function is below 40, please consider prescribing an ACEI or ARB or document rationale for non-use. PROCEDURE DATA STUDY STATUS: Elective. Procedure: Transthoracic echocardiography. Image quality was good. Scanning was performed from the parasternal, apical, and subcostal acoustic windows. Study completion: The patient tolerated the procedure well. Transthoracic echocardiography. M-mode, complete 2D, complete spectral Doppler, and color Doppler. Height: Height: 72in. Weight: Weight: 244.5lb. Body mass index: BMI: 33.2kg/m^2. Body surface area: BSA: 2.32m^2. Patient status: Inpatient. CARDIAC ANATOMY LEFT VENTRICLE: The cavity size was normal. Wall thickness was at the upper limits of normal. Systolic function was mildly to moderately reduced. The estimated ejection fraction was in the range of 40% to 45%. Wall motion was normal; there were no regional wall motion abnormalities. AORTIC VALVE: Trileaflet; normal thickness leaflets. Doppler: Transvalvular velocity was within the normal range. There was no stenosis. No regurgitation. Valve area: 4.04cm^2 (Vmax). Indexed valve area: 1.74cm^2/m^2 (Vmax). AORTA: Aortic root: The aortic root was normal in size. MITRAL VALVE: Structurally normal valve. Doppler: Transvalvular velocity was within the normal range. There was no evidence for stenosis. No regurgitation. Valve area by pressure half-time: 5.12cm^2. Indexed valve area by pressure half-time: 2.21cm^2/m^2. Peak gradient: 2mm Hg (D). LEFT ATRIUM: The atrium was normal in size. RIGHT VENTRICLE: The cavity size was normal. Wall thickness was normal. PULMONIC VALVE: Doppler: Transvalvular velocity was within the normal range. There was no evidence for stenosis. No regurgitation. TRICUSPID VALVE: Structurally normal valve. Doppler: Transvalvular velocity was within the normal range. Trace regurgitation. Peak gradient: 11mm Hg (D). PULMONARY ARTERY: The main pulmonary artery was normal-sized. Systolic pressure was within the normal range. RIGHT ATRIUM: The atrium was normal in size. PERICARDIUM: There was no pericardial effusion. SYSTEMIC VEINS: Inferior vena cava: The vessel was mildly dilated. Patient weight: 244.5lb _Ejection fraction:_ 65-75% _Fractional shortening:_ 32% up to 5Kg 5-11.5Kg 11.6-22.9Kg 23-45Kg 45-57Kg Aortic Root 7-13 <17 13-22 17-27 17-27 LA diam 6-13 <23 24-38 33-47 37-40 RVID 10-17 7-15 7-15 7-18 8-17 LVIDd 12-22 <32 24-38 33-47 37-40 LVPW 2-4 3-6 5-7 6-8 7-8 IVS 2-4 3-6 5-7 6-8 7-8 BASIC MEASUREMENTS ADULT NORMAL Left ventricle LV internal dimension, ED, chordal *41.3 mm 43-52 level, PLAX LV internal dimension, ES, chordal 32.2 mm 23-38 level, PLAX Fractional shortening, chordal level, *22 % >29 PLAX LV posterior wall thickness, ED 11.4 mm IVS/LVPW ratio, ED 1.01 <1.3 Volume, ED, MOD, 1-plane 82 ml Volume, ES, MOD, 1-plane 38 ml Ejection fraction, MOD, 1-plane 54 % Stroke volume, MOD, 1-plane 44 ml Volume index, ED, MOD, 1-plane 35 ml/m^2 Volume index, ES, MOD, 1-plane 16 ml/m^2 Stroke index, MOD, 1-plane 19 ml/m^2 Ventricular septum Septal thickness, ED 11.5 mm Aortic valve Leaflet separation 21 mm 15-26 Aorta Root diameter, ED 34 mm Left atrium Anterior-posterior dimension 32 mm Anterior-posterior dimension index 1.38 cm/m^2 <2.2 Right ventricle RV internal dimension, ED, PLAX 30.2 mm 19-38 BASIC MEASUREMENTS ADULT NORMAL Aortic valve Leaflet separation 21 mm 15-26 Aorta Root diameter, ED 31 mm 20-37 DOPPLER MEASUREMENTS ADULT NORMAL Aortic valve Peak velocity, S 111 cm/s Valve area, Vmax 4.04 cm^2 Valve area index, Vmax 1.74 cm^2/m^2 Mitral valve Peak E-wave velocity 78.5 cm/s Peak A-wave velocity 40 cm/s Pressure half-time 43 ms Peak gradient, D 2 mm Hg Peak E/A ratio 2 Valve area, pressure half-time 5.12 cm^2 Valve area index, pressure half-time 2.21 cm^2/m^2 Tricuspid valve Peak gradient, D 11 mm Hg Maximal inflow velocity 167 cm/s Systemic veins Estimated CVP 10 mm Hg Pulmonic valve Peak velocity, S 97.7 cm/s LEGEND: Mean values are shown as u=mean value. Asterisk (*) dunn values outside specified normal range. Prepared and signed by Jonathon Lynch [id number]
[2016-07-08] MEDS: ATORVASTATIN 20 MG TAB PO SCH (21:05)
[2016-07-09] VITALS (13 sets, daily range): BP systolic 80–119; BP diastolic 52–80; PULSE 62–142; RESP 16–19; TEMP 96–98.9; O2SAT 92–96
[2016-07-09] MEDS: CEPHALEXIN MONOHYDRATE 500 MG CAP PO SCH ×4 (03:27→21:37)
[2016-07-09] MEDS: RESP: ALBUTEROL 2.5 MG/IPRATROPIUM 0.5 MG NEB (SCH) NEB ×4 (04:20→21:06)
[2016-07-09 08:25] LABS: INTERNATIONAL NORMALIZED RATIO 2.3 RATIO; PROTHROMBIN TIME - PATIENT 26.8 SEC (9.8-11.6)
[2016-07-09] MEDS: PANTOPRAZOLE SOD 20 MG DELAYED RELEASE TAB PO SCH (08:35)
[2016-07-09] MEDS: DIGOXIN 0.125 MG TAB PO SCH ×2 (08:35→08:59)
[2016-07-09] MEDS: METOPROLOL TARTRATE 50 MG TAB PO SCH ×4 (08:35→21:38)
[2016-07-09] MEDS: NYSTATIN SUSP 500,000 U/5 ML CUP SWISH-SWAL SCH ×4 (08:35→21:38)
[2016-07-09] MEDS: WARFARIN SOD 5 MG TAB PO SCH (08:35)
[2016-07-09] MEDS: MEGESTROL ACETATE SUSP 400 MG/10 ML CUP PO SCH (08:35)
[2016-07-09] MEDS ORDERED: SODIUM CHLORID 0.9% 500 ML INJ 500 ML IV ONE (10:45)
--- NOTE | 2016-07-09 12:14 | HHI.PR ---
Subjective Remarks Called earlier by RN patient's heart rate went up to 140 and bp dropped into the 90's systolic denies cp/sob denies cough denies diarrhea states appetite is better from before and that he is eating better chart reviewed. Objective Vitals Vital Signs Date Time Temp Pulse Resp B/P Pulse Ox O2 Delivery O2 Flow Rate FiO2 07/09/16 11:47 100/62 07/09/16 11:19 118 07/09/16 09:01 95 Nasal Cannula 2.00 07/09/16 08:24 97.0 86 18 99/58 94 07/09/16 04:34 98.9 89 16 106/70 92 07/09/16 01:26 97.7 109 16 106/80 96 07/08/16 23:11 140 07/08/16 23:10 104 07/08/16 20:32 94 Nasal Cannula 2.00 07/08/16 20:26 99.4 61 16 106/64 95 07/08/16 15:41 95.2 96 20 110/71 96 I/O 07/08/16 07/08/16 07/08/16 07/09/16 07/09/16 07/09/16 07:00 15:00 23:00 07:00 15:00 23:00 Intake Total 100 ml Output Total 475 ml 425 ml 425 ml 650 ml 200 ml Balance -375 ml -425 ml -425 ml -650 ml -200 ml Intake Oral 100 ml Output Urine Total 475 ml 425 ml 425 ml 650 ml 200 ml # Bowel Movements 1 Result Diagram: 07/07/16 0730 07/08/16 0655 Imaging Last Impressions Chest X-Ray 07/06/16 1225 Signed Impressions: Service Date/Time: Wednesday, July 06, 2016 12:47 - CONCLUSION: Minimal bibasilar parenchymal changes. Otherwise, negative. Vinny Puente MD FACR Renal Ultrasound 07/06/16 0000 Signed Impressions: Service Date/Time: Wednesday, July 06, 2016 16:33 - CONCLUSION: Prominence of the extrarenal pelvis on both sides and possible dilation of the collecting system of the left kidney. Possible thin rim of perinephric fluid on the right side. Adrian Virk MD Objective Remarks GENERAL: This is a well-nourished, well-developed patient, in no apparent distress. CARDIOVASCULAR: Regular rate and regular rhythm without murmurs, gallops, or rubs. RESPIRATORY: Clear to auscultation. Breath sounds equal bilaterally. No wheezes , rales, or rhonchi. GASTROINTESTINAL: Abdomen soft, non-tender, nondistended. Normal, active bowel sounds MUSCULOSKELETAL: Extremities without clubbing, cyanosis, or edema. NEURO: Alert & Oriented x4 to person, place, time, situation. Moves all ext x4 Procedures none Medications and IVs Current Medications Medications (Trade) Dose Ordered Sig/Bianka Route Start Time Stop Time Status Last Admin (NS Flush) 2 ml UNSCH PRN IVF 07/06/16 12:30 (Lipitor) 20 mg HS PO 07/06/16 21:00 07/08/16 21:05 (Keflex) 500 mg Q6H PO 07/06/16 15:00 07/09/16 08:35 (Mycostatin Liq) 5 ml QID SWISH-SWAL 07/06/16 18:00 07/09/16 08:35 (Mylicon Chew) 80 mg QID PRN CHEW 07/06/16 14:45 Pantoprazole Sodium 20 mg 20 mg DAILY PO 07/07/16 09:00 07/09/16 08:35 (Coumadin Consult Pharmacy) 0 ml @ 0 mls/hr UNSCH OTHER 07/06/16 15:00 (Tylenol) 650 mg Q6H PRN PO 07/06/16 16:00 ([place] 5-325 Mg) 1 tab Q4H PRN PO 07/06/16 16:00 (Narcan Inj) 0.4 mg UNSCH PRN IV 07/06/16 16:00 (Megace Liq) 400 mg DAILY PO 07/07/16 14:54 07/09/16 08:35 (Lanoxin) 0.125 mg DAILY PO 07/07/16 15:00 07/09/16 08:59 (Lopressor) 50 mg BID PO 07/07/16 15:00 07/08/16 21:05 (Coumadin) 4 mg DAILY@16 PO 07/10/16 16:00 A/P Problem List: (1) Hypotension ICD Code: I95.9 Status: Acute (2) Atrial flutter with rapid ventricular response ICD Code: I48.92 Status: Acute (3) Acute renal failure (ARF) ICD Code: N17.9 Status: Resolved (4) Status post hip surgery ICD Code: Z98.890 Status: Chronic (5) Chronic respiratory failure ICD Code: J96.10 Status: Chronic (6) Pre-syncope ICD Code: R55 Status: Chronic (7) Chronic systolic (congestive) heart failure ICD Code: I50.22 Status: Chronic Assessment and Plan A/P 1. Presyncope likely secondary to hypotension from dehydration- status post IVF. 07/09 echo cardiac exam showed a systolic function which was mildly to moderately reduced. Estimated ejection fraction was in the range of 40-45%. Wall motion normal, no regional wall motion abnormalities. Patient again hypotensive today likely secondary to A. fib with RVR. Metoprolol held due to hypotension. Ordered 500 mL's of normal saline IV bolus. Continue to monitor vital signs. 2. Acute kidney injury on chronic kidney disease stage III: Likely prerenal azotemia due to hypovolemia and hypotension. Creatinine much improved back to baseline after IV fluid administration. Kidney ultrasound showed prominence of the extrarenal pelvis on both sides and possible dilation of the collecting system of the left kidney. Possible thin rim of perinephric fluid on the right side. 3. Chronic respiratory failure and home oxygen-patient sleep apnea, also had previous pleural effusion, chest x-ray personally reviewed showed bibasilar nonspecific parenchymal changes. No leukocytosis. Continue duo nebs. 4. Chronic systolic heart failure. Seems stable. Echo cardiac showed EF of 45 -50%. Chest x-ray showed minimal bibasilar parenchymal changes. Otherwise negative. History of congestive heart failure-chest x-ray as above, BNP is normal, results as above. 5. Poor appetite with poor oral intake. Poor oral intake-started Megace. Appetite improving. 6. Generalized weakness-likely secondary to dehydration, consulted physical therapy, patient is to go back to SNF once discharged. 7. Recent left hip arthroplasty- continue physical therapy, [place] for pain, bowel regimen. Continue Keflex. 8. Atrial flutter: Patient with RVR today. Continue digoxin, will decrease dose of metoprolol to 25 mg by mouth twice a day once BP more acceptable. I will consult the patient's knuckle bender Dr. Del Real. 9. Hypotension: Ordered 500 ml's of normal saline IV bolus. Continue to monitor vital signs. DVT prophylaxis: Coumadin Discharge Planning Continue to monitor in the medical floor. Michael Headley MD Jul 09, 2016 12:14
--- NOTE | 2016-07-09 13:24 | PD.ORT.PN ---
Subjective Subjective Remarks hip doing well, no significant pain Objective Vitals Vital Signs Date Time Temp Pulse Resp B/P Pulse Ox O2 Delivery O2 Flow Rate FiO2 07/09/16 11:47 100/62 07/09/16 11:19 118 07/09/16 11:00 96.8 98 19 81/56 94 80/52 07/09/16 10:12 142 98/69 07/09/16 09:01 95 Nasal Cannula 2.00 07/09/16 08:24 97.0 86 18 99/58 94 07/09/16 04:34 98.9 89 16 106/70 92 07/09/16 01:26 97.7 109 16 106/80 96 07/08/16 23:11 140 07/08/16 23:10 104 07/08/16 20:32 94 Nasal Cannula 2.00 07/08/16 20:26 99.4 61 16 106/64 95 07/08/16 15:41 95.2 96 20 110/71 96 I/O 07/08/16 07/08/16 07/08/16 07/09/16 07/09/16 07/09/16 07:00 15:00 23:00 07:00 15:00 23:00 Intake Total 100 ml Output Total 475 ml 425 ml 425 ml 650 ml 200 ml Balance -375 ml -425 ml -425 ml -650 ml -200 ml Intake Oral 100 ml Output Urine Total 475 ml 425 ml 425 ml 650 ml 200 ml # Bowel Movements 1 Result Diagram: 07/07/16 0730 07/08/16 0655 Other Results Laboratory Tests Test 07/09/16 07:01 Prothrombin Time 26.8 SEC (9.8-11.6) Prothromb Time International 2.3 RATIO Ratio Objective Remarks in bed, nad, O2 cannula in place hip incision healing as expected, no sign of infection thigh soft, small hematoma neg homans nvi Assessment & Plan Assessment and Plan s/p L BASILIO wbat - posterior hip precautions monitor incision, healing as expected coumadin ortho stable f/up dr. bright 2 weeks upon d/c Brandan So Jul 09, 2016 13:24
--- NOTE | 2016-07-09 17:18 | PD.CONS ---
HPI Service Cardiology Consult Requested By Hosp Reason for Consult Afib/Aflutter Primary Care Physician Bonifacio Servin MD History of Present Illness 70-year-old male with pmhx of atrial fibrillation on chronic oral anticoagulation, obstructive sleep apnea, COPD on home oxygen and recent left total hip arthroplasty 06/17/16, admitted to the hospital with a presyncopal attack/generalized weakness. He reports progressive generalized weakness in the setting of poor PO intake. Patient denies any fever, chills, shortness of breath, nausea, vomiting, chest pain or palpitations. Cardiology consulted due to Afib/AF. Review of Systems Consitutional: DENIES: Fatigue, Fever, Chills, Weight gain, Weight loss Eyes: DENIES: Amaurosis Fugax, Change in vision HEENT: COMPLAINS OF: Lightheadedness, DENIES: Change in hearing Respiratory: DENIES: See HPI, Cough, Snoring, Shortness of breath, Wheezing, Sputum production Cardiovascular: DENIES: See HPI, Chest pain, Palpitations, Syncope, Tachycardia Gastrointestinal: DENIES: Nausea, Vomiting, Change in bowel habits, Reflux, Bloody stools, Melena Genitourinary: DENIES: Urinary incontinence, Difficulty voiding Integumentary: DENIES: Rash Neurologic: DENIES: Tingling or numbness, Memory problems, Poor Balance, Stroke symptoms Musculoskeletal: DENIES: Joint pain, Muscle pain, Limited range of motion, Back pain Psychiatric: DENIES: Anxiety, Depression, Sleep disturbances Hematologic: DENIES: Bruising tendencies, Bleeding tendencies Endocrine: DENIES: Weight gain, Weight loss, Thyroid disease Past Family Social History Allergies: Coded Allergies: No Known Allergies (Verified , 07/06/16) Past Medical History 1. Chronic atrial fibrillation/flutter. 2. Hypertension. 3. Hyperlipidemia. 4. Osteoarthritis. 5. Obstructive sleep apnea 6. Chronic respiratory failure on home oxygen Past Surgical History 1. Right knee surgery for a meniscal tear. 2. Spinal fusion of C4-C5. 3. Left hip replacement Reported Medications Reported Meds & Active Scripts Active Duoneb (Ipratropium-Albuterol Neb) 0.5-2.5 Mg/3 Ml Neb 1 Ampule NEB Q6HR NEB Walker with Front Wheels (Device) 1 Mis Mis 1 Ea .ROUTE DIRECTED [place] (Hydrocodone-Acetaminophen) 7.5-325 mg Tab 1-2 Tab PO Q6H PRN Reported Miralax Powder (Polyethylene Glycol 3350 Powder) 17 Gm Powd 17 Gm PO DAILY Mix and dissolve one measuring cap-ful (17 grams) in water or juice. Gas-X (Simethicone) 80 Mg Chew 80 Mg CHEW QID PRN Keflex (Cephalexin) 500 Mg Cap 500 Mg PO Q6H Zofran Odt (Ondansetron Odt) 4 Mg Tab 4 Mg SL Q6HR PRN Nystatin Liq 100,000 unit/ml Susp 5 Ml SWISH-SWAL QID Omeprazole 20 Mg Tab 20 Mg PO DAILY Warfarin 5 Mg Tab 5 Mg PO DAILY Vitamin C (Ascorbic Acid) 250 Mg Chew Unknown Dose CHEW DAILY Centrum Adults (Multiple Vitamins W/ Minerals) 1 Tab 1 Tab PO DAILY Lisinopril 2.5 Mg Tab 2.5 Mg PO DAILY Digox (Digoxin) 0.125 Mg Tab 0.125 Mg PO DAILY Warfarin 3 Mg Tab 3 Mg PO MO,WE,FR Warfarin 6 Mg Tab 6 Mg PO DAILY Metoprolol Tartrate 50 Mg Tab 50 Mg PO BID Atorvastatin (Atorvastatin Calcium) 20 Mg Tab 20 Mg PO HS Active Ordered Medications Current Medications Medications (Trade) Dose Ordered Sig/Bianka Route Start Time Stop Time Status Last Admin (NS Flush) 2 ml UNSCH PRN IVF 07/06/16 12:30 (Lipitor) 20 mg HS PO 07/06/16 21:00 07/08/16 21:05 (Keflex) 500 mg Q6H PO 07/06/16 15:00 07/09/16 13:36 (Mycostatin Liq) 5 ml QID SWISH-SWAL 07/06/16 18:00 07/09/16 16:04 (Mylicon Chew) 80 mg QID PRN CHEW 07/06/16 14:45 Pantoprazole Sodium 20 mg 20 mg DAILY PO 07/07/16 09:00 07/09/16 08:35 (Coumadin Consult Pharmacy) 0 ml @ 0 mls/hr UNSCH OTHER 07/06/16 15:00 (Tylenol) 650 mg Q6H PRN PO 07/06/16 16:00 ([place] 5-325 Mg) 1 tab Q4H PRN PO 07/06/16 16:00 (Narcan Inj) 0.4 mg UNSCH PRN IV 07/06/16 16:00 (Megace Liq) 400 mg DAILY PO 07/07/16 14:54 07/09/16 08:35 (Lanoxin) 0.125 mg DAILY PO 07/07/16 15:00 07/09/16 08:59 (Coumadin) 4 mg DAILY@16 PO 07/10/16 16:00 (Lopressor) 25 mg BID PO 07/09/16 16:00 07/09/16 16:04 Family History Noncontributory Physical Exam Vital Signs Vital Signs Date Time Temp Pulse Resp B/P Pulse Ox O2 Delivery O2 Flow Rate FiO2 07/09/16 16:09 96 Nasal Cannula 2.00 07/09/16 15:58 96.8 82 19 119/69 94 07/09/16 11:47 100/62 07/09/16 11:19 118 07/09/16 11:00 96.8 98 19 81/56 94 80/52 07/09/16 10:12 142 98/69 07/09/16 09:01 95 Nasal Cannula 2.00 07/09/16 08:24 97.0 86 18 99/58 94 07/09/16 04:34 98.9 89 16 106/70 92 07/09/16 01:26 97.7 109 16 106/80 96 07/08/16 23:11 140 07/08/16 23:10 104 07/08/16 20:32 94 Nasal Cannula 2.00 07/08/16 20:26 99.4 61 16 106/64 95 Physical Exam GENERAL: Well-nourished, well-developed patient. SKIN: Warm and dry. HEAD: Normocephalic. EYES: No scleral icterus. No injection or drainage. NECK: Supple, trachea midline. No JVD or lymphadenopathy. CARDIOVASCULAR: Irr Irr without murmurs, gallops, or rubs. RESPIRATORY: Breath sounds equal bilaterally. No accessory muscle use. GASTROINTESTINAL: Abdomen soft, non-tender, nondistended. EXTREMITIES: No cyanosis, or edema. Laboratory Laboratory Tests Test 07/09/16 07:01 Prothrombin Time 26.8 Prothromb Time International 2.3 Ratio Result Diagram: 07/07/16 0730 07/08/16 0655 Imaging Echo 07/06/16- EF 40-45%. No WMA Last Impressions Chest X-Ray 07/06/16 1225 Signed Impressions: Service Date/Time: Wednesday, July 06, 2016 12:47 - CONCLUSION: Minimal bibasilar parenchymal changes. Otherwise, negative. Vinny Puente MD FACR Renal Ultrasound 07/06/16 0000 Signed Impressions: Service Date/Time: Wednesday, July 06, 2016 16:33 - CONCLUSION: Prominence of the extrarenal pelvis on both sides and possible dilation of the collecting system of the left kidney. Possible thin rim of perinephric fluid on the right side. Adrian Virk MD Assessment and Plan Problem List: (1) Atrial flutter Assessment and Plan: 70 y/o M admitted with weakness, GALI and afib/AF in the setting of decrease PO intake and recent hip replacement. He had an episode of AF with RVR and hypotension today while getting out of bed. He denied chest pain, SOB, palpitations or syncope. Good response to IVF. Lopressor dose decreased by primary care team. Recommendations: Cont BB Lopressor 25mg PO BID Cont Digoxin Cont Oral Anticoagulation Cont surveillance monitor IV hydration Encourage incentive spirometry Strict I&O Avoid electrolyte abnormalities (2) Pre-syncope (3) Chronic respiratory failure (4) Acute renal failure (ARF) (5) Chronic systolic (congestive) heart failure Problem Qualifiers (1) Atrial flutter: Qualified Code: I48.92 - Atrial flutter, unspecified type Henry Souza MD Jul 09, 2016 17:18
[2016-07-09] MEDS ORDERED: METOPROLOL TARTRATE 50 MG TAB PO SCH (21:00)
[2016-07-09] MEDS: ATORVASTATIN 20 MG TAB PO SCH (21:37)
[2016-07-10] VITALS (10 sets, daily range): BP systolic 95–135; BP diastolic 56–75; PULSE 64–109; RESP 17–19; TEMP 96–97.7; O2SAT 91–97
[2016-07-10] MEDS: CEPHALEXIN MONOHYDRATE 500 MG CAP PO SCH ×4 (03:20→22:32)
[2016-07-10] MEDS: RESP: ALBUTEROL 2.5 MG/IPRATROPIUM 0.5 MG NEB (SCH) NEB ×2 (03:37→09:12)
[2016-07-10 08:35] LABS: AUTOMATED NEUTROPHIL # 5.7 TH/MM3 (1.8-7.7); BASOPHIL % 0.6 % (0.0-2.0); EOSINOPHIL # 0.4 TH/MM3 (0-0.4); EOSINOPHIL % 4.3 % (0.0-4.0); HEMO FLAGS DIFF FINAL; LYMPH % 19.6 % (9.0-44.0); LYMPHOCYTE # 1.6 TH/MM3 (1.0-4.8); MEAN CELL VOLUME 92.8 FL (80.0-100.0); MEAN CORPUSCULAR HEMOGLOBIN 32.5 PG (27.0-34.0); MONO % 6.8 % (0.0-8.0); NEUT % 68.7 % (16.0-70.0); PLATELET COUNT 278 TH/MM3 (150-450); RED BLOOD COUNT 3.88 MIL/MM3 (4.50-5.90); RED CELL DISTRIBUTION WIDTH 13.6 % (11.6-17.2); WHITE BLOOD COUNT 8.2 TH/MM3 (4.0-11.0)
[2016-07-10 08:44] LABS: INTERNATIONAL NORMALIZED RATIO 2.6 RATIO; PROTHROMBIN TIME - PATIENT 30.1 SEC (9.8-11.6)
[2016-07-10 09:03] LABS: ALKALINE PHOSPHATASE 197 U/L (45-117); ALT (GPT) 51 U/L (12-78); ANION GAP 8 MEQ/L (5-15); AST (GOT) 31 U/L (15-37); BICARBONATE 27.4 MEQ/L (21.0-32.0); BLOOD UREA NITROGEN 16 MG/DL (7-18); CHLORIDE 107 MEQ/L (98-107); GLOMERULAR FILTRATION RATE 77 ML/MIN (>89); SODIUM (NA) 142 MEQ/L (136-145); TOTAL BILIRUBIN ADULT 0.5 MG/DL (0.2-1.0)
[2016-07-10] MEDS: DIGOXIN 0.125 MG TAB PO SCH (09:47)
[2016-07-10] MEDS: NYSTATIN SUSP 500,000 U/5 ML CUP SWISH-SWAL SCH ×4 (09:48→22:33)
[2016-07-10] MEDS: MEGESTROL ACETATE SUSP 400 MG/10 ML CUP PO SCH (09:48)
[2016-07-10] MEDS: METOPROLOL TARTRATE 50 MG TAB PO SCH ×2 (09:48→22:33)
[2016-07-10] MEDS: PANTOPRAZOLE SOD 20 MG DELAYED RELEASE TAB PO SCH (09:48)
[2016-07-10] MEDS ORDERED: WARFARIN SOD 4 MG TAB PO SCH (16:00)
[2016-07-10] MEDS ORDERED: WARFARIN SOD 2.5 MG TAB PO SCH (16:00)
--- NOTE | 2016-07-10 20:07 | HHI.PR ---
Subjective Remarks pain controlled patient denies cp/sob stable vital signs heart rate controlled Objective Vitals Vital Signs Date Time Temp Pulse Resp B/P Pulse Ox O2 Delivery O2 Flow Rate FiO2 07/10/16 16:01 97.7 84 17 95/66 94 07/10/16 12:08 96.8 76 17 135/75 96 07/10/16 10:06 109 07/10/16 09:14 97 21 07/10/16 08:31 96.8 86 17 133/75 95 07/10/16 04:03 96.3 64 18 119/75 96 07/10/16 03:38 91 Nasal Cannula 2.00 07/10/16 00:00 96.3 86 18 125/65 94 07/09/16 23:25 124 07/09/16 20:26 116 I/O 07/09/16 07/09/16 07/09/16 07/10/16 07/10/16 07/10/16 07:00 15:00 23:00 07:00 15:00 23:00 Intake Total 620 ml 120 ml 1345 ml 240 ml Output Total 650 ml 700 ml 250 ml 350 ml 600 ml Balance -650 ml -80 ml -250 ml -230 ml 745 ml 240 ml Intake Oral 120 ml 120 ml 1345 ml 240 ml IV Total 500 ml Output Urine Total 650 ml 700 ml 250 ml 350 ml 600 ml # Voids 2 # Bowel Movements 1 Result Diagram: 07/10/16 0759 07/10/16 0759 Imaging Last Impressions Chest X-Ray 07/06/16 1225 Signed Impressions: Service Date/Time: Wednesday, July 06, 2016 12:47 - CONCLUSION: Minimal bibasilar parenchymal changes. Otherwise, negative. Vinny Puente MD FACR Renal Ultrasound 07/06/16 0000 Signed Impressions: Service Date/Time: Wednesday, July 06, 2016 16:33 - CONCLUSION: Prominence of the extrarenal pelvis on both sides and possible dilation of the collecting system of the left kidney. Possible thin rim of perinephric fluid on the right side. Adrian Virk MD Objective Remarks GENERAL: This is a well-nourished, well-developed patient, in no apparent distress. CARDIOVASCULAR: Regular rate and regular rhythm without murmurs, gallops, or rubs. RESPIRATORY: Clear to auscultation. Breath sounds equal bilaterally. No wheezes , rales, or rhonchi. GASTROINTESTINAL: Abdomen soft, non-tender, nondistended. Normal, active bowel sounds MUSCULOSKELETAL: Extremities without clubbing, cyanosis, or edema. NEURO: Alert & Oriented x4 to person, place, time, situation. Moves all ext x4 Procedures none Medications and IVs Current Medications Medications (Trade) Dose Ordered Sig/Bianka Route Start Time Stop Time Status Last Admin (NS Flush) 2 ml UNSCH PRN IVF 07/06/16 12:30 (Lipitor) 20 mg HS PO 07/06/16 21:00 07/09/16 21:37 (Keflex) 500 mg Q6H PO 07/06/16 15:00 07/10/16 17:09 (Mycostatin Liq) 5 ml QID SWISH-SWAL 07/06/16 18:00 07/10/16 17:10 (Mylicon Chew) 80 mg QID PRN CHEW 07/06/16 14:45 Pantoprazole Sodium 20 mg 20 mg DAILY PO 07/07/16 09:00 07/10/16 09:48 (Coumadin Consult Pharmacy) 0 ml @ 0 mls/hr UNSCH OTHER 07/06/16 15:00 (Tylenol) 650 mg Q6H PRN PO 07/06/16 16:00 ([place] 5-325 Mg) 1 tab Q4H PRN PO 07/06/16 16:00 (Narcan Inj) 0.4 mg UNSCH PRN IV 07/06/16 16:00 (Megace Liq) 400 mg DAILY PO 07/07/16 14:54 07/10/16 09:48 (Lanoxin) 0.125 mg DAILY PO 07/07/16 15:00 07/10/16 09:47 (Lopressor) 25 mg BID PO 07/09/16 16:00 07/10/16 09:48 (Coumadin) 4 mg DAILY@16 PO 07/11/16 16:00 (Coumadin) 2.5 mg ONCE PO 07/10/16 16:00 07/10/16 21:00 07/10/16 17:09 Urinary Catheter: No Vascular Central Line Catheter: No A/P Problem List: (1) Hypotension ICD Code: I95.9 Status: Acute (2) Atrial flutter with rapid ventricular response ICD Code: I48.92 Status: Acute (3) Acute renal failure (ARF) ICD Code: N17.9 Status: Resolved (4) Status post hip surgery ICD Code: Z98.890 Status: Chronic (5) Chronic respiratory failure ICD Code: J96.10 Status: Chronic (6) Pre-syncope ICD Code: R55 Status: Chronic (7) Chronic systolic (congestive) heart failure ICD Code: I50.22 Status: Chronic Assessment and Plan A/P 1. Presyncope likely secondary to hypotension from dehydration- status post IVF. 07/09 echo cardiac exam showed a systolic function which was mildly to moderately reduced. Estimated ejection fraction was in the range of 40-45%. Wall motion normal, no regional wall motion abnormalities. Patient again hypotensive today likely secondary to A. fib with RVR. Metoprolol held due to hypotension. Ordered 500 mL's of normal saline IV bolus. Continue to monitor vital signs. 07/10 Bp and heart rate much improved. Continue metoprolol 25 mg by mouth twice a day, dose reduced from 50 mg by mouth twice a day. Appreciate cardiology consultation recommendations. Continue digoxin, continue telemetry. 2. Acute kidney injury on chronic kidney disease stage III: Likely prerenal azotemia due to hypovolemia and hypotension. Creatinine much improved back to baseline after IV fluid administration. Kidney ultrasound showed prominence of the extrarenal pelvis on both sides and possible dilation of the collecting system of the left kidney. Possible thin rim of perinephric fluid on the right side. 3. Chronic respiratory failure and home oxygen-patient sleep apnea, also had previous pleural effusion, chest x-ray personally reviewed showed bibasilar nonspecific parenchymal changes. No leukocytosis. Continue duo nebs. 4. Chronic systolic heart failure. Seems stable. Echo cardiac showed EF of 45 -50%. Chest x-ray showed minimal bibasilar parenchymal changes. Otherwise negative. History of congestive heart failure-chest x-ray as above, BNP is normal, results as above. 5. Poor appetite with poor oral intake. Poor oral intake-started Megace. Appetite improving. 6. Generalized weakness-likely secondary to dehydration, consulted physical therapy, patient is to go back to SNF once discharged. 7. Recent left hip arthroplasty- continue physical therapy, [place] for pain, bowel regimen. Continue Keflex. 8. Atrial flutter: Patient with RVR today. Rate controlled. Dose of metoprolol decreased to 25 mg by mouth twice a day. Appreciate cardiology consultation recommendations. 9. Hypotension: Patient is status post 500 mL of normal saline IV bolus. Continue to monitor vital signs DVT prophylaxis: Coumadin Discharge Planning Discharge in a.Michael Roberts MD Jul 10, 2016 20:07
[2016-07-10] MEDS: ATORVASTATIN 20 MG TAB PO SCH (22:34)
[2016-07-11] VITALS: BP 113/81; PULSE 86; RESP 18; TEMP 97.5; O2SAT 95
[2016-07-11 04:00] VITALS: BP 113/63; PULSE 80; RESP 20; TEMP 96.5; O2SAT 96
[2016-07-11] MEDS: CEPHALEXIN MONOHYDRATE 500 MG CAP PO SCH ×2 (04:20→08:53)
[2016-07-11 07:03] LABS: INTERNATIONAL NORMALIZED RATIO 2.4 RATIO; PROTHROMBIN TIME - PATIENT 27.2 SEC (9.8-11.6)
[2016-07-11 07:39] VITALS: BP 119/79; PULSE 90; RESP 22; TEMP 96; O2SAT 95
[2016-07-11] MEDS: MEGESTROL ACETATE SUSP 400 MG/10 ML CUP PO SCH (08:53)
[2016-07-11] MEDS: NYSTATIN SUSP 500,000 U/5 ML CUP SWISH-SWAL SCH ×2 (08:53→12:18)
[2016-07-11] MEDS: PANTOPRAZOLE SOD 20 MG DELAYED RELEASE TAB PO SCH (08:54)
[2016-07-11] MEDS: DIGOXIN 0.125 MG TAB PO SCH (08:54)
[2016-07-11] MEDS: METOPROLOL TARTRATE 50 MG TAB PO SCH (08:57)
[2016-07-11 09:15] VITALS: PULSE 72
[2016-07-11] MEDS ORDERED: METO-309 PO (10:06)
[2016-07-11] MEDS ORDERED: COUM4TAB PO (10:06)
[2016-07-11] MEDS ORDERED: NORC5TAB PO (10:06)
[2016-07-11] MEDS ORDERED: MEGE40SU PO (10:06)
--- NOTE | 2016-07-11 10:08 | HHI.DCPOC ---
Discharge Care Plan Diagnosis: (1) Primary localized osteoarthrosis, pelvic region and thigh (2) Chronic systolic (congestive) heart failure (3) Atrial flutter with rapid ventricular response (4) Acute renal failure (ARF) (5) Hypotension (6) Pre-syncope (7) Atrial flutter (8) Chronic respiratory failure Goals to Promote Your Health * To prevent worsening of your condition and complications * To maintain your health at the optimal level Directions to Meet Your Goals Take your medications as prescribed Follow your dietary instruction Follow activity as directed Keep your appointments as scheduled Take your immunizations and boosters as scheduled If your symptoms worsen call your PCP, if no PCP go to Urgent Care Center or Emergency Room Smoking is Dangerous to Your Health. Avoid second hand smoke Call the 24-hour hour crisis hotline for domestic abuse at Michael Headley MD Jul 11, 2016 10:08
--- NOTE | 2016-07-11 11:27 | HHI.DS ---
Discharge Summary Admission Date Jul 06, 2016 at 14:47 Discharge Date: Jul 11, 2016 Admitting Diagnosis near syncope/acute renal failure (1) Hypotension ICD Code: I95.9 Diagnosis: Principal (2) Atrial flutter with rapid ventricular response ICD Code: I48.92 Diagnosis: Principal (3) Acute renal failure (ARF) ICD Code: N17.9 Diagnosis: Principal (4) Status post hip surgery ICD Code: Z98.890 Diagnosis: Principal (5) Chronic respiratory failure ICD Code: J96.10 Diagnosis: Principal (6) Pre-syncope ICD Code: R55 Diagnosis: Principal (7) Chronic systolic (congestive) heart failure ICD Code: I50.22 Diagnosis: Principal Procedures none Brief History - From Admission This is a 70-year-old male with history of atrial fibrillation, obstructive sleep apnea, chronic respiratory failure with home oxygen, and congestive heart failure presenting to the hospital with a presyncopal attack/generalized weakness. Of note, patient went for a left total hip arthroplasty 06/17/16, patient's hospital stay was complicated with atrial fibrillation with RVR and hypoxia secondary to pleural effusion for which the patient was diuresed with good response. Patient was then discharged to rehabilitation. Patient has been doing fine until about a week ago when he started having progressive generalized weakness with poor oral intake due to an erection. Patient denies any fever, chills, shortness of breath, nausea, vomiting, chest pain or palpitations. Today however, his generalized weakness is so bad that when he was doing physical therapy, he is legs gave way, he became dizzy and lightheaded but he did not have any palpitations or blurring of vision. Again there is no note of any chest pain. Patient did not pass out. He admits to poor oral intake in the last 2 weeks since he was transferred to rehabilitation. CBC/BMP: 07/10/16 0759 07/10/16 0759 Significant Findings Laboratory Tests Test 07/09/16 07/10/16 07/11/16 07:01 07:59 06:24 Prothrombin Time 26.8 SEC 30.1 SEC 27.2 SEC (9.8-11.6) (9.8-11.6) (9.8-11.6) Red Blood Count 3.88 MIL/MM3 (4.50-5.90) Hemoglobin 12.6 GM/DL (13.0-17.0) Hematocrit 36.0 % (39.0-51.0) Eosinophils (%) (Auto) 4.3 % (0.0-4.0) Estimat Glomerular Filtration 77 ML/MIN (>89) Rate Random Glucose 109 MG/DL (74-106) Alkaline Phosphatase 197 U/L (45-117) Total Protein 6.3 GM/DL (6.4-8.2) Albumin 2.8 GM/DL (3.4-5.0) Imaging Last Impressions Chest X-Ray 07/06/16 1225 Signed Impressions: Service Date/Time: Wednesday, July 06, 2016 12:47 - CONCLUSION: Minimal bibasilar parenchymal changes. Otherwise, negative. Vinny Puente MD FACR Renal Ultrasound 07/06/16 0000 Signed Impressions: Service Date/Time: Wednesday, July 06, 2016 16:33 - CONCLUSION: Prominence of the extrarenal pelvis on both sides and possible dilation of the collecting system of the left kidney. Possible thin rim of perinephric fluid on the right side. Adrian Virk MD PE at Discharge GENERAL: This is a well-nourished, well-developed patient, in no apparent distress. CARDIOVASCULAR: Regular rate and regular rhythm without murmurs, gallops, or rubs. RESPIRATORY: Clear to auscultation. Breath sounds equal bilaterally. No wheezes , rales, or rhonchi. GASTROINTESTINAL: Abdomen soft, non-tender, nondistended. Normal, active bowel sounds MUSCULOSKELETAL: Extremities without clubbing, cyanosis, or edema. NEURO: Alert & Oriented x4 to person, place, time, situation. Moves all ext x4 Pt update on day of discharge Denies cp/sob. pain controlled. Telemetry shows stable atrial flutter in the 70' s. Hospital Course 1. Presyncope likely secondary to hypotension from dehydration- status post IVF. 07/09 echo cardiac exam showed a systolic function which was mildly to moderately reduced. Estimated ejection fraction was in the range of 40-45%. Wall motion normal, no regional wall motion abnormalities. Patient again hypotensive today likely secondary to A. fib with RVR. Metoprolol held due to hypotension. Ordered 500 mL's of normal saline IV bolus. . 4/5 Bp and heart rate much improved. Continue metoprolol 25 mg by mouth twice a day, dose reduced from 50 mg by mouth twice a day. cardiology consulted. Continue digoxin, continue telemetry. 2. Acute kidney injury on chronic kidney disease stage III: Likely prerenal azotemia due to hypovolemia and hypotension. Creatinine much improved back to baseline after IV fluid administration. Kidney ultrasound showed prominence of the extrarenal pelvis on both sides and possible dilation of the collecting system of the left kidney. Possible thin rim of perinephric fluid on the right side. 3. Chronic respiratory failure and home oxygen-patient sleep apnea, also had previous pleural effusion, chest x-ray personally reviewed showed bibasilar nonspecific parenchymal changes. No leukocytosis. Continue duo nebs. 4. Chronic systolic heart failure. Seems stable. Echo cardiac showed EF of 45 -50%. Chest x-ray showed minimal bibasilar parenchymal changes. Otherwise negative. History of congestive heart failure-chest x-ray as above, BNP is normal, results as above. 5. Poor appetite with poor oral intake. Poor oral intake-started Megace. Appetite improving. 6. Generalized weakness-likely secondary to dehydration, consulted physical therapy, patient is to go back to SNF once discharged. 7. Recent left hip arthroplasty- continue physical therapy, Bowie for pain, bowel regimen. Continue Keflex. 8. Atrial flutter: Patient with RVR today responsive to IVF administration. Rate controlled. Dose of metoprolol decreased to 25 mg by mouth twice a day. Appreciate cardiology consultation recommendations. 9. Hypotension: Patient is status post 500 mL of normal saline IV bolus. Continue to monitor vital signs Pt Condition on Discharge: Stable Discharge Disposition: Discharge to SNF Discharge Time: > 30 minutes Discharge Instructions DIET: Follow Instructions for: Heart Healthy Diet Activities you can perform: See Additionl Instruction Other Activity Instructions: wbat - posterior hip precautions Follow up Referrals: Cardiology - 1 Week with Benjamin Del Real MD Orthopedics - 2 Weeks with Brandan Jacobo MD PCP Follow-up - 2 Weeks New Medications: Hydrocodone-Acetaminophen (Bowie) 5-325 mg Tab 1 TAB PO Q4H PRN PAIN #30 Ref 0 TAB Megestrol Liq (Megestrol Liq) 40 Mg/Ml Susp 400 MG PO DAILY poor appetite #1 BOTTLE Metoprolol Tartrate (Lopressor) 50 Mg Tab 25 MG PO BID afib #62 TAB Warfarin (Coumadin) 4 Mg Tab 4 MG PO DAILY@16 Blood Clot Prevention #31 TAB Continued Medications: Ascorbic Acid (Vitamin C) 250 Mg Chew Unknown Dose CHEW DAILY Nutritional Supplement #30 Ref 0 TAB Atorvastatin (Atorvastatin) 20 Mg Tab 20 MG PO HS Cholesterol Management #30 Ref 0 TAB Digoxin (Digox) 0.125 Mg Tab 0.125 MG PO DAILY Regulate Heart Beat #30 Ref 0 TAB Ipratropium-Albuterol Neb (Duoneb) 0.5-2.5 Mg/3 Ml Neb 1 AMPULE NEB Q6HR NEB Breathing Treatment #120 ML Multiple Vitamins W/ Minerals (Centrum Adults) 1 Tab 1 TAB PO DAILY Nutritional Supplement Ref 0 TAB Nystatin Liq (Nystatin Liq) 100,000 unit/ml Susp 5 ML SWISH-SWAL QID Infection Ref 0 ML Omeprazole (Omeprazole) 20 Mg Tab 20 MG PO DAILY #30 Ref 0 TAB Ondansetron Odt (Zofran Odt) 4 Mg Tab 4 MG SL Q6HR PRN Nausea/Vomiting #30 Ref 0 TAB Polyethylene Glycol 3350 Powder (Miralax Powder) 17 Gm Powd 17 GM PO DAILY Mix and dissolve one measuring cap-ful (17 grams) in water or juice. Constipation #1 Ref 0 BOTTLE Simethicone (Gas-X) 80 Mg Chew 80 MG CHEW QID PRN GAS RETENTION Ref 0 TAB Discontinued Medications: Cephalexin (Keflex) 500 Mg Cap 500 MG PO Q6H Infection Ref 0 CAP Hydrocodone-Acetaminophen (Bowie) 7.5-325 mg Tab 1-2 TAB PO Q6H PRN PAIN #90 Ref 0 TAB Lisinopril (Lisinopril) 2.5 Mg Tab 2.5 MG PO DAILY #30 Ref 0 TAB Metoprolol Tartrate (Metoprolol Tartrate) 50 Mg Tab 50 MG PO BID #60 Ref 0 TAB Warfarin (Warfarin) 6 Mg Tab 6 MG PO DAILY Blood Clot Prevention #30 Ref 0 TAB Warfarin (Warfarin) 3 Mg Tab 3 MG PO MO,WE,FR Blood Clot Prevention #30 Ref 0 TAB Warfarin (Warfarin) 5 Mg Tab 5 MG PO DAILY Blood Clot Prevention #30 Ref 0 TAB Michael Headley MD Jul 11, 2016 11:27
[2016-07-11 12:17] VITALS: BP_SYST 102; BP_SYST 90; BP_DIAS 59; BP_DIAS 66; PULSE 75; RESP 20; TEMP 95.8; O2SAT 96
[2016-07-11] MEDS ORDERED: WARFARIN SOD 4 MG TAB PO SCH (16:00)
== END 2016-07-11 14:57 | DRG 683 ==
LOC: NEPE 12:10 → NEDA 14:47 → N05A 16:12
PROVIDERS: ADMIT Hospitalist; ATTEND Hospitalist
DX: N17.9 Acute kidney failure, unspecified (principal); I48.92 Unspecified atrial flutter; J96.10 Chronic respiratory failure, unspecified whether with hypoxia or hypercapnia; I95.9 Hypotension, unspecified; I50.22 Chronic systolic (congestive) heart failure; Z99.81 Dependence on supplemental oxygen; I48.2 Chronic atrial fibrillation; R63.0 Anorexia; Z96.642 Presence of left artificial hip joint; Z98.890 Other specified postprocedural states; R55 Syncope and collapse; E78.5 Hyperlipidemia, unspecified; M19.90 Unspecified osteoarthritis, unspecified site; G47.33 Obstructive sleep apnea (adult) (pediatric); F17.290 Nicotine dependence, other tobacco product, uncomplicated; E86.0 Dehydration; Z79.01 Long term (current) use of anticoagulants; I12.9 Hypertensive chronic kidney disease with stage 1 through stage 4 chronic kidney disease, or unspecified chronic kidney disease; N18.3 Chronic kidney disease, stage 3 (moderate); Z98.1 Arthrodesis status
CPT/HCPCS: 71010; 76775; 80048; 80053; 81001; 82550; 82552; 83735; 83880; 84484; 85025; 85610; 85730; 93005; 93306; 94640; 94664; 96360; 96361; J7030; J7040